=== PATIENT | female | born 1990 | race Caucasian/White ===

== ENCOUNTER 2018-09-16 20:03 | Emergency (ER) | payer OTHER ==
--- NOTE | 2018-09-16 21:10 | ED Physician Documentation ---
History of Present Illness - Stated complaint Stated Complaint: FEM - Chief complaint Chief Complaint: Abd Pain - History obtained from History obtained from: Patient - Additonal information Additional information: Patient is a 28-year-old female with history of endometriosis presenting with concern for flare of endometriosis. Patient reports that her symptoms today are exactly the same as during her normal flares. She complains of lower pelvic pain that radiates towards her back without other back pain, abdominal pain, nausea, vomiting, urinary changes, or stool changes. Patient reports no new vaginal pain, vaginal discharge, or vaginal bleeding. Patient's last menstrual period was about 1 week ago. Patient does take hormones when she is menstruating only. Patient does not have medications at home for her flares, but when she experiences a flare she sees her PCP who prescribes Dilaudid as she is allergic to codeine and other medications have not been successful. Patient is traveling from [place] to visit her and plans to return to [place] in the next several days. No other improving or worsening factors noted. Review of Systems Constitutional: denies: Fever GI: reports: Abdominal Pain. 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 - Past Surgical History Past Surgical History: Yes General: Cholecystectomy, Appendectomy /LEATHER GRAINER: section, Other - Present Medications Home Medications: Ambulatory Orders Medication Instructions Recorded Confirmed HYDROmorphone [Dilaudid] 2 mg PO Q6H #4 tablet 09/16/18 - Allergies Allergies/Adverse Reactions: Allergies Allergy/AdvReac Type Severity Reaction Status Date / Time codeine AdvReac Cramps Verified 09/16/18 20:09 - Social History Does the pt smoke?: Yes Smoking Status: Current every day smoker Does the pt drink ETOH?: No Does the pt have substance abuse?: No - Immunizations Immunizations are current?: Yes - POLST Patient has POLST: No PD ED PE NORMAL - Vitals Vital signs reviewed: Yes - General General: Alert and oriented X 3, No acute distress, Well developed/nourished - HEENT HEENT: Atraumatic, Moist mucous membranes - Neck Neck: Supple, no meningeal sign - Cardiac Cardiac: RRR, No murmur - Respiratory Respiratory: No respiratory distress, Clear bilaterally - Abdomen Abdomen: Normal bowel sounds, Soft, Non distended. No: Non tender (Extremely mild lower abdominal discomfort with palpation) - Back Back: No CVA TTP - Derm Derm: Normal color, Warm and dry, No rash - Extremities Extremities: No deformity, No tenderness to palpate - Neuro Neuro: Alert and oriented X 3, No motor deficit, No sensory deficit - Psych Psych: Normal mood, Normal affect Results - Vitals Vitals: Vital Signs - 24 hr 09/16/18 20:06 Temperature 36.2 C L Heart Rate 83 Respiratory 17 Rate Blood Pressure 123/88 H O2 Saturation 100 Oxygen O2 Source Room air PD MEDICAL DECISION MAKING - ED course Complexity details: considered differential, d/w patient, d/w family ED course: Patient presenting with concern for endometriosis flare as she experiences this regularly and today's symptoms are similar to such. Patient normally will see her primary care physician in [place] for these flares and receive IM and oral Dilaudid, however, she is traveling here visiting her . Patient denies other complicating symptoms and have lower sick concerns for ovarian torsion, ovarian cyst, fibroids, STDs, cervicitis, sepsis, as well as low suspicion for other intra-abdominal pathology given patient's previous surgeries and lack of other abdominal complaints. Do not have high suspicion for UTI or renal disease today. Do not feel patient has a requires emergent urine or blood work testing and patient agrees. Also do not feel patient requires emergent pelvic exam at this time and patient agrees. We will plan to give Dilaudid IM and small amount for home, however, advised on contacting her primary care physician for further medication and therapy, as well as other supportive cares and return precautions. Patient voiced understanding and is comfortable with discharge plan. Departure - Departure Disposition: 01 Home, Self Care Clinical Impression: Endometriosis Condition: Good Instructions: ED Endometriosis Follow-Up: your,doctor [Other] Prescriptions: HYDROmorphone [Dilaudid] 2 mg PO Q6H #4 tablet Comments: Please take other home medications as previously instructed. Please take Dilaudid as prescribed to help control endometriosis pain. Please contact your primary care physician tomorrow to schedule outpatient follow-up upon your return to [place] for further advisement on other supportive cares or refill of medication. Otherwise, if not taking Dilaudid, recommend use of ibuprofen/Tylenol as needed, as well as heat application. Return to ED sooner if experience worsening symptoms or have other concerns.
[2018-09-16] MEDS ORDERED: HYDROmorphone 1 MG/ML CARPUJECT IM STA (21:22)
[2018-09-16 22:01] VITALS: BP 127/87
== END 2018-09-16 22:02 | disposition home or self-care (01) ==
LOC: ED 20:03
DX: N80.9 Endometriosis, unspecified (principal); F17.200 Nicotine dependence, unspecified, uncomplicated
CPT/HCPCS: 99283; 99284; J1170

== ENCOUNTER 2018-12-01 12:04 | Emergency (ER) | payer OTHER ==
[2018-12-01] MEDS ORDERED: HYDROmorphone 1 MG/ML CARPUJECT IVP STA (12:37)
[2018-12-01] MEDS ORDERED: KETOROLAC 30 MG/ML VIAL IVP STA (12:37)
--- NOTE | 2018-12-01 12:39 | ED Physician Documentation ---
History of Present Illness - Stated complaint Stated Complaint: ABD PX - Chief complaint Chief Complaint: Abd Pain - History obtained from History obtained from: Patient, Family - History of Present Illness Timing: Yesterday Pain level max: 10 Pain level now: 10 - Additonal information Additional information: 28-year-old female states that she has a long history of endometriosis. She states that she normally takes Dilaudid when she has a flare. She left her prescription at home in [place]. She states she is here camping and [facility] [place] [facility]. No fevers. No vaginal bleeding or discharge. No change in sexual partners. No nausea or vomiting. Worse with movement and palpation. Better with rest. States that she has an IUD in place. She states that she has had one ablation for her endometriosis in the past. 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 - Past Surgical History Past Surgical History: Yes General: Cholecystectomy, Appendectomy /FIRE OPERATIONS FORESTER: section, Other - Present Medications Home Medications: Ambulatory Orders Medication Instructions Recorded Confirmed HYDROmorphone [Dilaudid] 2 mg PO Q6H #4 tablet 09/16/18 12/01/18 Hydromorphone HCl [Dilaudid] 4 mg PO Q6H PRN #7 tablet 12/01/18 - Allergies Allergies/Adverse Reactions: Allergies Allergy/AdvReac Type Severity Reaction Status Date / Time codeine AdvReac Cramps Verified 09/16/18 20:09 - Social History Does the pt smoke?: Yes Smoking Status: Current every day smoker Does the pt drink ETOH?: No Does the pt have substance abuse?: No - Immunizations Immunizations are current?: Yes - POLST Patient has POLST: No PD ED PE NORMAL - Vitals Vital signs reviewed: Yes - General General: Alert and oriented X 3, Well developed/nourished, Other (appears in pain) - HEENT HEENT: Moist mucous membranes - Neck Neck: Supple, no meningeal sign - Cardiac Cardiac: RRR - Respiratory Respiratory: No respiratory distress, Clear bilaterally - Abdomen Abdomen: Soft, Other (diffusely TTP lower abdomen. no peritoneal signs) - Back Back: No CVA TTP - Derm Derm: Warm and dry - Extremities Extremities: No edema - Neuro Neuro: Alert and oriented X 3 Results - Vitals Vitals: Vital Signs - 24 hr 12/01/18 12/01/18 12/01/18 12:09 12:11 14:04 Temperature 36.8 C 36.8 C 36.8 C Heart Rate 95 95 88 Respiratory 14 14 14 Rate Blood Pressure 124/90 H 124/90 H 122/88 H O2 Saturation 100 100 100 Oxygen O2 Source Room air - Labs Labs: Laboratory Tests 12/01/18 12/01/18 12/01/18 12:16 12:16 12:35 WBC 4.7 L RBC 3.93 L Hgb 12.4 Hct 36.6 L MCV 93.1 MCH 31.6 H MCHC 33.9 RDW 12.0 Plt Count 221 MPV 9.2 Neut # (Auto) 3.5 Lymph # (Auto) 0.9 L [place] # (Auto) 0.3 Eos # (Auto) 0.0 Baso # (Auto) 0.0 Absolute Nucleated RBC 0.00 Nucleated RBC % 0.0 Sodium 142 Potassium 3.4 L Chloride 106 Carbon Dioxide 26 Anion Gap 10.0 BUN 12 Creatinine 0.7 Estimated GFR (MDRD) 98 Glucose 101 H Calcium 9.3 Total Bilirubin 1.6 H AST 19 ALT 15 Alkaline Phosphatase 38 L Total Protein 7.6 Albumin 4.5 Globulin 3.1 Albumin/Globulin Ratio 1.5 Lipase 34 Urine Color YELLOW Urine Clarity CLEAR Urine pH 7.5 Ur Specific [place] 1.015 Urine Protein NEGATIVE Urine Glucose (UA) NEGATIVE Urine Ketones 15 H Urine Occult Blood NEGATIVE Urine Nitrite NEGATIVE Urine Bilirubin NEGATIVE Urine Urobilinogen 0.2 (NORMAL) Ur Leukocyte Esterase NEGATIVE Ur Microscopic Review NOT INDICATED Urine Culture Comments NOT INDICATED Urine HCG, Qual NEGATIVE PD MEDICAL DECISION MAKING - ED course Complexity details: reviewed old records, reviewed results, considered differential, d/w patient ED course: Similar to prior episodes. No acute lab abnormalities. Feels better after pain medication. Will prescribe a small amount of pain medication for home. She realizes that she will need to obtain further medications from her doctor. Patient counseled regarding signs and symptoms for which I believe and urgent re-evaluation would be necessary. Patient with good understanding of and agreement to plan and is comfortable going home at this time This document was made in part using voice recognition software. While efforts are made to proofread this document, sound alike and grammatical errors may occur. Departure - Departure Disposition: 01 Home, Self Care Clinical Impression: Endometriosis Abdominal pain Qualifiers: Abdominal location: unspecified location Qualified Code(s): R10.9 - Unspecified abdominal pain Condition: Good Instructions: ED Endometriosis Follow-Up: your,doctor in 3 days [Other] Prescriptions: Hydromorphone HCl [Dilaudid] 4 mg PO Q6H PRN #7 tablet PRN Reason: Abdominal Pain Comments: Follow-up with your doctor for further care. Return if you worsen. Do not drink alcohol or drive while on narcotic pain medicine. Note that many narcotic pain relievers also contain tylenol/acetaminophen. Please ensure that your total dose of acetaminophen from all sources does not exceed 3 grams (3000mg) per day. You may constipated on this medication, take a stool softener such as "Colace" twice a day while you are on it. Also recommend a sxil-giu-[id number] laxative such as senna or MiraLAX any day that you do not have a bowel movement. If you received narcotic pain medication in the emergency department, do not drive or operate machinery for the next 24 hours. Discharge Date/Time: 12/01/18 14:00
[2018-12-01 13:02] LABS: BASOPHILS % (AUTO) 0.4 %; EOSINOPHILS % (AUTO) 0.4 %; HGB - HEMOGLOBIN 12.4 g/dL (12.0-16.0); LYMPHOCYTES # (AUTO) 0.9 10^3/uL (1.5-3.5); LYMPHOCYTES % (AUTO) 18.6 %; MEAN CORPUSCULAR HEMOGLOBIN 31.6 pg (27.0-31.0); MEAN CORPUSCULAR HGB CONC 33.9 g/dL (32.0-36.0); MEAN CORPUSCULAR VOLUME 93.1 fL (81.0-99.0); MEAN PLATELET VOLUME 9.2 fL (7.9-10.8); MONOCYTES # (AUTO) 0.3 10^3/uL (0.0-1.0); MONOCYTES % (AUTO) 5.6 %; NEUTROPHILS # (AUTO) 3.5 10^3/uL (1.5-6.6); NEUTROPHILS % (AUTO) 74.8 %; PLT - PLATELET COUNT 221 10^3/uL (130-450); RED BLOOD COUNT 3.93 10^6/uL (4.20-5.40); WHITE BLOOD COUNT 4.7 x10^3/uL (4.8-10.8)
[2018-12-01 13:06] LABS: BILIRUBIN,URINE NEGATIVE (NEGATIVE); GLUCOSE, URINE (UA) NEGATIVE (NEGATIVE); KETONES,URINE (UA) 15 mg/dL (NEGATIVE); LEUKOCYTE ESTERASE, URINE NEGATIVE (NEGATIVE); NITRITE,URINE NEGATIVE (NEGATIVE); OCCULT BLOOD,URINE NEGATIVE (NEGATIVE); PH,URINE 7.5 PH (5.0-7.5); PROTEIN,URINE NEGATIVE (NEGATIVE); UROBILINOGEN,URINE 0.2 (NORMAL) E.U./dL (NORMAL)
[2018-12-01 13:09] LABS: CLARITY,URINE CLEAR (CLEAR); HCG UR QUAL NEGATIVE
[2018-12-01 13:15] LABS: ALBUMIN 4.5 g/dL (3.2-5.5); ALBUMIN/GLOBULIN RATIO 1.5 (1.0-2.2); BILIRUBIN,TOTAL 1.6 mg/dL (0.2-1.0); CALCIUM 9.3 mg/dL (8.5-10.3); CREATININE 0.7 mg/dL (0.4-1.0); TOTAL PROTEIN 7.6 g/dL (6.7-8.2)
[2018-12-01] MEDS ORDERED: HYDROmorphone 1 MG/ML CARPUJECT IM STA (13:32)
[2018-12-01 14:05] VITALS: BP 122/88
== END 2018-12-01 14:00 | disposition home or self-care (01) ==
LOC: ED 12:04
DX: N80.9 Endometriosis, unspecified (principal); Z97.5 Presence of (intrauterine) contraceptive device; F17.200 Nicotine dependence, unspecified, uncomplicated
CPT/HCPCS: 36415; 80053; 81003; 81025; 83690; 85025; 96372; 96374; 99283; 99284; J1170; 81001; 87086

== ENCOUNTER 2018-12-28 18:17 | Emergency (ER) | payer OTHER ==
[2018-12-28 18:23] VITALS: BP 133/78
[2018-12-28] MEDS ORDERED: HYDROmorphone 2 MG TABLET PO STA (18:39)
--- NOTE | 2018-12-28 18:42 | ED Physician Documentation ---
PD HPI ABD PAIN - Stated complaint Stated Complaint: LOWER ABD PX - Chief complaint Chief Complaint: Abd Pain - History obtained from History obtained from: Patient - History of Present Illness Timing - onset: Today (28-year-old woman who has a history of endometriosis with an excision once about a year ago. Every 2 weeks she has a flare, both with menstruation and with menstruation. Ovulation. She is having a routine flare of lower abdominal pain radiating into the right leg and back. She lives in [place] and forgot her usual pain medications. 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 - Past Surgical History Past Surgical History: Yes General: Cholecystectomy, Appendectomy /TANK TRUCK OPERATOR: section, Other - Present Medications Home Medications: Ambulatory Orders Medication Instructions Recorded Confirmed HYDROmorphone [Dilaudid] 2 mg PO Q6H #4 tablet 09/16/18 12/01/18 Hydromorphone HCl [Dilaudid] 4 mg PO Q4H PRN #7 tablet 12/28/18 Hydromorphone HCl [Dilaudid] 8 mg PO Q6H PRN 12/28/18 - Allergies Allergies/Adverse Reactions: Allergies Allergy/AdvReac Type Severity Reaction Status Date / Time doxycycline Allergy Emesis Verified 12/28/18 18:22 codeine AdvReac Cramps Verified 12/28/18 18:21 - Social History Does the pt smoke?: No Smoking Status: Never smoker Does the pt drink ETOH?: No Does the pt have substance abuse?: No - Immunizations Immunizations are current?: Yes - POLST Patient has POLST: No PD ED PE NORMAL - Vitals Vital signs reviewed: Yes - General General: Alert and oriented X 3, No acute distress - Abdomen Abdomen: Soft, Non tender - Neuro Neuro: Alert and oriented X 3, Normal speech - Psych Psych: Normal mood, Normal affect Results - Vitals Vitals: Vital Signs - 24 hr 12/28/18 18:19 Temperature 36.9 C Heart Rate 100 Respiratory 20 Rate Blood Pressure 133/78 H O2 Saturation 100 Oxygen O2 Source Room air PD MEDICAL DECISION MAKING - ED course ED course: 28-year-old woman who presents with an exacerbation of chronic pain. She is on fairly high doses of Dilaudid at home. I discussed with her that I was uncomfortable prescribing that dose, or giving her IM injections for an exacerbation of a chronic issue. She was given 4 mg orally of Dilaudid here and a prescription for a few pills, discussed that further pain medications needed to come from her physician. Departure - Departure Disposition: Home, Self Care Clinical Impression: Endometriosis Abdominal pain Qualifiers: Abdominal location: lower abdomen, unspecified Qualified Code(s): R10.30 - Lower abdominal pain, unspecified Condition: Good Record reviewed to determine appropriate education?: Yes Instructions: ED Endometriosis Prescriptions: Hydromorphone HCl [Dilaudid] 4 mg PO Q4H PRN #7 tablet PRN Reason: Pain Comments: The policy of this emergency department is to not give more than 3 prescriptions for narcotics or other controlled substances in any 1 year. You have met this benchmark and we cannot prescribe further narcotics for you. I encourage you to follow up with your primary care physician or to establish care with a primary care physician for ongoing pain management. You are always welcome to seek emergency care here for this or new issues but there will likely be limitations in the prescription of narcotic pain medication.
== END 2018-12-28 18:49 | disposition home or self-care (01) ==
LOC: ED 18:17
DX: N80.9 Endometriosis, unspecified (principal); R10.30 Lower abdominal pain, unspecified; G89.29 Other chronic pain
CPT/HCPCS: 99283; A9270

== ENCOUNTER 2021-11-29 09:15 | Emergency (ER) | payer BC, OTHER ==
--- NOTE | 2021-11-29 09:43 | ED Physician Documentation ---
PD HPI CHEST PAIN - Stated complaint Stated Complaint: SYNCOPE/CHEST/BACK PAIN - Chief complaint Chief Complaint: Neuro - History obtained from History obtained from: Patient - History of Present Illness Timing - onset: How many days ago (2) Timing - onset during: Light activity Timing - duration: Days (2 Days of general malaise, aches, coughing and anterior chest pain with deep breathing and cough. She describes 2 episodes of feeling nauseous flushed for several minutes and then fainting briefly while standing. Concerned about the chest pain and went to a walk-in clinic. Referred to the ER.) Timing - details: Gradual onset, Still present (onset of chills, cough and malaise with nausea and less intake the past 2-3 days. Having pain in anterior chest with cough and some breathing. Had episodes of syncope yesterday.), Waxing and waning Quality: Aching, Sharp, Pain Location: Substernal Radiation: Back. No: Neck Worsened by: Inspiration, Other (cough). No: Palpation Associated symptoms: Shortness of air, Nausea, Cough, Other (2 episodes of lightheadedness followed with brief syncope while standing.) Similar symptoms before: Has not had sx before Review of Systems Constitutional: reports: Chills, Myalgias, Fatigue. denies: Fever Nose: reports: Congestion Throat: denies: Sore throat Cardiac: reports: Chest pain / pressure. denies: Palpitations, Pedal edema, Calf pain Respiratory: reports: Dyspnea, Cough GI: reports: Nausea. 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 - Past Surgical History Past Surgical History: Yes General: Cholecystectomy, Appendectomy /INSPECTING ENGINEER: section, Other - Present Medications Home Medications: Ambulatory Orders Medication Instructions Recorded Confirmed HYDROmorphone [Dilaudid] 2 mg PO Q6H #4 tablet 09/16/18 12/01/18 Hydromorphone HCl [Dilaudid] 4 mg PO Q4H PRN #7 tablet 12/28/18 Hydromorphone HCl [Dilaudid] 8 mg PO Q6H PRN 12/28/18 Benzonatate [Tessalon] 100 mg PO TID PRN #20 cap 10/04/22 Ondansetron Odt [Zofran] 4 mg TL Q6H PRN #15 tablet 11/29/21 Oxycodone HCl/Acetaminophen 1 tab PO Q6H PRN #18 tablet 11/29/21 [Percocet 5-325 mg Tablet] dexAMETHasone [Decadron] 4 mg PO DAILY #5 tablet 11/29/21 - Allergies Allergies/Adverse Reactions: Allergies Allergy/AdvReac Type Severity Reaction Status Date / Time cephalexin [From Keflex] Allergy Emesis Verified 11/29/21 09:31 doxycycline Allergy Emesis Verified 12/28/18 18:22 codeine AdvReac Cramps Verified 12/28/18 18:21 - Social History Does the pt smoke?: No Smoking Status: Never smoker Does the pt drink ETOH?: No Does the pt have substance abuse?: No - Immunizations Immunizations are current?: Yes - POLST Patient has POLST: No PD ED PE NORMAL - Vitals Vital signs reviewed: Yes - General General: Alert and oriented X 3, No acute distress, Well developed/nourished - HEENT HEENT: Pharynx benign - Neck Neck: Supple, no meningeal sign, No adenopathy - Cardiac Cardiac: RRR, No murmur - Respiratory Respiratory: Clear bilaterally - Abdomen Abdomen: Soft, Non tender - Back Back: No CVA TTP - Derm Derm: Normal color, Warm and dry - Extremities Extremities: Normal ROM s pain, No edema, No calf tenderness / cord - Neuro Neuro: Alert and oriented X 3, No motor deficit, Normal speech Results - Vitals Vitals: Oxygen O2 Source Room air - EKG (time done) 09:17 Rate: Rate (enter#) (84) Rhythm: NSR [place]: Normal Intervals: Normal ID QRS: Poor R wave progression Ischemia: Normal ST segments. No: ST elevation c/w ischemia, ST depression - Labs Labs: Laboratory Tests 11/29/21 11/29/21 11/29/21 10:09 10:09 10:09 WBC 8.0 RBC 4.01 L Hgb 13.2 Hct 38.6 MCV 96.3 MCH 32.9 H MCHC 34.2 RDW 11.8 L Plt Count 257 MPV 9.3 Neut # (Auto) 6.7 H Lymph # (Auto) 1.0 L [place] # (Auto) 0.3 Eos # (Auto) 0.0 Baso # (Auto) 0.0 Absolute Nucleated RBC 0.00 Nucleated RBC % 0.0 D-Dimer Sodium 138 Potassium 3.9 Chloride 103 Carbon Dioxide 26 Anion Gap 9.0 BUN 13 Creatinine 0.9 Estimated GFR (MDRD) 72 L Glucose 99 POC Whole Bld Glucose Calcium 9.2 Total Bilirubin 0.6 AST 14 ALT 10 Alkaline Phosphatase 45 Troponin I High Sens < 2.3 L B-Natriuretic Peptide Total Protein 7.7 Albumin 4.5 Globulin 3.2 Albumin/Globulin Ratio 1.4 Lipase 30 11/29/21 11/29/21 11/29/21 10:09 10:09 10:37 WBC RBC Hgb Hct MCV MCH MCHC RDW Plt Count MPV Neut # (Auto) Lymph # (Auto) [place] # (Auto) Eos # (Auto) Baso # (Auto) Absolute Nucleated RBC Nucleated RBC % D-Dimer < 200.0 L Sodium Potassium Chloride Carbon Dioxide Anion Gap BUN Creatinine Estimated GFR (MDRD) Glucose POC Whole Bld Glucose 90 Calcium Total Bilirubin AST ALT Alkaline Phosphatase Troponin I High Sens B-Natriuretic Peptide 22 Total Protein Albumin Globulin Albumin/Globulin Ratio Lipase - Rads (name of study) chest xray Radiology: Prelim report reviewed (no acute process), See rad report PD MEDICAL DECISION MAKING - ED course Complexity details: reviewed results, considered differential (seems likley musculoskeletal related to illness/cough, with negative trop/BNP/CXR/d-dimer. ECG showing Qs anterior/poor r wave progression, which may be normal variant. ), d/w patient Departure - Departure Disposition: 01 Home, Self Care Clinical Impression: Acute chest wall pain Upper respiratory infection Qualifiers: URI type: unspecified URI Qualified Code(s): J06.9 - Acute upper respiratory infection, unspecified Condition: Stable Record reviewed to determine appropriate education?: Yes Follow-Up: Maico Torres MD [Primary Care Provider] - Prescriptions: dexAMETHasone [Decadron] 4 mg PO DAILY #5 tablet Oxycodone HCl/Acetaminophen [Percocet 5-325 mg Tablet] 1 tab PO Q6H PRN #18 tablet PRN Reason: pain Benzonatate [Tessalon] 100 mg PO TID PRN #20 cap PRN Reason: Cough Ondansetron Odt [Zofran] 4 mg TL Q6H PRN #15 tablet PRN Reason: Nausea / Vomiting Comments: Your chest x-ray and blood tests are normal. Your EKG had showed an delayed R wave progression. Unclear whether this represents some prior inflammatory process or such or can be just a normal variation of variation of normal. It does not represent an acute injury based on your blood tests. There is also no signs of pneumonia, collapsed lung, blood clots, heart failure based on your tests. I presume the pain is musculoskeletal in the chest related to coughing and illness. We can treat this with steroidal anti-inflammatories as well as medication for nausea and cough. To that add Tylenol every 4-6 hours if needed for pain or oxycodone/acetaminophen if needed for worse pain. I sent your prescriptions to [facility] pharmacy in [place]. Recheck if not improving well over the next several days. Return if worse or other symptoms. Discharge Date/Time: 11/29/21 11:50
[2021-11-29] MEDS ORDERED: SODIUM CHLORIDE 0.9% 1,000 ML IV STA (10:04)
[2021-11-29] MEDS ORDERED: HYDROmorphone 1 MG/ML CARPUJECT IVP STA ×2 (10:04→10:42)
[2021-11-29] MEDS ORDERED: ONDANSETRON 4 MG/2 ML VIAL IVP STA (10:07)
[2021-11-29 10:19] LABS: BASOPHILS % (AUTO) 0.3 %; EOSINOPHILS % (AUTO) 0.1 %; HCT - HEMATOCRIT 38.6 % (37.0-47.0); HGB - HEMOGLOBIN 13.2 g/dL (12.0-16.0); LYMPHOCYTES % (AUTO) 12.4 %; MEAN CORPUSCULAR HEMOGLOBIN 32.9 pg (27.0-31.0); MEAN CORPUSCULAR HGB CONC 34.2 g/dL (32.0-36.0); MEAN CORPUSCULAR VOLUME 96.3 fL (81.0-99.0); MEAN PLATELET VOLUME 9.3 fL (7.9-10.8); MONOCYTES # (AUTO) 0.3 10^3/uL (0.0-1.0); MONOCYTES % (AUTO) 3.4 %; NEUTROPHILS # (AUTO) 6.7 10^3/uL (1.5-6.6); NEUTROPHILS % (AUTO) 83.4 %; PLT - PLATELET COUNT 257 10^3/uL (130-450); RED BLOOD COUNT 4.01 10^6/uL (4.20-5.40); RED CELL DISTRIBUTION WIDTH 11.8 % (12.0-15.0)
[2021-11-29 10:32] LABS: ALBUMIN 4.5 g/dL (3.2-5.5); ALBUMIN/GLOBULIN RATIO 1.4 (1.0-2.2); BILIRUBIN,TOTAL 0.6 mg/dL (0.2-1.0); CALCIUM 9.2 mg/dL (8.5-10.3); CREATININE 0.9 mg/dL (0.4-1.0); POTASSIUM 3.9 mmol/L (3.5-5.0); TOTAL PROTEIN 7.7 g/dL (6.7-8.2)
--- NOTE | 2021-11-29 10:35 | XRAY Report ---
PROCEDURE: Chest 1 View X-Ray INDICATIONS: chest pain TECHNIQUE: One view of the chest was acquired. COMPARISON: None FINDINGS: Surgical changes and devices: None. Lungs and pleura: No pleural effusions or pneumothorax. Lungs are clear. Mediastinum: Mediastinal contours appear normal. Heart size is normal. Bones and chest wall: No suspicious bony lesions. Overlying soft tissues appear unremarkable. IMPRESSION: No acute cardiopulmonary pathology. Reviewed by: Beto Odell MD on 11/29/2021 10:34 AM PDT Approved by: Beto Odell MD on 11/29/2021 10:34 AM PDT Station ID: [id number]
[2021-11-29] MEDS ORDERED: DROPERIDOL 5 MG/2 ML VIAL IVP STA (10:42)
[2021-11-29] MEDS ORDERED: KETOROLAC 15 MG/ML VIAL IVP STA (10:43)
[2021-11-29 11:35] VITALS: BP 126/86
== END 2021-11-29 11:50 | disposition home or self-care (01) ==
LOC: ED 09:15
DX: R07.89 Other chest pain (principal); J06.9 Acute upper respiratory infection, unspecified
CPT/HCPCS: 36415; 71045; 80053; 83690; 83880; 84484; 85025; 85379; 93005; 96374; 96375; 96376; 99284; 99285; J1170

== ENCOUNTER 2021-12-10 17:47 | Emergency (ER) | payer BC ==
[2021-12-10] MEDS ORDERED: ONDANSETRON 4 MG/2 ML VIAL IVP STA (18:03)
[2021-12-10] MEDS ORDERED: HYDROmorphone 1 MG/ML CARPUJECT IVP STA (18:03)
[2021-12-10] MEDS ORDERED: SODIUM CHLORIDE 0.9% 1,000 ML IV STA (18:03)
[2021-12-10 18:15] LABS: BASOPHILS % (AUTO) 0.4 %; EOSINOPHILS # (AUTO) 0.1 10^3/uL (0.0-0.7); EOSINOPHILS % (AUTO) 0.9 %; HCT - HEMATOCRIT 38.9 % (37.0-47.0); HGB - HEMOGLOBIN 13.1 g/dL (12.0-16.0); LYMPHOCYTES # (AUTO) 1.9 10^3/uL (1.5-3.5); LYMPHOCYTES % (AUTO) 24.5 %; MEAN CORPUSCULAR HEMOGLOBIN 31.9 pg (27.0-31.0); MEAN CORPUSCULAR HGB CONC 33.7 g/dL (32.0-36.0); MEAN CORPUSCULAR VOLUME 94.6 fL (81.0-99.0); MEAN PLATELET VOLUME 8.8 fL (7.9-10.8); MONOCYTES # (AUTO) 0.4 10^3/uL (0.0-1.0); MONOCYTES % (AUTO) 5.6 %; NEUTROPHILS # (AUTO) 5.4 10^3/uL (1.5-6.6); PLT - PLATELET COUNT 308 10^3/uL (130-450); RED BLOOD COUNT 4.11 10^6/uL (4.20-5.40); RED CELL DISTRIBUTION WIDTH 11.9 % (12.0-15.0); WHITE BLOOD COUNT 7.9 x10^3/uL (4.8-10.8)
--- NOTE | 2021-12-10 18:23 | ED Physician Documentation ---
History of Present Illness - Stated complaint Stated Complaint: R SIDE PX - Chief complaint Chief Complaint: Abd Pain - Additonal information Additional information: 31-year-old female presents emergency department for evaluation of acute focal right lower quadrant abdominal pain that began this morning. She reports history of endometriosis. She also has a history of adenomyosis. She has undergone gone surgical excision of the endometrial tissue last in 2019. Previous surgical history also includes appendectomy, cholecystectomy and C- section x2. She denies any fevers. She has a history of interstitial cystitis but no new symptoms to suggest acute urinary infection. She does appear very uncomfortable. Patient reports that historically in the past she has been on Dilaudid for longer-term management of her pain though she has been weaned off of it for more than a year now. 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 Psych: ADD/ADHD - Past Surgical History Past Surgical History: Yes General: Cholecystectomy, Appendectomy /CABLE SPLICER APPRENTICE: section, Other - Present Medications Home Medications: Ambulatory Orders Medication Instructions Recorded Confirmed HYDROmorphone [Dilaudid] 2 mg PO Q6H #4 tablet 09/16/18 12/01/18 Hydromorphone HCl [Dilaudid] 4 mg PO Q4H PRN #7 tablet 12/28/18 Hydromorphone HCl [Dilaudid] 8 mg PO Q6H PRN 12/28/18 Benzonatate [Tessalon] 100 mg PO TID PRN #20 cap 11/29/21 Ondansetron Odt [Zofran] 4 mg TL Q6H PRN #15 tablet 11/29/21 Oxycodone HCl/Acetaminophen 1 tab PO Q6H PRN #18 tablet 11/29/21 [Percocet 5-325 mg Tablet] dexAMETHasone [Decadron] 4 mg PO DAILY #5 tablet 11/29/21 HYDROmorphone [Dilaudid] 2 mg PO BID #8 tablet 12/10/21 - Allergies Allergies/Adverse Reactions: Allergies Allergy/AdvReac Type Severity Reaction Status Date / Time cephalexin [From Keflex] Allergy Emesis Verified 12/10/21 18:00 doxycycline Allergy Emesis Verified 12/10/21 18:00 codeine AdvReac Cramps Verified 12/10/21 18:00 - Social History Does the pt smoke?: No Smoking Status: Never smoker Does the pt drink ETOH?: No Does the pt have substance abuse?: No - Immunizations Immunizations are current?: Yes - POLST Patient has POLST: No PD ED PE NORMAL - General General: Alert and oriented X 3, Well developed/nourished. No: No acute distress (Appears in pain and uncomfortable) - HEENT HEENT: Atraumatic, Moist mucous membranes - Neck Neck: Supple, no meningeal sign, No adenopathy - Cardiac Cardiac: RRR, No murmur - Respiratory Respiratory: No respiratory distress, Clear bilaterally - Abdomen Abdomen: Normal bowel sounds, Soft. No: Non tender (Focal tenderness without guarding or rebound right lower quadrant. Nonperitoneal. 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 Eye Opening: Spontaneous Motor: Obeys Commands Verbal: Oriented GCS Score: 15 Results - Vitals Vitals: Vital Signs - 24 hr 12/10/21 12/10/21 12/10/21 17:58 18:54 20:03 Temperature 36.6 C Heart Rate 87 81 71 Respiratory 16 18 20 Rate Blood Pressure 145/112 H 141/104 H 152/111 H O2 Saturation 99 100 100 Oxygen O2 Source Room air - Labs Labs: Laboratory Tests 12/10/21 12/10/21 12/10/21 18:09 18:09 18:16 WBC 7.9 RBC 4.11 L Hgb 13.1 Hct 38.9 MCV 94.6 MCH 31.9 H MCHC 33.7 RDW 11.9 L Plt Count 308 MPV 8.8 Neut # (Auto) 5.4 Lymph # (Auto) 1.9 [place] # (Auto) 0.4 Eos # (Auto) 0.1 Baso # (Auto) 0.0 Absolute Nucleated RBC 0.00 Nucleated RBC % 0.0 Sodium 135 Potassium 3.6 Chloride 101 Carbon Dioxide 25 Anion Gap 9.0 BUN 12 Creatinine 0.8 Estimated GFR (MDRD) 83 L Glucose 98 Calcium 9.4 Total Bilirubin 0.5 AST 13 ALT 13 Alkaline Phosphatase 45 Total Protein 8.1 Albumin 4.7 Globulin 3.4 Albumin/Globulin Ratio 1.4 Lipase 34 Urine Color YELLOW Urine Clarity CLEAR Urine pH 6.0 Ur Specific [place] 1.020 Urine Protein NEGATIVE Urine Glucose (UA) NEGATIVE Urine Ketones NEGATIVE Urine Occult Blood NEGATIVE Urine Nitrite NEGATIVE Urine Bilirubin NEGATIVE Urine Urobilinogen 0.2 (NORMAL) Ur Leukocyte Esterase NEGATIVE Ur Microscopic Review NOT INDICATED Urine Culture Comments NOT INDICATED Urine HCG, Qual NEGATIVE - Rads (name of study) Pelvic US Radiology: Final report received (Arterial and venous blood flow documented with both ovaries. 2.2 cm right ovarian complex cyst is present possible hemorrhagic versus corpus luteum. IUD is present.) PD MEDICAL DECISION MAKING - ED course Complexity details: reviewed results, re-evaluated patient, considered differential, d/w patient ED course: 31-year-old female presents to the emergency department For acute right lower quadrant abdominal pain. Has a previous history of cholecystectomy and appendectomy. She also has a longstanding history of poorly controlled endometriosis for which she has required surgical excision of adhesions in the past. She also states that up until about a year ago she was being managed on Dilaudid for pain control. On exam she had focal tenderness in the right lower quadrant some nausea but no vomiting. No changes in defecation. CBC and electrolytes were without acute worrisome abnormalities. She is not . A pelvic ultrasound was completed and it does show findings of a 2.1 cm cyst on the right ovary which is likely hemorrhagic. An IUD is in place. There was nothing on the ultrasound to suggest torsion. Initially in the emergency department the patient was given an injection of Dilaudid IV which she reports did not help the pain. This was then followed by Toradol which she again states did not help the pain. She states that historically only oral Dilaudid or IM Dilaudid has been helpful. I then administered 2 mg of Dilaudid IM which she states was starting to "take the edge off." Patient is encouraged to follow closely with her PCP. She would likely benefit from referral to an OB. She states that [place]. Limited prescription for Dilaudid is being sent to the pharmacy with the patient's clear understanding that no refills can be given. I am prescribing a short course of short-acting opioid pain medication for this patient. I have reviewed the patients GIZZARD PULLER and no concerning findings were noted. I have discussed that the opioids are for short term therapy only, and will not be refilled from the ED. Departure - Departure Disposition: 01 Home, Self Care Clinical Impression: Right lower quadrant abdominal pain, Cyst of right ovary, History of endometriosis Condition: Stable Record reviewed to determine appropriate education?: Yes Prescriptions: HYDROmorphone [Dilaudid] 2 mg PO BID #8 tablet Comments: You are seen today in the emergency department for pain in your right lower pelvic region. You do have a history of endometriosis. Your labs today did not show any worrisome findings. The ultrasound does show a 2.1 cm cyst on your right ovary. It is likely hemorrhagic and these can be uncomfortable and painful. With your history of endometriosis as well as difficult to control pain it is very important that you follow closely with your primary care provider. You will need a referral to an OB in the longer term. A prescription for limited dilaudid has been sent to the [facility] in [place] If at any point you develop fevers, have uncontrolled vomiting or change in your pain symptoms then please return to the ER for second evaluation. I am prescribing a short course of narcotic pain medication for you. These are potentially dangerous and addictive medications that should be used carefully. These medications may constipate you. Take an momy-ikp-smzlxwk stool softener (docusate) twice daily with plenty of water while taking these medications. If you go 24 hours without a bowel movement, take [id number]-ttyosvx miralax, per package instructions. Do not drink or drive while taking these medications. If you received narcotic or sedating medications while in the emergency department, do not drive for 24 hours. Store this medication in a safe, secure place and out of reach of children. It is a violation of federal law to give or sell this medication to another person or to use in a manner other than prescribed. The ED will not refill narcotic prescriptions, including prescriptions lost or stolen. To dispose of unwanted medications: 1. [facility] [address] in [place] has a medication drop box. They accept prescription medications (in pill form) Sunday through Sunday 9:00 a.m. to 5:00 p.m. 2. The [facility] Police Department accepts prescription medications (in pill form only) for disposal year round. Call for more information. 3. Contact the [facility] for the next [facility] sponsored prescription drug collection event. , x7310, or x7310; Note that many narcotic pain relievers also contain Tylenol/acetaminophen. Please ensure that your total dose of acetaminophen from all sources does not exceed 3 g (3000 mg) per day.
[2021-12-10 18:29] LABS: ALBUMIN 4.7 g/dL (3.2-5.5); ALBUMIN/GLOBULIN RATIO 1.4 (1.0-2.2); BILIRUBIN,TOTAL 0.5 mg/dL (0.2-1.0); CALCIUM 9.4 mg/dL (8.5-10.3); CREATININE 0.8 mg/dL (0.4-1.0); POTASSIUM 3.6 mmol/L (3.5-5.0); TOTAL PROTEIN 8.1 g/dL (6.7-8.2)
[2021-12-10 18:36] LABS: BILIRUBIN,URINE NEGATIVE (NEGATIVE); GLUCOSE, URINE (UA) NEGATIVE (NEGATIVE); KETONES,URINE (UA) NEGATIVE (NEGATIVE); LEUKOCYTE ESTERASE, URINE NEGATIVE (NEGATIVE); NITRITE,URINE NEGATIVE (NEGATIVE); OCCULT BLOOD,URINE NEGATIVE (NEGATIVE); PROTEIN,URINE NEGATIVE (NEGATIVE); UROBILINOGEN,URINE 0.2 (NORMAL) E.U./dL (NORMAL)
[2021-12-10 18:38] LABS: CLARITY,URINE CLEAR (CLEAR); HCG UR QUAL NEGATIVE
[2021-12-10] MEDS ORDERED: KETOROLAC 30 MG/ML VIAL IVP STA (19:14)
--- NOTE | 2021-12-10 19:35 | Ultrasound Report ---
PROCEDURE: Pelvic w/Transvag+Doppler Comp INDICATIONS: ITS.REASON: RLQ pain, hx of endometriosis; r/o torsion TECHNIQUE: Real-time scanning was performed of the pelvic organs, with image documentation. Additional endovagi nal scanning was necessary due to incomplete visualization of the adnexal and endometrial structures by transabdominal scanning. Doppler interrogation was performed of the ovaries bilaterally. COMPARISON: None. FINDINGS: No pathologic free abdominal or pelvic fluid. Uterus: Uterus is normal in size at 8.2 x 4.1 x 5.9 cm. The endometrium measures 8 mm in combined t hickness. An IUD is present and appears in appropriate position. Ovaries: Right ovary measures 5.4 x 2.4 x 4.7 cm, volume 32 cc. A 2.2 cm complex cyst is present. Left ovary measures 3.3 x 1.3 x 2.9 cm, volume 7 cc. Unremarkable appearance. Normal appearing arterial and venous waveforms are confirmed to each ovary.] Other: No free pelvic fluid. IMPRESSION: 1. Arterial and venous blood flow documented within both ovaries. However, please note that ovarian t orsion is a clinical diagnosis that can present with a spectrum of imaging findings. 2. A 2.2 cm right ovarian complex cyst is present, possible hemorrhagic corpus luteum. 3. An IUD is present and appears appropriately positioned. Reviewed by: Marco Antonio Perez MD on 12/10/2021 7:34 PM PDT Approved by: Marco Antonio Perez MD on 12/10/2021 7:34 PM PDT Station ID: [id number]
[2021-12-10] MEDS ORDERED: HYDROmorphone 1 MG/ML CARPUJECT IM STA (19:55)
[2021-12-10 20:35] VITALS: BP 148/96
== END 2021-12-10 20:48 | disposition home or self-care (01) ==
LOC: ED 17:47
DX: R10.31 Right lower quadrant pain (principal); R11.0 Nausea; N83.201 Unspecified ovarian cyst, right side; Z87.42 Personal history of other diseases of the female genital tract; Z97.5 Presence of (intrauterine) contraceptive device; Z90.49 Acquired absence of other specified parts of digestive tract
CPT/HCPCS: 36415; 76830; 76856; 80053; 81003; 81025; 83690; 85025; 93975; 96372; 96374; 96375; 99283; 99284; J1170; 81001; 87086

== ENCOUNTER 2022-01-18 18:29 | Emergency (ER) | payer BC ==
[2022-01-18] MEDS ORDERED: KETOROLAC 15 MG/ML VIAL IVP STA (19:12)
[2022-01-18] MEDS ORDERED: ONDANSETRON 4 MG/2 ML VIAL IVP STA (19:12)
[2022-01-18] MEDS ORDERED: HYDROmorphone 1 MG/ML CARPUJECT IVP STA ×2 (19:12→20:09)
--- NOTE | 2022-01-18 19:14 | ED Physician Documentation ---
PD HPI ABD PAIN - Stated complaint Stated Complaint: ABD PX - Chief complaint Chief Complaint: Abd Pain - History obtained from History obtained from: Patient - Additional information Additional information: 31-year-old woman with history of endometriosis, PCOS, IUD in place. She has had a appendectomy and endometriosis referred surgeries in the past. Since yesterday she had gradual onset constant worsening and now severe right lower quadrant/pelvic pain associated with spotting. She is very nauseous but has not vomited.She noted a fever of 100.0 today. Review of Systems Ten Systems: 10 systems reviewed and negative Constitutional: reports: Fever. 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 Psych: ADD/ADHD - Past Surgical History Past Surgical History: Yes General: Cholecystectomy, Appendectomy /METEOROLOGIST LIAISON: section, Other - Present Medications Home Medications: Ambulatory Orders Medication Instructions Recorded Confirmed HYDROmorphone [Dilaudid] 2 mg PO Q6H #4 tablet 09/16/18 12/01/18 Hydromorphone HCl [Dilaudid] 4 mg PO Q4H PRN #7 tablet 12/28/18 Hydromorphone HCl [Dilaudid] 8 mg PO Q6H PRN 12/28/18 Benzonatate [Tessalon] 100 mg PO TID PRN #20 cap 11/29/21 Ondansetron Odt [Zofran] 4 mg TL Q6H PRN #15 tablet 11/29/21 Oxycodone HCl/Acetaminophen 1 tab PO Q6H PRN #18 tablet 11/29/21 [Percocet 5-325 mg Tablet] dexAMETHasone [Decadron] 4 mg PO DAILY #5 tablet 11/29/21 HYDROmorphone [Dilaudid] 2 mg PO BID #8 tablet 12/10/21 Ondansetron Odt [Zofran] 4 mg TL Q6H PRN #10 tablet 01/18/22 Oxycodone HCl/Acetaminophen 1 each PO Q6H PRN #10 tablet 01/18/22 [Percocet 5-325 mg Tablet] - Allergies Allergies/Adverse Reactions: Allergies Allergy/AdvReac Type Severity Reaction Status Date / Time cephalexin [From Keflex] Allergy Emesis Verified 01/18/22 18:36 doxycycline Allergy Emesis Verified 01/18/22 18:36 codeine AdvReac Cramps Verified 01/18/22 18:36 - Social History Does the pt smoke?: No Smoking Status: Never smoker Does the pt drink ETOH?: No Does the pt have substance abuse?: No - Immunizations Immunizations are current?: Yes - POLST Patient has POLST: No PD ED PE NORMAL - Vitals Vital signs reviewed: Yes - General General: Alert and oriented X 3, Other (She appears quite uncomfortable and in pain) - HEENT HEENT: PERRL, EOMI - Neck Neck: Supple, no meningeal sign, No bony TTP - Cardiac Cardiac: RRR, No murmur - Respiratory Respiratory: No respiratory distress, Clear bilaterally - Abdomen Abdomen: Normal bowel sounds, Soft, Other (Exquisitely tender in the right lower quadrant without surgical signs) - Back Back: No CVA TTP, No spinal TTP - Derm Derm: Normal color, Warm and dry - Extremities Extremities: No edema, No calf tenderness / cord - Neuro Neuro: Alert and oriented X 3, Normal speech Results - Vitals Vitals: Vital Signs - 24 hr 01/18/22 01/18/22 01/18/22 18:32 18:36 20:36 Temperature 36.4 C L 36.5 C Heart Rate 83 83 70 Respiratory 16 16 16 Rate Blood Pressure 147/97 H 147/97 H 136/80 H O2 Saturation 100 100 100 01/18/22 22:00 Temperature Heart Rate 72 Respiratory 16 Rate Blood Pressure 130/80 O2 Saturation 100 Oxygen O2 Source Room air - Labs Labs: Laboratory Tests 01/18/22 01/18/22 01/18/22 19:12 19:12 19:12 WBC 6.5 RBC 3.92 L Hgb 12.4 Hct 36.3 L MCV 92.6 MCH 31.6 H MCHC 34.2 RDW 11.7 L Plt Count 273 MPV 9.3 Neut # (Auto) 3.9 Lymph # (Auto) 2.1 [place] # (Auto) 0.4 Eos # (Auto) 0.1 Baso # (Auto) 0.0 Absolute Nucleated RBC 0.00 Nucleated RBC % 0.0 Sodium 135 Potassium 3.3 L Chloride 100 L Carbon Dioxide 26 Anion Gap 9.0 BUN 11 Creatinine 0.8 Estimated GFR (MDRD) 83 L Glucose 89 Calcium 8.9 Total Bilirubin 0.5 AST 15 ALT 10 Alkaline Phosphatase 40 L Total Protein 7.6 Albumin 4.5 Globulin 3.1 Albumin/Globulin Ratio 1.5 Lipase 33 Serum HCG, Qual NEGATIVE Urine Color Urine Clarity Urine pH Ur Specific [place] Urine Protein Urine Glucose (UA) Urine Ketones Urine Occult Blood Urine Nitrite Urine Bilirubin Urine Urobilinogen Ur Leukocyte Esterase Ur Microscopic Review Urine Culture Comments Urine HCG, Qual 01/18/22 21:10 WBC RBC Hgb Hct MCV MCH MCHC RDW Plt Count MPV Neut # (Auto) Lymph # (Auto) [place] # (Auto) Eos # (Auto) Baso # (Auto) Absolute Nucleated RBC Nucleated RBC % Sodium Potassium Chloride Carbon Dioxide Anion Gap BUN Creatinine Estimated GFR (MDRD) Glucose Calcium Total Bilirubin AST ALT Alkaline Phosphatase Total Protein Albumin Globulin Albumin/Globulin Ratio Lipase Serum HCG, Qual Urine Color YELLOW Urine Clarity CLEAR Urine pH 6.0 Ur Specific [place] 1.020 Urine Protein NEGATIVE Urine Glucose (UA) NEGATIVE Urine Ketones TRACE Urine Occult Blood NEGATIVE Urine Nitrite NEGATIVE Urine Bilirubin NEGATIVE Urine Urobilinogen 0.2 (NORMAL) Ur Leukocyte Esterase NEGATIVE Ur Microscopic Review NOT INDICATED Urine Culture Comments NOT INDICATED Urine HCG, Qual NEGATIVE - Rads (name of study) Pelvic ultrasound demonstrates mildly complex right ovarian cyst, no evidence of torsion, free fluid etc. Radiology: EMP read contemporaneously PD MEDICAL DECISION MAKING - ED course ED course: 31-year-old woman with history of pelvic pathology including endometriosis, and polycystic ovarian syndrome presents with progressive gradual onset but now severe right pelvic pain of a days duration. She has no appendix. She was medicated with slow improvement in her pain. She notes that IM medications worked better for her than IV. Initial ultrasound showing right ovarian cyst but without evidence of torsion or free fluid, given the severity of her pain will CT image to rule out other pathology as well. Care to Dr. Griffith at shift change pending CT imaging. Departure - Departure Disposition: 01 Home, Self Care Clinical Impression: Pelvic pain in female, Cyst of right ovary, History of endometriosis Condition: Good Record reviewed to determine appropriate education?: Yes Instructions: ED Pelvic Pain [facility]O Prescriptions: Oxycodone HCl/Acetaminophen [Percocet 5-325 mg Tablet] 1 each PO Q6H PRN #10 tablet PRN Reason: pain Ondansetron Odt [Zofran] 4 mg TL Q6H PRN #10 tablet PRN Reason: Nausea / Vomiting Comments: Your ultrasound showed a small cyst on your right ovary. Your CT scan did not show any irregularities. Please have close follow-up with your primary care doctor or sterile processing technician regarding your symptoms.I have sent a small prescription of pain medications to [facility] in [place] Along with nausea medication. They do have limited hours on Thanksgiving so I would call in the morning to make sure that you pick these up in time before they close. I am prescribing a short course of narcotic pain medication for you. These are potentially dangerous and addictive medications that should be used carefully. These medications may constipate you. Take an llwd-gyt-nfkmfti stool softener (docusate) twice daily with plenty of water while taking these medications. If you go 24 hours without a bowel movement, take qbso-fmf-lvsmbtu miralax, per package instructions. Do not drink or drive while taking these medications. If you received narcotic or sedating medications while in the emergency department, do not drive for 24 hours. Store this medication in a safe, secure place and out of reach of children. It is a violation of federal law to give or sell this medication to another person or to use in a manner other than prescribed. The ED will not refill narcotic prescriptions, including prescriptions lost or stolen. To dispose of unwanted medications: 1. [facility] at [address] in [place] has a medication drop box. They accept prescription medications (in pill form) Sunday through Sunday 9:00 a.m. to 5:00 p.m. 2. The [facility] Police Department accepts prescription medications (in pill form only) for disposal year round. Call for more information. 3. Contact the [facility] for the next [facility] sponsored prescription drug collection event. , [id number], or [id number]; Note that many narcotic pain relievers also contain Tylenol/acetaminophen. Please ensure that your total dose of acetaminophen from all sources does not exceed 3 g (3000 mg) per day. Discharge Date/Time: 01/18/22 23:39
[2022-01-18 19:17] LABS: BASOPHILS % (AUTO) 0.5 %; EOSINOPHILS # (AUTO) 0.1 10^3/uL (0.0-0.7); EOSINOPHILS % (AUTO) 0.9 %; HCT - HEMATOCRIT 36.3 % (37.0-47.0); HGB - HEMOGLOBIN 12.4 g/dL (12.0-16.0); LYMPHOCYTES # (AUTO) 2.1 10^3/uL (1.5-3.5); LYMPHOCYTES % (AUTO) 31.8 %; MEAN CORPUSCULAR HEMOGLOBIN 31.6 pg (27.0-31.0); MEAN CORPUSCULAR HGB CONC 34.2 g/dL (32.0-36.0); MEAN CORPUSCULAR VOLUME 92.6 fL (81.0-99.0); MEAN PLATELET VOLUME 9.3 fL (7.9-10.8); MONOCYTES # (AUTO) 0.4 10^3/uL (0.0-1.0); MONOCYTES % (AUTO) 5.9 %; NEUTROPHILS # (AUTO) 3.9 10^3/uL (1.5-6.6); NEUTROPHILS % (AUTO) 60.6 %; PLT - PLATELET COUNT 273 10^3/uL (130-450); RED BLOOD COUNT 3.92 10^6/uL (4.20-5.40); RED CELL DISTRIBUTION WIDTH 11.7 % (12.0-15.0); WHITE BLOOD COUNT 6.5 x10^3/uL (4.8-10.8)
[2022-01-18 19:31] LABS: ALBUMIN 4.5 g/dL (3.2-5.5); ALBUMIN/GLOBULIN RATIO 1.5 (1.0-2.2); BILIRUBIN,TOTAL 0.5 mg/dL (0.2-1.0); CALCIUM 8.9 mg/dL (8.5-10.3); CREATININE 0.8 mg/dL (0.4-1.0); POTASSIUM 3.3 mmol/L (3.5-5.0); TOTAL PROTEIN 7.6 g/dL (6.7-8.2)
[2022-01-18] MEDS ORDERED: HYDROmorphone 1 MG/ML CARPUJECT IM STA ×3 (20:26→23:26)
[2022-01-18] MEDS ORDERED: KETOROLAC 60 MG/2 ML VIAL IM STA (20:26)
[2022-01-18] MEDS ORDERED: iohexoL-300 100 ML VIAL ONE (20:35)
[2022-01-18 20:54] LABS: HCG,QUALITATIVE BLOOD NEGATIVE
[2022-01-18] MEDS ORDERED: SODIUM CHLORIDE 0.9% 1,000 ML IV STA (20:54)
--- NOTE | 2022-01-18 21:19 | Ultrasound Report ---
PROCEDURE: Pelvic w/Doppler Complete INDICATIONS: R pelvic pain TECHNIQUE: Real-time scanning was performed of the pelvic organs, with image documentation. Doppler interrogati on was performed of the ovaries bilaterally. COMPARISON: Pelvic ultrasound 12/10/2021. FINDINGS: No pathologic free abdominal or pelvic fluid. Uterus: Uterus is anteverted and measures 11.5 x 4 x 4.8 cm. The endometrium measures up to 0.5 cm. An IUD is demonstrated extending into the fundal endometrium. Ovaries: The right ovary measures 4.1 x 1.5 x 4 cm with volume of 13.2 mL. The left ovary measures 3 .6 x 2.7 x 3.2 cm with volume of 60.1 mL. There is a heterogeneous hypoechoic cyst within the right o vary measuring approximately 2.1 x 1 x 1.5 cm. Anechoic cyst is demonstrated within the left ovary me asuring up to 3.2 cm. There is patent arterial and venous flow demonstrated in both ovaries. Other: No free pelvic fluid. IMPRESSION: 1. No evidence of ovarian torsion. 2. Mildly complex right ovarian cyst suggestive of a small hemorrhagic cyst. Reviewed by: Mil Deng MD on 01/18/2022 9:17 PM PST Approved by: Mil Deng MD on 01/18/2022 9:17 PM PST Station ID: [id number]
[2022-01-18 21:20] LABS: BILIRUBIN,URINE NEGATIVE (NEGATIVE); GLUCOSE, URINE (UA) NEGATIVE (NEGATIVE); KETONES,URINE (UA) TRACE mg/dL (NEGATIVE); LEUKOCYTE ESTERASE, URINE NEGATIVE (NEGATIVE); NITRITE,URINE NEGATIVE (NEGATIVE); OCCULT BLOOD,URINE NEGATIVE (NEGATIVE); PROTEIN,URINE NEGATIVE (NEGATIVE); UROBILINOGEN,URINE 0.2 (NORMAL) E.U./dL (NORMAL)
[2022-01-18 21:23] LABS: CLARITY,URINE CLEAR (CLEAR); HCG UR QUAL NEGATIVE
[2022-01-18 22:24] VITALS: BP 130/80
--- NOTE | 2022-01-18 23:18 | CT Report ---
PROCEDURE: ABDOMEN/PELVIS WO INDICATIONS: low abd pain TECHNIQUE: Noncontrast 5 mm thick sections acquired from the diaphragms to the symphysis. 5 mm coronal and sagi ttal reformats were then performed. For radiation dose reduction, the following was used: automated exposure control, adjustment of mA and/or kV according to patient size. COMPARISON: None. FINDINGS: Image quality: Excellent. Lung bases:There is minimal dependent atelectasis. Heart: Heart is normal in size. ABDOMEN: Liver:Noncontrast evaluation of liver demonstrates no discrete mass lesion. Gallbladder:Surgically absent. Biliary ducts: No biliary ductal dilatation. Pancreas: Unremarkable. Spleen: Normal in size. Adrenal Glands: No adrenal nodules. Kidneys and Ureters: No hydronephrosis. No nephrolithiasis. Ureters are nondistended. Stomach and Bowel: Stomach and small bowel are normal in caliber and wall thickness. The appendix is not discretely visualized but there are no pericecal inflammatory changes to suggest appendicitis. A few adjacent surgical clips in the right lower quadrant suggests sequelae of prior appendectomy. The re are a few colonic diverticula without evidence of acute diverticulitis. Peritoneum: No abnormal intraperitoneal fluid. No free air. Ventral Wall: No hernia. Abdominal Nodes: No retroperitoneal or mesenteric adenopathy by size criteria. Vessels: Aorta and inferior vena cava are normal in size. PELVIS: Pelvic Organs:An IUD appears in appropriate position within the uterus.. Bladder: Unremarkable. Pelvic Nodes: No enlarged lymph nodes. Miscellaneous: No inguinal hernias are seen. Bones: Visualized osseous structures demonstrate no suspicious focal lesions. IMPRESSION: 1. No definite acute intra-abdominal abnormality. 2. No evidence of acute appendicitis. 3. No nephrolithiasis or obstructive uropathy. Reviewed by: Mil Arboleda MD on 01/18/2022 11:17 PM PST Approved by: Mil Arboleda MD on 01/18/2022 11:17 PM PST Station ID: [id number]
[2022-01-18] MEDS ORDERED: oxyCODONE/ACET 5/325 Prepack 4 PO STA (23:26)
--- NOTE | 2022-01-18 23:30 | ED Physician Documentation ---
ED Addendum - Addendum Addendum: 01/18/22 23:27 Patient signed out to me by Dr. Ervin. Plan to follow-up on CT scan. IMPRESSION: 1. No definite acute intra-abdominal abnormality. 2. No evidence of acute appendicitis. 3. No nephrolithiasis or obstructive uropathy. Ultrasound and labs were reviewed by Dr. Ervin.Ultrasound demonstrates a mildly complex right ovarian cyst suggestive of a small hemorrhagic cyst with no evidence of ovarian torsion. Her labs are unremarkable. Patient appears comfortable, sitting in the stretcher using her phone when I went to review her CT scan. She reports still having continued pain and I did offer pain medications for home. She did request an IM dose of Dilaudid which is what she has been getting through her ED course prior to discharge.She states that the IM helps her better than other routes and that she has been dealing with this for a long time and that her pain is related to endometriosis. Will provide 1 additional IM dose of Dilaudid prior to discharge along with pain medications for home. Patient advised on need for close follow-up as well as concerning symptoms to return for. Departure - Departure Disposition: 01 Home, Self Care Clinical Impression: Pelvic pain in female, Cyst of right ovary, History of endometriosis Condition: Good Instructions: ED Pelvic Pain [facility] Prescriptions: Oxycodone HCl/Acetaminophen [Percocet 5-325 mg Tablet] 1 each PO Q6H PRN #10 tablet PRN Reason: pain Ondansetron Odt [Zofran] 4 mg TL Q6H PRN #10 tablet PRN Reason: Nausea / Vomiting Comments: Your ultrasound showed a small cyst on your right ovary. Your CT scan did not show any irregularities. Please have close follow-up with your primary care doctor or manager distribution center regarding your symptoms.I have sent a small prescription of pain medications to [facility] in [place] Along with nausea medication. They do have limited hours on Thanksgiving so I would call in the morning to make sure that you pick these up in time before they close. I am prescribing a short course of narcotic pain medication for you. These are potentially dangerous and addictive medications that should be used carefully. These medications may constipate you. Take an iyuk-jgk-zxgfitz stool softener (docusate) twice daily with plenty of water while taking these medications. If you go 24 hours without a bowel movement, take aguy-jms-feuwunr miralax, per package instructions. Do not drink or drive while taking these medications. If you received narcotic or sedating medications while in the emergency department, do not drive for 24 hours. Store this medication in a safe, secure place and out of reach of children. It is a violation of federal law to give or sell this medication to another person or to use in a manner other than prescribed. The ED will not refill narcotic prescriptions, including prescriptions lost or stolen. To dispose of unwanted medications: 1. [facility] at [address] in [place] has a medication drop box. They accept prescription medications (in pill form) Sunday through Sunday 9:00 a.m. to 5:00 p.m. 2. [facility] accepts prescription medications (in pill form only) for disposal year round. Call for more information. 3. Contact the [facility] for the next [facility] sponsored prescription drug collection event. , [phone], or [phone]; Note that many narcotic pain relievers also contain Tylenol/acetaminophen. Please ensure that your total dose of acetaminophen from all sources does not exceed 3 g (3000 mg) per day. Discharge Date/Time: 01/18/22 23:39
== END 2022-01-18 23:39 | disposition home or self-care (01) ==
LOC: ED 18:29
DX: R10.2 Pelvic and perineal pain (principal); N83.291 Other ovarian cyst, right side; Z87.42 Personal history of other diseases of the female genital tract
CPT/HCPCS: 36415; 74176; 76856; 80053; 81003; 81025; 83690; 84703; 85025; 93975; 96372; 96374; 96375; 96376; 99284; J1170; Q9967; 81001; 87086

== ENCOUNTER 2022-03-13 08:31 | Emergency (ER) | payer BC ==
[2022-03-13] MEDS ORDERED: SODIUM CHLORIDE 0.9% 1,000 ML IV STA (09:43)
[2022-03-13] MEDS ORDERED: ONDANSETRON 4 MG/2 ML VIAL IVP STA (09:43)
[2022-03-13] MEDS ORDERED: HYDROmorphone 1 MG/ML CARPUJECT IVP STA ×2 (09:43→10:44)
--- NOTE | 2022-03-13 09:46 | ED Physician Documentation ---
PD HPI FEMALE - Stated complaint Stated Complaint: ABD PX/NOT EATING - Chief complaint Chief Complaint: Abd Pain - History obtained from History obtained from: Patient - History of Present Illness Timing - duration: Days Timing - details: Gradual onset, Still present Associated symptoms: No: Fever, Vaginal bleeding, Vaginal discharge Contributing factors: Other (hx of endometriosis) Similar symptoms before: Diagnosis (endometriosis) Recently seen: Not recently seen - Additional information Additional information: 31-year-old female with a history of endometriosis is developed her typical endometrial pain on the right side radiating to her right flank. She is very uncomfortable with this she has been vomiting unable to hold her pain medication down at home. She states this is similar to what she is had previously. She usually does not have a problem with vomiting and is able to control the pain with her pain medications at home. She denies any urinary symptoms. 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 Psych: ADD/ADHD - Past Surgical History Past Surgical History: Yes General: Cholecystectomy, Appendectomy /FASHION DESIGN PROFESSOR: section, Other - Present Medications Home Medications: Ambulatory Orders Medication Instructions Recorded Confirmed HYDROmorphone [Dilaudid] 2 mg PO Q6H #4 tablet 09/16/18 12/01/18 Hydromorphone HCl [Dilaudid] 4 mg PO Q4H PRN #7 tablet 12/28/18 Hydromorphone HCl [Dilaudid] 8 mg PO Q6H PRN 12/28/18 Benzonatate [Tessalon] 100 mg PO TID PRN #20 cap 11/29/21 Ondansetron Odt [Zofran] 4 mg TL Q6H PRN #15 tablet 11/29/21 Oxycodone HCl/Acetaminophen 1 tab PO Q6H PRN #18 tablet 11/29/21 [Percocet 5-325 mg Tablet] dexAMETHasone [Decadron] 4 mg PO DAILY #5 tablet 11/29/21 HYDROmorphone [Dilaudid] 2 mg PO BID #8 tablet 12/10/21 Ondansetron Odt [Zofran] 4 mg TL Q6H PRN #10 tablet 01/18/22 Oxycodone HCl/Acetaminophen 1 each PO Q6H PRN #10 tablet 01/18/22 [Percocet 5-325 mg Tablet] - Allergies Allergies/Adverse Reactions: Allergies Allergy/AdvReac Type Severity Reaction Status Date / Time cephalexin [From Keflex] Allergy Emesis Verified 03/13/22 08:38 doxycycline Allergy Emesis Verified 03/13/22 08:38 codeine AdvReac Cramps Verified 03/13/22 08:38 - Social History Does the pt smoke?: No Smoking Status: Never smoker Does the pt drink ETOH?: No Does the pt have substance abuse?: No - Immunizations Immunizations are current?: Yes - POLST Patient has POLST: No PD ED PE NORMAL - Vitals Vital signs reviewed: Yes (Hypertensive) - General General: Alert and oriented X 3, Well developed/nourished, Other (Flattened affect and charge manager tone consistent with pain) - HEENT HEENT: Atraumatic, PERRL, EOMI - Neck Neck: Supple, no meningeal sign, No bony TTP - Cardiac Cardiac: RRR, No murmur - Respiratory Respiratory: No respiratory distress, Clear bilaterally - Abdomen Abdomen: Soft, Non distended, No organomegaly, Other (Right lower quadrant tenderness with guarding no left upper quadrant right upper quadrant or left lower quadrant tenderness.) - Back Back: No CVA TTP, No spinal TTP - Derm Derm: Normal color, Warm and dry, No rash - Extremities Extremities: No deformity, No edema - Neuro Neuro: Alert and oriented X 3, 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 technical officer 2-12 intact, No motor deficit, No sensory deficit, Normal speech Eye Opening: Spontaneous Motor: Obeys Commands Verbal: Oriented GCS Score: 15 - Psych Psych: Normal mood Results - Vitals Vitals: Vital Signs - 24 hr 03/13/22 03/13/22 03/13/22 08:36 09:58 11:33 Temperature 36.8 C Heart Rate 98 92 90 Respiratory 16 16 20 Rate Blood Pressure 154/104 H 156/104 H O2 Saturation 100 97 100 03/13/22 12:27 Temperature Heart Rate 103 H Respiratory 20 Rate Blood Pressure 134/84 H O2 Saturation 100 Oxygen O2 Source Room air - Labs Labs: Laboratory Tests 03/13/22 03/13/22 03/13/22 09:50 10:04 10:04 WBC 5.7 RBC 4.20 Hgb 13.4 Hct 39.1 MCV 93.1 MCH 31.9 H MCHC 34.3 RDW 12.2 Plt Count 297 MPV 9.7 Neut # (Auto) 4.3 Lymph # (Auto) 1.1 L [place]borne # (Auto) 0.3 Eos # (Auto) 0.0 Baso # (Auto) 0.0 Absolute Nucleated RBC 0.00 Nucleated RBC % 0.0 Sodium 135 Potassium 3.7 Chloride 102 Carbon Dioxide 24 Anion Gap 9.0 BUN 11 Creatinine 0.9 Estimated GFR (MDRD) 72 L Glucose 98 Calcium 9.1 Total Bilirubin 0.7 AST 15 ALT 13 Alkaline Phosphatase 41 L Total Protein 7.8 Albumin 4.5 Globulin 3.3 Albumin/Globulin Ratio 1.4 Lipase 34 Urine Color YELLOW Urine Clarity CLEAR Urine pH 6.0 Ur Specific [place] 1.025 Urine Protein NEGATIVE Urine Glucose (UA) NEGATIVE Urine Ketones NEGATIVE Urine Occult Blood NEGATIVE Urine Nitrite NEGATIVE Urine Bilirubin NEGATIVE Urine Urobilinogen 0.2 (NORMAL) Ur Leukocyte Esterase NEGATIVE Ur Microscopic Review NOT INDICATED Urine Culture Comments NOT INDICATED Urine HCG, Qual NEGATIVE PD Medical Decision Making - ED course Complexity details: reviewed old records, reviewed results, re-evaluated patient, considered differential, d/w patient Reviewed Lab Results: We ordered and reviewed a complete blood count blood chemistries and urinalysis. The results were normal white blood cell count hemoglobin hematocrit and platelets, normal electrolytes kidney and liver function. Normal urinalysis. No evidence of infection. Drug Therapy Requiring Monitoring for Toxicity: We administered high doses of intravenous narcotic pain reliever requiring cardiac monitoring. We administered 2 mg intravenous doses twice. In addition we ordered antinausea medicine including Compazine and Benadryl. Patient tolerated these medications. ED course: 31-year-old female with a history of endometriosis has a pain crisis today and she required high doses of narcotic analgesic for rescue. We gave the patient 2 intravenous doses of 2 mg of Dilaudid followed by 1 mg IM. She had control of her nausea and vomiting at the time of discharge. Departure - Departure Disposition: 01 Home, Self Care Clinical Impression: Pain crisis, Endometriosis Condition: Stable Instructions: ED Endometriosis Follow-Up: Maico Torres MD [Primary Care Provider] - Comments: [place] today it looks like you have lost control of your pain and we were able to provide some control. Continue your usual medications as previously. Follow-up with Dr. Torres. Discharge Date/Time: 03/13/22 12:28
[2022-03-13 09:56] LABS: BASOPHILS % (AUTO) 0.3 %; EOSINOPHILS % (AUTO) 0.2 %; HCT - HEMATOCRIT 39.1 % (37.0-47.0); HGB - HEMOGLOBIN 13.4 g/dL (12.0-16.0); LYMPHOCYTES # (AUTO) 1.1 10^3/uL (1.5-3.5); MEAN CORPUSCULAR HEMOGLOBIN 31.9 pg (27.0-31.0); MEAN CORPUSCULAR HGB CONC 34.3 g/dL (32.0-36.0); MEAN CORPUSCULAR VOLUME 93.1 fL (81.0-99.0); MEAN PLATELET VOLUME 9.7 fL (7.9-10.8); MONOCYTES # (AUTO) 0.3 10^3/uL (0.0-1.0); MONOCYTES % (AUTO) 5.4 %; NEUTROPHILS # (AUTO) 4.3 10^3/uL (1.5-6.6); NEUTROPHILS % (AUTO) 74.6 %; PLT - PLATELET COUNT 297 10^3/uL (130-450); RED CELL DISTRIBUTION WIDTH 12.2 % (12.0-15.0); WHITE BLOOD COUNT 5.7 x10^3/uL (4.8-10.8)
[2022-03-13 10:04] LABS: BILIRUBIN,URINE NEGATIVE (NEGATIVE); CLARITY,URINE CLEAR (CLEAR); GLUCOSE, URINE (UA) NEGATIVE (NEGATIVE); KETONES,URINE (UA) NEGATIVE (NEGATIVE); LEUKOCYTE ESTERASE, URINE NEGATIVE (NEGATIVE); NITRITE,URINE NEGATIVE (NEGATIVE); OCCULT BLOOD,URINE NEGATIVE (NEGATIVE); PROTEIN,URINE NEGATIVE (NEGATIVE); UROBILINOGEN,URINE 0.2 (NORMAL) E.U./dL (NORMAL)
[2022-03-13 10:07] LABS: HCG UR QUAL NEGATIVE
[2022-03-13 10:23] LABS: ALBUMIN 4.5 g/dL (3.2-5.5); ALBUMIN/GLOBULIN RATIO 1.4 (1.0-2.2); BILIRUBIN,TOTAL 0.7 mg/dL (0.2-1.0); CALCIUM 9.1 mg/dL (8.5-10.3); CREATININE 0.9 mg/dL (0.4-1.0); POTASSIUM 3.7 mmol/L (3.5-5.0); TOTAL PROTEIN 7.8 g/dL (6.7-8.2)
[2022-03-13] MEDS ORDERED: diphenhydrAMINE INJ 50 MG/ML VIAL IVP STA (10:45)
[2022-03-13] MEDS ORDERED: PROCHLORPERAZINE 10 MG/2 ML VIAL IVP STA (10:45)
[2022-03-13] MEDS ORDERED: HYDROmorphone 1 MG/ML CARPUJECT IM STA (12:24)
[2022-03-13 12:28] VITALS: BP 134/84
== END 2022-03-13 12:28 | disposition home or self-care (01) ==
LOC: ED 08:31
DX: N80.9 Endometriosis, unspecified (principal)
CPT/HCPCS: 36415; 80053; 81003; 81025; 83690; 85025; 96374; 96375; 99283; J1170; J1200; 81001; 87086

== ENCOUNTER 2022-05-07 12:06 | Emergency (ER) | payer BC, OTHER ==
[2022-05-07 12:49] LABS: HCT - HEMATOCRIT 39.5 % (37.0-47.0); HGB - HEMOGLOBIN 13.3 g/dL (12.0-16.0); LYMPHOCYTES % (AUTO) 49.5 %; MEAN CORPUSCULAR HEMOGLOBIN 31.3 pg (27.0-31.0); MEAN CORPUSCULAR HGB CONC 33.7 g/dL (32.0-36.0); MEAN CORPUSCULAR VOLUME 92.9 fL (81.0-99.0); MONOCYTES # (AUTO) 0.2 10^3/uL (0.0-1.0); MONOCYTES % (AUTO) 8.3 %; NEUTROPHILS # (AUTO) 0.8 10^3/uL (1.5-6.6); NEUTROPHILS % (AUTO) 42.2 %; PLT - PLATELET COUNT 202 10^3/uL (130-450); RED BLOOD COUNT 4.25 10^6/uL (4.20-5.40); RED CELL DISTRIBUTION WIDTH 12.1 % (12.0-15.0)
[2022-05-07] MEDS ORDERED: KETOROLAC 15 MG/ML VIAL IVP STA ×2 (12:50→15:18)
[2022-05-07] MEDS ORDERED: ONDANSETRON 4 MG/2 ML VIAL IVP STA (12:50)
[2022-05-07] MEDS ORDERED: HYDROmorphone 1 MG/ML CARPUJECT IVP STA ×2 (12:50→15:18)
--- NOTE | 2022-05-07 12:50 | ED Physician Documentation ---
PD HPI ABD PAIN - Stated complaint Stated Complaint: VOMITING,RT SIDE ABD PX - Chief complaint Chief Complaint: Abd Pain - History obtained from History obtained from: Patient - Additional information Additional information: 31-year-old woman with history of endometriosis and ovarian cyst. She has an IUD in place that does not really have menses but she thinks she is ovulating now. She presents with right lower quadrant pain consistent with prior episodes of ovarian cyst pain starting at 9 AM this morning. Is not the worst its ever been. She has been spotting today. Denies fevers or chills. She does not have an appendix. 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 Psych: ADD/ADHD - Past Surgical History Past Surgical History: Yes General: Cholecystectomy, Appendectomy /PRICE LISTER: section, Other - Present Medications Home Medications: Ambulatory Orders Medication Instructions Recorded Confirmed HYDROmorphone [Dilaudid] 2 mg PO Q6H #4 tablet 09/16/18 12/01/18 Hydromorphone HCl [Dilaudid] 4 mg PO Q4H PRN #7 tablet 12/28/18 Hydromorphone HCl [Dilaudid] 8 mg PO Q6H PRN 12/28/18 Benzonatate [Tessalon] 100 mg PO TID PRN #20 cap 11/29/21 Ondansetron Odt [Zofran] 4 mg TL Q6H PRN #15 tablet 11/29/21 Oxycodone HCl/Acetaminophen 1 tab PO Q6H PRN #18 tablet 11/29/21 [Percocet 5-325 mg Tablet] dexAMETHasone [Decadron] 4 mg PO DAILY #5 tablet 11/29/21 HYDROmorphone [Dilaudid] 2 mg PO BID #8 tablet 12/10/21 Ondansetron Odt [Zofran] 4 mg TL Q6H PRN #10 tablet 01/18/22 Oxycodone HCl/Acetaminophen 1 each PO Q6H PRN #10 tablet 01/18/22 [Percocet 5-325 mg Tablet] Ondansetron Odt [Zofran] 4 mg TL Q6H PRN #10 tablet 05/07/22 - Allergies Allergies/Adverse Reactions: Allergies Allergy/AdvReac Type Severity Reaction Status Date / Time cephalexin [From Keflex] Allergy Emesis Verified 05/07/22 12:21 doxycycline Allergy Emesis Verified 05/07/22 12:21 codeine AdvReac Cramps Verified 05/07/22 12:21 - Social History Does the pt smoke?: No Smoking Status: Never smoker Does the pt drink ETOH?: No Does the pt have substance abuse?: No - Immunizations Immunizations are current?: Yes - POLST Patient has POLST: No PD ED PE NORMAL - Vitals Vital signs reviewed: Yes - General General: Alert and oriented X 3, No acute distress - Abdomen Abdomen: Normal bowel sounds, Soft, Other (Tender in the right pelvis without surgical signs) - Back Back: No CVA TTP, No spinal TTP - Derm Derm: Normal color - Neuro Neuro: Alert and oriented X 3, Normal speech Results - Vitals Vitals: Vital Signs - 24 hr 05/07/22 05/07/22 12:16 15:30 Temperature 36.2 C L Heart Rate 109 H 76 Respiratory 18 16 Rate Blood Pressure 129/87 H 138/101 H O2 Saturation 98 96 Oxygen O2 Source Room air - Labs Labs: Laboratory Tests 05/07/22 05/07/22 05/07/22 12:44 12:44 14:50 WBC 1.9 L* RBC 4.25 Hgb 13.3 Hct 39.5 MCV 92.9 MCH 31.3 H MCHC 33.7 RDW 12.1 Plt Count 202 MPV 9.0 Neut # (Auto) 0.8 L Lymph # (Auto) 1.0 L [place] # (Auto) 0.2 Eos # (Auto) 0.0 Baso # (Auto) 0.0 Absolute Nucleated RBC 0.00 Band Neuts % (Manual) Not Reportable Abnorm Lymph % (Manual) Not Reportable Nucleated RBC % 0.0 Neutrophils # (Manual) Not Reportable Lymphocytes # (Manual) Not Reportable Monocytes # (Manual) Not Reportable Eosinophils # (Manual) Not Reportable Basophils # (Manual) Not Reportable Differential Comment MANUAL=AUTO DIFF Platelet Estimate NORMAL (130-450,000) RBC Morph Micro Appear NORMAL APPEARANCE Sodium 140 Potassium 3.3 L Chloride 108 Carbon Dioxide 24 Anion Gap 8.0 BUN 6 Creatinine 0.8 Estimated GFR (MDRD) 83 L Glucose 103 H Calcium 8.8 Total Bilirubin 0.2 AST 23 ALT 17 Alkaline Phosphatase 32 L Total Protein 7.6 Albumin 4.2 Globulin 3.4 Albumin/Globulin Ratio 1.2 Lipase 39 Urine Color YELLOW Urine Clarity CLEAR Urine pH 6.5 Ur Specific [place] 1.010 Urine Protein NEGATIVE Urine Glucose (UA) NEGATIVE Urine Ketones TRACE Urine Occult Blood TRACE-INTA Urine Nitrite NEGATIVE Urine Bilirubin NEGATIVE Urine Urobilinogen 0.2 (NORMAL) Ur Leukocyte Esterase NEGATIVE Ur Microscopic Review NOT INDICATED Urine Culture Comments NOT INDICATED Urine HCG, Qual 05/07/22 14:50 WBC RBC Hgb Hct MCV MCH MCHC RDW Plt Count MPV Neut # (Auto) Lymph # (Auto) [place]ascade # (Auto) Eos # (Auto) Baso # (Auto) Absolute Nucleated RBC Band Neuts % (Manual) Abnorm Lymph % (Manual) Nucleated RBC % Neutrophils # (Manual) Lymphocytes # (Manual) Monocytes # (Manual) Eosinophils # (Manual) Basophils # (Manual) Differential Comment Platelet Estimate RBC Morph Micro Appear Sodium Potassium Chloride Carbon Dioxide Anion Gap BUN Creatinine Estimated GFR (MDRD) Glucose Calcium Total Bilirubin AST ALT Alkaline Phosphatase Total Protein Albumin Globulin Albumin/Globulin Ratio Lipase Urine Color Urine Clarity Urine pH Ur Specific [place] Urine Protein Urine Glucose (UA) Urine Ketones Urine Occult Blood Urine Nitrite Urine Bilirubin Urine Urobilinogen Ur Leukocyte Esterase Ur Microscopic Review Urine Culture Comments Urine HCG, Qual NEGATIVE - Rads (name of study) Pelvic sono Relevant Findings:: Final report received, EMP independent interpretation of test PD Medical Decision Making - ED course Complexity details: reviewed results (CBC reviewed with low white cell count, suspect related to recent paxlovid and COVID. CMP reviewed and normal. Urinalysis negative. Urine test negative.) ED course: 31-year-old woman with an exacerbation of chronic pelvic pain that could be related to cysts or endometriosis. She did have fairly high a need for pain medications here. In fact preferred IM medications. She was reassessed several times, Ultrasound was negative for torsion. She received a total of 4 mg of Dilaudid, combination of IV and IM here. She claimed minimal relief with these. She was noted to be comfortable in the room except when I would walk in she would start feet appear very uncomfortable. She would request specific doses of narcotics, i.e. 3 to 4 mg of Dilaudid IM which was I was uncomfortable giving. Departure - Departure Disposition: 01 Home, Self Care Clinical Impression: Pelvic pain in female Condition: Good Record reviewed to determine appropriate education?: Yes Instructions: ED Pelvic Pain [facility] Prescriptions: Ondansetron Odt [Zofran] 4 mg TL Q6H PRN #10 tablet PRN Reason: Nausea / Vomiting Comments: We found that your white blood cell count was quite low today. My suspicion is this is due to the recent COVID and/or the paxlovid you took. Should be rechecked with your doctor in a week or 2. Follow-up with Dr. Olson, consider referral to a specialist. As discussed since you are getting regular pain prescriptions from your primary care physician, we cannot prescribe medications for you for pain as an outpatient. You can take Tylenol and/or ibuprofen as needed for pain. Return for new or worsening symptoms. As discussed, given the lack of emergent findings, it is no longer appropriate for us to prescribe or dispense narcotics for exacerbations of pelvic pain.
[2022-05-07 13:02] LABS: WHITE BLOOD COUNT 1.9 x10^3/uL (4.8-10.8)
[2022-05-07 13:18] LABS: ALBUMIN 4.2 g/dL (3.2-5.5); ALBUMIN/GLOBULIN RATIO 1.2 (1.0-2.2); BILIRUBIN,TOTAL 0.2 mg/dL (0.2-1.0); CALCIUM 8.8 mg/dL (8.5-10.3); CREATININE 0.8 mg/dL (0.4-1.0); POTASSIUM 3.3 mmol/L (3.5-5.0); TOTAL PROTEIN 7.6 g/dL (6.7-8.2)
[2022-05-07 13:39] LABS: PLATELET ESTIMATE, MANUAL NORMAL (130-450,000) (NORMAL); RBC MORPHOLOGY (MULTIPLE) NORMAL APPEARANCE (NORMAL)
[2022-05-07 13:40] LABS: DIFFERENTIAL COMMENT MANUAL=AUTO DIFF
[2022-05-07] MEDS ORDERED: HYDROmorphone 1 MG/ML CARPUJECT IM STA (13:59)
[2022-05-07 14:59] LABS: BILIRUBIN,URINE NEGATIVE (NEGATIVE); GLUCOSE, URINE (UA) NEGATIVE (NEGATIVE); KETONES,URINE (UA) TRACE mg/dL (NEGATIVE); LEUKOCYTE ESTERASE, URINE NEGATIVE (NEGATIVE); NITRITE,URINE NEGATIVE (NEGATIVE); OCCULT BLOOD,URINE TRACE-INTA (NEGATIVE); PH,URINE 6.5 PH (5.0-7.5); PROTEIN,URINE NEGATIVE (NEGATIVE); UROBILINOGEN,URINE 0.2 (NORMAL) E.U./dL (NORMAL)
[2022-05-07 15:01] LABS: CLARITY,URINE CLEAR (CLEAR)
[2022-05-07 15:26] LABS: HCG UR QUAL NEGATIVE
--- NOTE | 2022-05-07 15:35 | Ultrasound Report ---
PROCEDURE: Pelvic w/Doppler Complete INDICATIONS: R pelvic pain TECHNIQUE: Grayscale and Doppler ultrasound images of the pelvis were performed transabdominally COMPARISON: None. FINDINGS: The uterus measures 7.2 x 4.2 x 4.2 cm. The uterus is anteverted. Endometrial thickness is 5.8 mm. An IUD is seen within the endometrial canal and appears well-positioned. No nabothian cysts. Both ovaries have a normal size and appearance with less than 12 follicles. Both ovaries demonstrate normal arterial and venous flow. IMPRESSION: 1. No evidence of ovarian torsion. 2. No acute abnormality. Reviewed by: Олег Mathew on 05/07/2022 2:33 PM BILLIE Approved by: Олег Mathew on 05/07/2022 2:33 PM BILLIE Station ID: [id number]
[2022-05-07 15:40] VITALS: BP 138/101
[2022-05-07] MEDS ORDERED: KETOROLAC 60 MG/2 ML VIAL IM STA (16:14)
== END 2022-05-07 16:49 | disposition home or self-care (01) ==
LOC: ED 12:06
DX: R10.2 Pelvic and perineal pain (principal)
CPT/HCPCS: 36415; 76856; 80053; 81003; 81025; 83690; 85025; 93975; 96372; 96374; 96375; 96376; 99284; J1170; 81001; 87086

== ENCOUNTER 2022-05-29 13:45 | Emergency (ER) | payer OTHER ==
[2022-05-29 14:00] VITALS: BP 143/88
[2022-05-29 14:23] LABS: BASOPHILS % (AUTO) 0.3 %; EOSINOPHILS % (AUTO) 0.4 %; HCT - HEMATOCRIT 37.8 % (37.0-47.0); HGB - HEMOGLOBIN 12.6 g/dL (12.0-16.0); LYMPHOCYTES # (AUTO) 1.5 10^3/uL (1.5-3.5); LYMPHOCYTES % (AUTO) 20.9 %; MEAN CORPUSCULAR HEMOGLOBIN 31.7 pg (27.0-31.0); MEAN CORPUSCULAR HGB CONC 33.3 g/dL (32.0-36.0); MEAN PLATELET VOLUME 9.1 fL (7.9-10.8); MONOCYTES # (AUTO) 0.4 10^3/uL (0.0-1.0); MONOCYTES % (AUTO) 5.6 %; NEUTROPHILS # (AUTO) 5.1 10^3/uL (1.5-6.6); NEUTROPHILS % (AUTO) 72.1 %; PLT - PLATELET COUNT 304 10^3/uL (130-450); RED BLOOD COUNT 3.98 10^6/uL (4.20-5.40); RED CELL DISTRIBUTION WIDTH 12.4 % (12.0-15.0); WHITE BLOOD COUNT 7.1 x10^3/uL (4.8-10.8)
[2022-05-29 14:51] LABS: ALBUMIN 4.4 g/dL (3.2-5.5); ALBUMIN/GLOBULIN RATIO 1.3 (1.0-2.2); BILIRUBIN,TOTAL 0.7 mg/dL (0.2-1.0); CALCIUM 8.8 mg/dL (8.5-10.3); CREATININE 0.8 mg/dL (0.4-1.0); POTASSIUM 3.2 mmol/L (3.5-5.0); TOTAL PROTEIN 7.7 g/dL (6.7-8.2)
[2022-05-29] MEDS ORDERED: HYDROmorphone 1 MG/ML CARPUJECT IM STA ×2 (14:52→15:38)
[2022-05-29] MEDS ORDERED: SODIUM CHLORIDE 0.9% 1,000 ML IV STA (14:52)
--- NOTE | 2022-05-29 14:53 | ED Physician Documentation ---
History of Present Illness - Stated complaint Stated Complaint: IUD, PX IN ABDOMEN, PREG SYMP - Chief complaint Chief Complaint: Abd Pain - History obtained from History obtained from: Patient - History of Present Illness Pain level max: 8 Pain level now: 8 - Additonal information Additional information: Patient is a 31-year-old female who presents to the emergency department stating that she has a history of polycystic ovarian syndrome, endometriosis and adenomyosis. She states that she has an IUD in place. She states she feels t hat she may be because she has fatigue, breast tenderness and started vaginal bleeding. She states that she has had an ectopic in the past. She states she has had an appendectomy and cholecystectomy. She states she is not having any diarrhea but is having more frequent bowel movements than normal. She has had nausea and occasional vomiting as well. She states that she feels dehydrated "like a raisin". She states the IUD was placed in 2020, Mirena. She states that she can still feel the strings. 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: Endometriosis Psych: ADD/ADHD - Past Surgical History Past Surgical History: Yes General: Cholecystectomy, Appendectomy /CONTENT PRODUCTION SPECIALIST: section, Other - Present Medications Home Medications: Ambulatory Orders Medication Instructions Recorded Confirmed HYDROmorphone [Dilaudid] 2 mg PO Q6H #4 tablet 09/16/18 12/01/18 Hydromorphone HCl [Dilaudid] 4 mg PO Q4H PRN #7 tablet 12/28/18 Hydromorphone HCl [Dilaudid] 8 mg PO Q6H PRN 12/28/18 Benzonatate [Tessalon] 100 mg PO TID PRN #20 cap 11/29/21 Ondansetron Odt [Zofran] 4 mg TL Q6H PRN #15 tablet 11/29/21 Oxycodone HCl/Acetaminophen 1 tab PO Q6H PRN #18 tablet 11/29/21 [Percocet 5-325 mg Tablet] dexAMETHasone [Decadron] 4 mg PO DAILY #5 tablet 11/29/21 HYDROmorphone [Dilaudid] 2 mg PO BID #8 tablet 12/10/21 Ondansetron Odt [Zofran] 4 mg TL Q6H PRN #10 tablet 01/18/22 Oxycodone HCl/Acetaminophen 1 each PO Q6H PRN #10 tablet 01/18/22 [Percocet 5-325 mg Tablet] Ondansetron Odt [Zofran] 4 mg TL Q6H PRN #10 tablet 05/07/22 - Allergies Allergies/Adverse Reactions: Allergies Allergy/AdvReac Type Severity Reaction Status Date / Time cephalexin [From Keflex] Allergy Emesis Verified 05/29/22 13:56 doxycycline Allergy Emesis Verified 05/29/22 13:56 codeine AdvReac Cramps Verified 05/29/22 13:56 - Social History Does the pt smoke?: No Smoking Status: Never smoker Does the pt drink ETOH?: No Does the pt have substance abuse?: No - Immunizations Immunizations are current?: Yes - POLST Patient has POLST: No PD ED PE NORMAL - Vitals Vital signs reviewed: Yes - General General: Alert and oriented X 3, No acute distress - HEENT HEENT: Moist mucous membranes - Neck Neck: Supple, no meningeal sign - Cardiac Cardiac: RRR, Strong equal pulses - Respiratory Respiratory: No respiratory distress, Clear bilaterally - Abdomen Abdomen: Soft, Non distended, Other (TTP suprapubic without peritoneal signs.) - Back Back: No CVA TTP, No spinal TTP - Derm Derm: Warm and dry - Extremities Extremities: No edema - Neuro Neuro: Alert and oriented X 3 Results - Vitals Vitals: Vital Signs - 24 hr 05/29/22 13:56 Temperature 37.2 C Heart Rate 87 Respiratory 18 Rate Blood Pressure 143/88 H O2 Saturation 100 Oxygen O2 Source Room air - Labs Labs: Laboratory Tests 05/29/22 05/29/22 05/29/22 14:14 14:14 14:14 WBC 7.1 RBC 3.98 L Hgb 12.6 Hct 37.8 MCV 95.0 MCH 31.7 H MCHC 33.3 RDW 12.4 Plt Count 304 MPV 9.1 Neut # (Auto) 5.1 Lymph # (Auto) 1.5 [place] # (Auto) 0.4 Eos # (Auto) 0.0 Baso # (Auto) 0.0 Absolute Nucleated RBC 0.00 Nucleated RBC % 0.0 Sodium 136 Potassium 3.2 L Chloride 107 Carbon Dioxide 24 Anion Gap 5.0 L BUN 10 Creatinine 0.8 Estimated GFR (MDRD) 83 L Glucose 95 Calcium 8.8 Total Bilirubin 0.7 AST 16 ALT 12 Alkaline Phosphatase 37 L Total Protein 7.7 Albumin 4.4 Globulin 3.3 Albumin/Globulin Ratio 1.3 Lipase 45 HCG, Quant < 0.60 Urine Color Urine Clarity Urine pH Ur Specific [place] Urine Protein Urine Glucose (UA) Urine Ketones Urine Occult Blood Urine Nitrite Urine Bilirubin Urine Urobilinogen Ur Leukocyte Esterase Ur Microscopic Review Urine Culture Comments Urine HCG, Qual 05/29/22 14:51 WBC RBC Hgb Hct MCV MCH MCHC RDW Plt Count MPV Neut # (Auto) Lymph # (Auto) [place] # (Auto) Eos # (Auto) Baso # (Auto) Absolute Nucleated RBC Nucleated RBC % Sodium Potassium Chloride Carbon Dioxide Anion Gap BUN Creatinine Estimated GFR (MDRD) Glucose Calcium Total Bilirubin AST ALT Alkaline Phosphatase Total Protein Albumin Globulin Albumin/Globulin Ratio Lipase HCG, Quant Urine Color LIGHT YELLOW Urine Clarity CLEAR Urine pH 6.0 Ur Specific [place] <=1.005 Urine Protein NEGATIVE Urine Glucose (UA) NEGATIVE Urine Ketones NEGATIVE Urine Occult Blood NEGATIVE Urine Nitrite NEGATIVE Urine Bilirubin NEGATIVE Urine Urobilinogen 0.2 (NORMAL) Ur Leukocyte Esterase NEGATIVE Ur Microscopic Review NOT INDICATED Urine Culture Comments NOT INDICATED Urine HCG, Qual NEGATIVE - Rads (name of study) pelvic US Relevant Findings:: Final report received, See rad report PD Medical Decision Making - ED course Complexity details: reviewed results, re-evaluated patient, considered differential, d/w patient ED course: Patient's urine and blood hCG are negative. No significant findings on CBC. Chemistry is relatively unremarkable other than mild hypokalemia. Urinalysis does not show any acute abnormalities. Patient was given total of 3 mg of IM Dilaudid. Pelvic ultrasound shows no evidence of torsion. IUD is in the appropriate . there is reportedly a 2 cm right ovarian cyst according to the mobile lab technician, consistent with hemorrhagic cyst. We will continue supportive care and have her follow-up with her doctor. Patient has Dilaudid at home. Patient counseled regarding signs and symptoms for which I believe and urgent re-evaluation would be necessary. Patient with good understanding of and agreement to plan and is comfortable going home at this time This document was made in part using voice recognition software. While efforts are made to proofread this document, sound alike and grammatical errors may occur. Departure - Departure Disposition: 01 Home, Self Care Clinical Impression: Pelvic pain in female Ovarian cyst Qualifiers: Laterality: right Qualified Code(s): N83.201 - Unspecified ovarian cyst, right side Condition: Good Instructions: ED Cyst Ovarian Follow-Up: Maico Torres MD [Primary Care Provider] - Within 1 week Comments: Your test is negative. Your blood work does not show any acute abnormalities. Your ultrasound shows an IUD that is in place. You do have a 2 cm right-sided ovarian, likely hemorrhagic, cyst. These usually resolve on their own. Please follow-up with your doctor for further care. Return if you worsen. Discharge Date/Time: 05/29/22 15:57
[2022-05-29 15:01] LABS: BILIRUBIN,URINE NEGATIVE (NEGATIVE); GLUCOSE, URINE (UA) NEGATIVE (NEGATIVE); KETONES,URINE (UA) NEGATIVE (NEGATIVE); LEUKOCYTE ESTERASE, URINE NEGATIVE (NEGATIVE); NITRITE,URINE NEGATIVE (NEGATIVE); OCCULT BLOOD,URINE NEGATIVE (NEGATIVE); PROTEIN,URINE NEGATIVE (NEGATIVE); UROBILINOGEN,URINE 0.2 (NORMAL) E.U./dL (NORMAL)
[2022-05-29 15:02] LABS: CLARITY,URINE CLEAR (CLEAR); HCG UR QUAL NEGATIVE
--- NOTE | 2022-05-29 16:10 | Ultrasound Report ---
PROCEDURE: Pelvic w/Doppler Limited INDICATIONS: pelvic pain, R history of endometriosis TECHNIQUE: Real-time transabdominal scanning was performed of the pelvic organs, with image documentation. Dopp ler interrogation was performed of the ovaries bilaterally. COMPARISON: 05/07/2022 FINDINGS: Uterus: Uterus measures 7 x 4 x 4 cm. Estimated volume is about 66 cc. IUD is in appropriate position . Ovaries: Right ovary measures 8 cc. Left ovary measures 9 cc. Color and spectral Doppler: flows are documented Other: No pathologic free fluid. IMPRESSION: No evidence of ovarian torsion. Normal appearance of the IUD within the endometrium. Consider pelvic MRI to further evaluate for history of endometriosis related pain if clinically indic ated. Reviewed by: Francis Frey MD on 05/29/2022 4:08 PM PDT Approved by: Francis Frey MD on 05/29/2022 4:08 PM PDT Station ID: [id number]
== END 2022-05-29 15:57 | disposition home or self-care (01) ==
LOC: ED 13:45
DX: N83.201 Unspecified ovarian cyst, right side (principal)
CPT/HCPCS: 36415; 76856; 80053; 81003; 81025; 83690; 84702; 85025; 93976; 96372; 99283; 99284; J1170; 81001; 87086

== ENCOUNTER 2022-07-17 11:35 | Day surgery (SDC) | payer OTHER ==
[~2022-07-17 11:35] MED LIST: ACETAMINOPHEN 500 MG TABLET PO ONE; CELECOXIB 100 MG CAPSULE PO ONE; GABAPENTIN 400 MG CAPSULE ONE; ceFAZolin 2 GM VIAL ONE; metroNIDAZOLE 500 MG/100 ML 500 MG/100 ML BAG ONE
[2022-07-17] MEDS ORDERED: LACTATED RINGERS 1,000 ML IV ONE (11:40)
[2022-07-17 11:57] LABS: HCG UR QUAL NEGATIVE
--- NOTE | 2022-07-17 13:33 | ANESTHESIA ---
Pre-Anesthesia VS, & Labs - Diagnosis prolapsed hemorrhoids - Procedure hemrroidedectomy Vital Signs: Temp Pulse Resp BP Pulse Ox O2 Flow Rate 36.9 C 84 16 148/94 H 98 07/17/22 11:52 07/17/22 11:52 07/17/22 11:52 07/17/22 11:52 07/17/22 11:52 Height: 5 ft 4 in Weight (kg): 79 kg Body Mass Index: 29.9 BMI Classification: Overweight - NPO >8 hours - Is Patient ?: No Home Medications and Allergies Home Medications: Ambulatory Orders Dextroamphetamine/Amphetamine [Adderall 15 mg Tablet] 15 mg PO DAILY 07/13/22 HYDROmorphone [Dilaudid] 2 mg PO Q4H PRN 07/13/22 Rizatriptan Benzoate [Rizatriptan] 10 mg PO PRN PRN 07/13/22 Dextroamphetamine/Amphetamine [Adderall 15 mg Tablet] 15 mg PO DAILY 07/13/22 HYDROmorphone [Dilaudid] 2 mg PO Q4H PRN 07/13/22 Rizatriptan Benzoate [Rizatriptan] 10 mg PO PRN PRN 07/13/22 Allergies/Adverse Reactions: Allergies Allergy/AdvReac Type Severity Reaction Status Date / Time cephalexin [From Keflex] Allergy Emesis Verified 05/29/22 13:56 doxycycline Allergy Emesis Verified 05/29/22 13:56 codeine AdvReac Itching Verified 07/13/22 12:38 morphine AdvReac Itching Verified 07/13/22 12:38 Anes History & Medical History - Anesthetic History Anesthesia Complications: reports: No previous complications Family history of Anesthesia Complications: Denies Family history of Malignant Hyperthermia: Denies - Medical History Cardiovascular: reports: None Pulmonary: reports: None Gastrointestinal: reports: None Urinary: reports: Other Musculoskeletal: reports: Chronic back pain Endocrine/Autoimmune: reports: None Skin: reports: Eczema Smoking Status: Never smoker - Surgical History General: reports: Cholecystectomy, Appendectomy, Colonoscopy Gynecologic: reports: section, Other Exam General: Alert, Oriented x3, Cooperative Dental: WNL Mouth Openin Fingerbreadth Neck Mobility: Normal Mallampati classification: II Thyromental Distance: 4-6 cm Respiratory: Lungs clear Cardiovascular: Regular rate Plan Anesthesia Type: General Consent for Procedure(s) Verified and Reviewed: Yes Code Status: Attempt Resuscitation ASA classification: 2-Mild systemic disease Is this case an emergency?: No
[2022-07-17] MEDS ORDERED: MORPHINE 2 MG/ML CARPUJECT IVP PRN (13:36)
[2022-07-17] MEDS ORDERED: fentaNYL 100 MCG/2 ML VIAL IVP PRN (13:36)
[2022-07-17] MEDS ORDERED: METOCLOPRAMIDE 10 MG/2 ML VIAL IVP PRN (13:36)
[2022-07-17] MEDS ORDERED: ePHEDrine 50 MG/ML VIAL IVP PRN (13:36)
[2022-07-17] MEDS ORDERED: NALOXONE 0.4 MG/ML VIAL IVP PRN (13:36)
[2022-07-17] MEDS ORDERED: ONDANSETRON 4 MG/2 ML VIAL IVP PRN ×2 (13:36→14:51)
[2022-07-17] MEDS ORDERED: ATROPINE ABBOJECT 1 MG/10 ML SYRINGE IVP PRN (13:36)
[2022-07-17] MEDS ORDERED: DEXAMETHASONE 4 MG/ML VIAL ONE (13:50)
[2022-07-17] MEDS ORDERED: LIDOCAINE-PF 2% 10 ML AMP SUBQ ONE (13:50)
[2022-07-17] MEDS ORDERED: PROPOFOL 200 MG/20 ML VIAL IVP ONE (13:50)
[2022-07-17] MEDS ORDERED: ONDANSETRON 4 MG/2 ML VIAL ONE (13:50)
[2022-07-17] MEDS ORDERED: diphenhydrAMINE INJ 50 MG/ML VIAL ONE (13:50)
[2022-07-17] MEDS ORDERED: LACTATED RINGERS 1,000 ML IV SCH (14:00)
[2022-07-17] MEDS ORDERED: LIDOCAINE OINTMENT 5% 35.44 GM TUBE ONE ×2 (14:03→14:39)
[2022-07-17] MEDS ORDERED: LIDOCAINE JELLY 2% 6 ML JEL.PF.APP ONE (14:03)
[2022-07-17] MEDS ORDERED: LIDOCAINE MPF 2%-EPI 1:200000 20 ML VIAL ONE (14:03)
[2022-07-17] MEDS ORDERED: BUPIVACAINE 0.25% PF 30 ML VIAL ONE (14:03)
[2022-07-17] MEDS ORDERED: LIDOCAINE MPF 2%-EPI 1:200000 20 ML VIAL SUBQ ONE (14:08)
[2022-07-17] MEDS ORDERED: BUPIVACAINE 0.25% PF 30 ML VIAL SUBQ ONE (14:08)
[2022-07-17] MEDS ORDERED: MIDAZOLAM 2 MG/2 ML VIAL ONE (14:15)
[2022-07-17] MEDS ORDERED: fentaNYL 100 MCG/2 ML VIAL ONE (14:15)
[2022-07-17] MEDS ORDERED: LIDOCAINE OINTMENT 5% 35.44 GM TUBE TOP ONE (14:47)
--- NOTE | 2022-07-17 14:48 | OPERATIVE REPORT ---
Operative Report - General Procedure Date: 07/17/22 Planned Procedure: Exam under anesthesia, complex hemorrhoidectomy Pre-Op Diagnosis: Internal (grade 3) and external (thrombosed) hemorrhoids Procedure Performed: Exam under anesthesia, complex hemorrhoidectomy Post Op Diagnosis: Internal (grade 3) and external (thrombosed) hemorrhoids - Procedure Note Primary Surgeon: Dr. Coco Magallanes Anesthesia Provider: Katerin Benitez CRNA Anesthesia Technique: General LMA, Local, Regional block Pathology: none Estimated Blood Loss (mL): 2 Indications: Patient has struggled with hemorrhoids for many years. Recently, she had thrombosed hemorrhoids, and she frequently notes prolapsed internal hemorrhoids. The patient was seen and evaluated in clinic. She has tried conservative measures without significant improvement and desires hemorrhoidectomy. We discussed the risks, benefits, and alternatives of hemorrhoidectomy including bleeding, infection, damage to surrounding structures, narrowing of the anal canal, and recurrent hemorrhoids. The patient voiced understanding, her questions were answered, and she wished to proceed. PAR-Q. A consent was signed by the patient prior to surgery. Findings: 1. internal (grade 3) and external (thrombosed) hemorrhoids Complications: none - Other Other Information/Narrative: The patient was brought to the operative room and placed in the supine position. Preop antibiotics and ERAS medications were given. Anesthesia was induced to the appropriate level of consciousness. The patient was then placed in lithotomy position and prepped and draped in the usual sterile fashion. A preop surgical timeout was performed. Next, a clemente field block and bilateral pudendal nerve block was performed using 0.25% Marcaine with epinephrine mixed 50-50 with 2% lidocaine plain. A total of 50 mL of local were used. Then, a well-lubricated, small Hill-Henning retractor was placed. The patient was noted to have internal and external hemorrhoids. Her internal hemorrhoids were grade 3, most prominent in the right posterior and left lateral positions. She had an external thrombosed hemorrhoid in the anterior midline and the right posterior position. Complex hemorrhoidectomy was undertaken in the right posterior and left lateral positions. The thrombosed hemorrhoid in the anterior midline was also removed. All hemorrhoid tissue was excised using a hand-held LigaSure device. Minimal blood loss was noted. Hemostasis was confirmed. Additional local was injected into the hemorrhoidectomy sites. A sterile dressing was placed. The patient tolerated the procedure well and there were no complications. She was transferred to the recovery room in stable condition.
[2022-07-17] MEDS ORDERED: ACETAMINOPHEN 500 MG TABLET PO PRN (14:51)
[2022-07-17] MEDS ORDERED: HYDROmorphone 0.5 MG/0.5 ML SYRINGE IVP PRN (14:51)
[2022-07-17] MEDS ORDERED: oxyCODONE 5 MG TABLET PO PRN (14:51)
[2022-07-17] MEDS ORDERED: LACTATED RINGERS 300 ML IV ONE (15:00)
[2022-07-17] MEDS ORDERED: HYDROmorphone 0.5 MG/0.5 ML SYRINGE ONE ×2 (15:35→15:46)
--- NOTE | 2022-07-17 15:42 | ANESTHESIA POST OP EVALUATION ---
Anesthesia Post Eval - Post Anesthesia Eval Vitals: Last Vital Signs Temp 36.5 C 07/17/22 15:35 Pulse 83 07/17/22 15:35 Resp 13 07/17/22 15:35 BP 130/90 H 07/17/22 15:35 Pulse Ox 100 07/17/22 15:35 O2 Flow Rate CV Function Including HR & BP: Stable Pain Control: Satisfactory Nausea & Vomiting: Negative Mental Status: Baseline Respiratory Status: Airway Patent Hydration Status: Satisfactory Anesthesia Complications: None
[2022-07-17] MEDS: HYDROmorphone 0.5 MG/0.5 ML SYRINGE IVP PRN ×2 (15:43→15:49)
[2022-07-17] MEDS ORDERED: oxyCODONE 5 MG TABLET ONE (16:10)
[2022-07-17 16:29] VITALS: BP 139/97
== END 2022-07-17 11:36 | disposition home or self-care (01) ==
LOC: SDS 11:35
PROVIDERS: ATTEND Surgery
DX: K64.5 Perianal venous thrombosis (principal); K64.2 Third degree hemorrhoids; Z32.02 Encounter for pregnancy test, result negative
CPT/HCPCS: 46260; 81025; A9270; J1170; J1200; J7120

== ENCOUNTER 2022-07-31 09:46 | Emergency (ER) | payer OTHER ==
[2022-07-31] MEDS ORDERED: SODIUM CHLORIDE 0.9% 1,000 ML IV STA (10:16)
[2022-07-31 10:38] LABS: BASOPHILS % (AUTO) 0.2 %; EOSINOPHILS % (AUTO) 0.3 %; HCT - HEMATOCRIT 38.6 % (37.0-47.0); LYMPHOCYTES # (AUTO) 0.8 10^3/uL (1.5-3.5); LYMPHOCYTES % (AUTO) 9.2 %; MEAN CORPUSCULAR HEMOGLOBIN 31.7 pg (27.0-31.0); MEAN CORPUSCULAR HGB CONC 33.7 g/dL (32.0-36.0); MEAN CORPUSCULAR VOLUME 94.1 fL (81.0-99.0); MONOCYTES # (AUTO) 0.3 10^3/uL (0.0-1.0); MONOCYTES % (AUTO) 3.2 %; NEUTROPHILS # (AUTO) 7.9 10^3/uL (1.5-6.6); NEUTROPHILS % (AUTO) 86.3 %; PLT - PLATELET COUNT 328 10^3/uL (130-450); RED CELL DISTRIBUTION WIDTH 11.9 % (12.0-15.0); WHITE BLOOD COUNT 9.2 x10^3/uL (4.8-10.8)
[2022-07-31 10:50] LABS: ALBUMIN 4.5 g/dL (3.2-5.5); ALBUMIN/GLOBULIN RATIO 1.2 (1.0-2.2); BILIRUBIN,TOTAL 0.3 mg/dL (0.2-1.0); CALCIUM 9.7 mg/dL (8.5-10.3); CREATININE 0.8 mg/dL (0.4-1.0); POTASSIUM 4.1 mmol/L (3.5-5.0); TOTAL PROTEIN 8.3 g/dL (6.7-8.2)
[2022-07-31] MEDS ORDERED: HYDROmorphone 1 MG/ML CARPUJECT IM STA ×3 (10:54→13:09)
[2022-07-31 12:35] LABS: BILIRUBIN,URINE NEGATIVE (NEGATIVE); CLARITY,URINE CLEAR (CLEAR); GLUCOSE, URINE (UA) NEGATIVE (NEGATIVE); KETONES,URINE (UA) NEGATIVE (NEGATIVE); LEUKOCYTE ESTERASE, URINE NEGATIVE (NEGATIVE); NITRITE,URINE NEGATIVE (NEGATIVE); OCCULT BLOOD,URINE NEGATIVE (NEGATIVE); PROTEIN,URINE NEGATIVE (NEGATIVE); UROBILINOGEN,URINE 0.2 (NORMAL) E.U./dL (NORMAL)
--- NOTE | 2022-07-31 13:12 | ED Physician Documentation ---
PD HPI GI BLEED - Stated complaint Stated Complaint: FEMALE GI/ - Chief complaint Chief Complaint: Abd Pain - History obtained from History obtained from: Patient - Additional information Additional information: Pt comes to the ED with CC of ongoing bleeding and pain since her hemorrhoidectomy [address] Magall[address]. The pt states she has been doing sitz baths, and taking her Dilaudid PRN, but has been having a hard time getting the pain under control. The pt denies any fevers. She states she mainly notices the blood when she has a BM, but also notices more comes out when she sits down. Pt states she sometimes notices mucus, too. No purulent d/c that she has noticed. Pt has discussed the sx with her surgeon already, and has been told to continue doing baths and taking the meds prn. Pt has a h/o chronic pain from endometriosis, as well as interstitial cystitis, and has previously been on both fentanyl and Dilaudid. Pt was able to go down to just prn Dilaudid after surgery, but states that it was very difficult. She states she is very careful with her pain meds now, but probably still has a higher tolerance for them. The pt has noticed some suprapubic pain. She has been on stool softeners, and has not had constipation, but for the past 2 days, she's had runny diarrhea, which she had not before. No other complaints at this time. 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: Endometriosis : Other HEENT: Chronic vision loss Psych: ADD/ADHD, Post traumatic stress disorder Musculoskeletal: Chronic back pain Derm: Eczema - Past Surgical History Past Surgical History: Yes General: Cholecystectomy, Appendectomy, Colonoscopy /SALT GRINDER: section, Other - Present Medications Home Medications: Ambulatory Orders Medication Instructions Recorded Confirmed Ondansetron Odt [Zofran] 4 mg TL Q6H PRN #10 tablet 05/07/22 07/17/22 Dextroamphetamine/Amphetamine 15 mg PO DAILY 07/13/22 07/17/22 [Adderall 15 mg Tablet] HYDROmorphone [Dilaudid] 2 mg PO Q4H PRN 07/13/22 07/17/22 Rizatriptan Benzoate [Rizatriptan] 10 mg PO PRN PRN 07/13/22 07/17/22 oxyCODONE [Roxicodone] 5 mg PO Q4H PRN #15 tablet 07/17/22 - Allergies Allergies/Adverse Reactions: Allergies Allergy/AdvReac Type Severity Reaction Status Date / Time cephalexin [From Keflex] Allergy Emesis Verified 07/31/22 09:53 doxycycline Allergy Emesis Verified 07/31/22 09:53 codeine AdvReac Itching Verified 07/31/22 09:53 morphine AdvReac Itching Verified 07/31/22 09:53 - Social History Does the pt smoke?: No Smoking Status: Never smoker Does the pt drink ETOH?: No Does the pt have substance abuse?: No - Immunizations Immunizations are current?: Yes - POLST Patient has POLST: No PD ED PE NORMAL - Vitals Vital signs reviewed: Yes - General General: Alert and oriented X 3, No acute distress - HEENT HEENT: Atraumatic, PERRL, EOMI, Moist mucous membranes - Neck Neck: Supple, no meningeal sign - Cardiac Cardiac: RRR, No murmur - Respiratory Respiratory: No respiratory distress, Clear bilaterally - Abdomen Abdomen: Soft, Non distended, Other (moderate suprapubic tenderness, no rebound or guarding.) - Rectal Rectal: Other (Normal external exam. Pain on digital rectal exam. Mild swelling, no mass. Slight blood-tinged mucus on glove.) - Derm Derm: Warm and dry - Extremities Extremities: No deformity - Neuro Neuro: Alert and oriented X 3 - Psych Psych: Normal mood, Normal affect Results - Vitals Vitals: Vital Signs - 24 hr 07/31/22 07/31/22 07/31/22 09:49 11:11 13:26 Temperature 36.1 C L Heart Rate 102 H 70 73 Respiratory 16 20 19 Rate Blood Pressure 133/83 H 143/92 H 159/112 H O2 Saturation 100 100 100 Oxygen O2 Source Room air - Labs Labs: Laboratory Tests 07/31/22 07/31/22 07/31/22 10:28 10:28 12:20 WBC 9.2 RBC 4.10 L Hgb 13.0 Hct 38.6 MCV 94.1 MCH 31.7 H MCHC 33.7 RDW 11.9 L Plt Count 328 MPV 9.0 Neut # (Auto) 7.9 H Lymph # (Auto) 0.8 L [place] # (Auto) 0.3 Eos # (Auto) 0.0 Baso # (Auto) 0.0 Absolute Nucleated RBC 0.00 Nucleated RBC % 0.0 Sodium 139 Potassium 4.1 Chloride 104 Carbon Dioxide 28 Anion Gap 7.0 BUN 13 Creatinine 0.8 Estimated GFR (MDRD) 83 L Glucose 112 H Calcium 9.7 Total Bilirubin 0.3 AST 16 ALT 17 Alkaline Phosphatase 54 Total Protein 8.3 H Albumin 4.5 Globulin 3.8 Albumin/Globulin Ratio 1.2 Lipase 43 Urine Color LIGHT YELLOW Urine Clarity CLEAR Urine pH 7.0 Ur Specific [place] <=1.005 Urine Protein NEGATIVE Urine Glucose (UA) NEGATIVE Urine Ketones NEGATIVE Urine Occult Blood NEGATIVE Urine Nitrite NEGATIVE Urine Bilirubin NEGATIVE Urine Urobilinogen 0.2 (NORMAL) Ur Leukocyte Esterase NEGATIVE Ur Microscopic Review NOT INDICATED Urine Culture Comments NOT INDICATED PD Medical Decision Making - ED course Complexity details: reviewed results, re-evaluated patient, considered differential, d/w patient, d/w [facility] consultant ED course: THe pt was treated symptomatically with Dilaudid and evaluated with CBC, which showed no anemia or leukocytosis. I discussed the case with the pt's surgeon, Dr. Magallanes, who stated that the pt is within the expected post-op experience for this kind of procedure. To complicate matters, she has a history of tolerance to and use of very heavy narcotics, which Dr. Magallanes is concerned is affecting the pt's post-operative course, as well. At this time, she does not recommend CT, as it is unlikely to yield helpful information. She states that the pt may keep her post-op appointment on the , and has offered to see the pt in the ED if it is helpful. I have discussed all of this with the pt, who expresses understanding, and does not feel she needs to talk directly to the surgeon at this time. We have discussed symptomatic management and the usual indications for return. Departure - Departure Disposition: 01 Home, Self Care Clinical Impression: Post-op pain Post-op bleeding Qualifiers: Surgical complication system/body Area: digestive system Procedure type: digestive system Qualified Code(s): K91.840 - Postprocedural hemorrhage of a digestive system organ or structure following a digestive system procedure Condition: Stable Instructions: ED Chronic Pain Management, ED Post Op Pain, ED Hematochezia Stable Comments: Your blood work looks good today. Your case has been discussed with Dr. Magallanes, who feels that your symptoms are normal for the surgery you have just had. She would like you to keep taking sitz baths and continue to work with Dr. Torres on pain management. Please continue your plans to follow-up with Dr. Magallanes as scheduled. Discharge Date/Time: 07/31/22 13:40
[2022-07-31 13:27] VITALS: BP 159/112
== END 2022-07-31 13:40 | disposition home or self-care (01) ==
LOC: ED 09:46
DX: K91.840 Postprocedural hemorrhage of a digestive system organ or structure following a digestive system procedure (principal); G89.18 Other acute postprocedural pain; Z79.899 Other long term (current) drug therapy
CPT/HCPCS: 36415; 80053; 81003; 83690; 85025; 96372; 99284; J1170; 81001; 87086

== ENCOUNTER 2022-08-11 17:15 | Outpatient (CLI) | payer OTHER | END 2022-08-11 17:30 | disposition home or self-care (01) | LOC: LAB.N 17:15 | PROVIDERS: ATTEND Family Medicine | DX: L02.91 Cutaneous abscess, unspecified (principal) | CPT/HCPCS: 87070; 87181; 87205 ==

== ENCOUNTER 2022-09-05 13:20 | Emergency (ER) | payer OTHER ==
[2022-09-05] MEDS ORDERED: ONDANSETRON 4 MG/2 ML VIAL IVP STA (14:13)
[2022-09-05] MEDS ORDERED: SODIUM CHLORIDE 0.9% 1,000 ML IV STA (14:13)
[2022-09-05] MEDS ORDERED: HYDROmorphone 1 MG/ML CARPUJECT IVP STA ×3 (14:15→16:10)
--- NOTE | 2022-09-05 14:16 | ED Physician Documentation ---
History of Present Illness - Stated complaint Stated Complaint: ABD PX/N/V CHILLS - Chief complaint Chief Complaint: Abd Pain - Additonal information Additional information: 31-year-old female who has a history of endometriosis, previous appendectomy as well as x2 presents to the emergency department for evaluation of 2 days difficulty emptying her Bladder as well as right lower quadrant abdominal pain. States that the pain is sharp and sometimes radiates up her flank. She got severe pain this morning at work and vomited and then fainted. She denies any dysuria but states that she does not feel like she empties her bladder and feels that the lower abdomen is bloated as though she was 6 months . Patient states that she took a course of Bactrim for staph skin infection several weeks ago and finished the antibiotics now about 10 days ago. With her history of endometriosis she does report that she has had lesions that have caused Ureter obstruction. She currently takes indomethacin for control of the endometriotic pain however about 2 weeks of the month she does take Dilaudid when she is ovulating as well as when she is on her cycle. She is attempting to get referred to an OB for longer-term evaluation and management of her endometritis. Review of Systems Constitutional: denies: Fever, Chills Ears: reports: Reviewed and negative Nose: reports: Reviewed and negative Cardiac: reports: Reviewed and negative Respiratory: reports: Reviewed and negative GI: reports: Nausea, Vomiting : reports: Unable to Void. denies: Dysuria, Frequency, Hematuria Skin: reports: Reviewed and negative Musculoskeletal: reports: Reviewed and negative Neurologic: reports: Reviewed and negative PD PAST MEDICAL HISTORY - Past Medical History Cardiovascular: None Respiratory: None Endocrine/Autoimmune: None GI: None RECORDER GRAVITY PROSPECTING: Endometriosis : Other HEENT: Chronic vision loss Psych: ADD/ADHD, Post traumatic stress disorder Musculoskeletal: Chronic back pain Derm: Eczema - Past Surgical History Past Surgical History: Yes General: Cholecystectomy, Appendectomy, Colonoscopy /RECORDER GRAVITY PROSPECTING: section, Other - Present Medications Home Medications: Ambulatory Orders Medication Instructions Recorded Confirmed Ondansetron Odt [Zofran] 4 mg TL Q6H PRN #10 tablet 05/07/22 07/17/22 Dextroamphetamine/Amphetamine 15 mg PO DAILY 07/13/22 07/17/22 [Adderall 15 mg Tablet] HYDROmorphone [Dilaudid] 2 mg PO Q4H PRN 05/18/23 05/22/23 Rizatriptan Benzoate [Rizatriptan] 10 mg PO PRN PRN 07/13/22 07/17/22 oxyCODONE [Roxicodone] 5 mg PO Q4H PRN #15 tablet 07/17/22 - Allergies Allergies/Adverse Reactions: Allergies Allergy/AdvReac Type Severity Reaction Status Date / Time cephalexin [From Keflex] Allergy Emesis Verified 09/05/22 13:29 doxycycline Allergy Emesis Verified 09/05/22 13:29 codeine AdvReac Itching Verified 09/05/22 13:29 morphine AdvReac Itching Verified 09/05/22 13:29 - Social History Does the pt smoke?: No Smoking Status: Never smoker Does the pt drink ETOH?: No Does the pt have substance abuse?: No - Immunizations Immunizations are current?: Yes - POLST Patient has POLST: No PD ED PE NORMAL - General General: Alert and oriented X 3, Well developed/nourished. No: No acute distres s (Appears nauseated) - HEENT HEENT: Atraumatic - Neck Neck: Supple, no meningeal sign, No adenopathy - Cardiac Cardiac: RRR, No murmur - Respiratory Respiratory: No respiratory distress, Clear bilaterally - Abdomen Abdomen: Normal bowel sounds, Soft. No: Non tender (Exquisitely tender in the right lower quadrant of the abdomen. There is some associated flank and right CVA tenderness.) - Back Back: No spinal TTP. No: No CVA TTP (Right) - Derm Derm: Normal color, Warm and dry - Extremities Extremities: No deformity - Neuro Neuro: Alert and oriented X 3 Eye Opening: Spontaneous Motor: Obeys Commands Verbal: Oriented GCS Score: 15 Results - Vitals Vitals: Vital Signs - 24 hr 09/05/22 09/05/22 13:26 13:29 Temperature 37.3 C 37.3 C Heart Rate 73 73 Respiratory 18 14 Rate Blood Pressure 138/89 H 138/89 H O2 Saturation 99 99 Oxygen O2 Source Room air - Labs Labs: Laboratory Tests 09/05/22 09/05/22 09/05/22 14:10 14:23 14:23 WBC 6.4 RBC 3.74 L Hgb 11.8 L Hct 35.0 L MCV 93.6 MCH 31.6 H MCHC 33.7 RDW 12.3 Plt Count 239 MPV 9.3 Neut # (Auto) 4.7 Lymph # (Auto) 1.3 L [place] # (Auto) 0.4 Eos # (Auto) 0.1 Baso # (Auto) 0.0 Absolute Nucleated RBC 0.00 Nucleated RBC % 0.0 Sodium 138 Potassium 3.3 L Chloride 105 Carbon Dioxide 26 Anion Gap 7.0 BUN 13 Creatinine 0.8 Estimated GFR (MDRD) 83 L Glucose 98 Calcium 9.0 Total Bilirubin 0.7 AST 15 ALT 12 Alkaline Phosphatase 38 L Total Protein 7.8 Albumin 4.5 Globulin 3.3 Albumin/Globulin Ratio 1.4 Lipase 38 Urine Color YELLOW Urine Clarity CLEAR Urine pH 5.5 Ur Specific [place] >=1.030 H Urine Protein NEGATIVE Urine Glucose (UA) NEGATIVE Urine Ketones NEGATIVE Urine Occult Blood NEGATIVE Urine Nitrite NEGATIVE Urine Bilirubin NEGATIVE Urine Urobilinogen 0.2 (NORMAL) Ur Leukocyte Esterase NEGATIVE Ur Microscopic Review NOT INDICATED Urine Culture Comments NOT INDICATED Urine HCG, Qual NEGATIVE - Rads (name of study) CT abd Relevant Findings:: Final report received (Questionable a sending colon and transverse colon wall thickening. Finding concerning for low-grade colitis versus underdistention. No obstructing renal stones or hydronephrosis. Normal- appearing urinary bladder.) PD Medical Decision Making - ED course Complexity details: reviewed results, re-evaluated patient, d/w patient ED course: 31-year-old female presents emergency department for evaluation of several days right lower quadrant abdominal pain. She also has a lot of bloating. She feels like she cannot fully empty her bladder. Past medical history is most signifi cant for endometrial-itis, previous x2, appendectomy. 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 Here in the emergency department I did obtain a CBC, electrolytes and urinalysis. Per my interpretation there are no acute worrisome findings suggest infection leukocytosis or worrisome electrolyte abnormality. On exam however the patient was quite tender especially in the right lower quadrant and flank. Subsequently a CT of the abdomen was obtained with contrast which showed some colitis and low-grade colon wall thickening of the a sending transverse and possibly descending colon. Patient reports that she has been having soft stools though no eron diarrhea. When I discussed with her the findings of colitis she wonders if this could be related to the antibiotics she finished about 10 days ago for her skin infection. I have lower suspicion for C. difficile colitis as she has no fever, white count or watery stools. Patient is also unable to produce a stool sample here in the ER. Pain control has been difficult for the patient to achieve in the emergency department. Historically at home she takes 2 mg of Dilaudid every 4-6 hours at least 2 weeks a month when she is ovulating and on her menstrual cycle. As such I suspect she has a high tolerance to opioids. I did give her 3 separate injections of Dilaudid 1 mg each with really no relief of pain. Subsequently she requested an intramuscular injection which she feels will last longer and I acquiesced to this. I discussed the labs and CT imaging findings with the patient. We discussed various treatment options and at this point we will give her a single dose of oral Decadron to help with inflammation. I am advising her to have a clear liquid diet for 24 hours then advance to a brat. She already has Dilaudid at home for analgesia. I discussed with her if the symptoms were not improving, she developed watery diarrheas, fever or had bloody stool she should return immediately to the ER. She may benefit from referral to GI for a colonoscopy. Departure - Departure Disposition: 01 Home, Self Care Clinical Impression: Colitis Condition: Stable Record reviewed to determine appropriate education?: Yes Comments: Marbella you are seen today in the emergency department because for several days you have bloating, soft stools right lower quadrant abdominal pain. You do have a history of endometrial-itis as well as previous appendectomy and hydronephrosis. Your labs today in the emergency department were essentially normal without any worrisome findings to suggest high white count or electrolyte abnormality. Your urine showed no signs of infection. Your bladder scan showed a residual volume of about 250 mL which is appropriate and not consistent with obstruction. The CT of your abdomen showed no findings to suggest abscess formation, gallstones, kidney stones or bowel obstruction. However it does suggest colitis or inflammation of the a sending transverse and descending colon. This may be related to your recent antibiotic use. As discussed I do not think that you have C. difficile colitis as you do not have fever, high white count or watery stools. If any of these develop you do need to return immediately to the ER. In order to treat your symptoms we gave you several doses of Dilaudid today which did not seem to help though we did finally give you a single 1 mg dose of Dilaudid in the muscle. You can continue to take your Dilaudid at home. We also gave you a single dose of Decadron orally today in the emergency department which I hope will help with pain and inflammation over the next 48 to 72 hours. At home I would like you to do a clear liquid diet for the next 24 hours. If pain and symptoms are improving then you can advance to a brat diet. Return immediately to the ER if you find that you are having worsening symptoms black or bloody stools, fevers or any other emergent symptoms
[2022-09-05 14:22] LABS: BILIRUBIN,URINE NEGATIVE (NEGATIVE); GLUCOSE, URINE (UA) NEGATIVE (NEGATIVE); KETONES,URINE (UA) NEGATIVE (NEGATIVE); LEUKOCYTE ESTERASE, URINE NEGATIVE (NEGATIVE); NITRITE,URINE NEGATIVE (NEGATIVE); OCCULT BLOOD,URINE NEGATIVE (NEGATIVE); PH,URINE 5.5 PH (5.0-7.5); PROTEIN,URINE NEGATIVE (NEGATIVE); UROBILINOGEN,URINE 0.2 (NORMAL) E.U./dL (NORMAL)
[2022-09-05 14:23] LABS: CLARITY,URINE CLEAR (CLEAR)
[2022-09-05 14:24] LABS: HCG UR QUAL NEGATIVE
[2022-09-05 14:33] LABS: BASOPHILS % (AUTO) 0.6 %; EOSINOPHILS # (AUTO) 0.1 10^3/uL (0.0-0.7); EOSINOPHILS % (AUTO) 0.8 %; HGB - HEMOGLOBIN 11.8 g/dL (12.0-16.0); LYMPHOCYTES # (AUTO) 1.3 10^3/uL (1.5-3.5); LYMPHOCYTES % (AUTO) 19.4 %; MEAN CORPUSCULAR HEMOGLOBIN 31.6 pg (27.0-31.0); MEAN CORPUSCULAR HGB CONC 33.7 g/dL (32.0-36.0); MEAN CORPUSCULAR VOLUME 93.6 fL (81.0-99.0); MEAN PLATELET VOLUME 9.3 fL (7.9-10.8); MONOCYTES # (AUTO) 0.4 10^3/uL (0.0-1.0); MONOCYTES % (AUTO) 6.2 %; NEUTROPHILS # (AUTO) 4.7 10^3/uL (1.5-6.6); NEUTROPHILS % (AUTO) 72.2 %; PLT - PLATELET COUNT 239 10^3/uL (130-450); RED BLOOD COUNT 3.74 10^6/uL (4.20-5.40); RED CELL DISTRIBUTION WIDTH 12.3 % (12.0-15.0); WHITE BLOOD COUNT 6.4 x10^3/uL (4.8-10.8)
--- OUTSIDE RECORDS SUMMARY | 2022-09-05 14:35 | EXTERNAL MEDICAL SUMMARY RPT | Continuity of Care Document ---
Author Name Unknown Address [address] [place] [address] Phone Organization [facility] Address [address] [place] [id number] Phone Care Team Providers Care Kiln Operator Name Role Phone Kiara Shanks Unavailable Unavailable Allergies and Intolerances date description facility type (no date) cephalexin [facility] (unknown) (no date) codeine [facility] (unknown) (no date) doxycycline [facility] (unknown) Problems date description facility 2022-06-26 00:00 Endometriosis of uterus [facility] 2022-06-26 00:00 Pain in pelvis [facility] Procedures date description facility 2022-06-26 00:00 Complete ultrasound of pelvis [facility] 2022-06-26 00:00 CT abdomen pelvis w [facility] Results/Labs test date author facility value unit interpretation Result panel 1 (unknown) (no date) (unknown) [facility] (no value) (units unknown) (unknown) Result panel 2 (unknown) (no date) (unknown) [facility] (no value) (units unknown) (unknown) Result panel 3 (unknown) (no date) (unknown) [facility] (no value) (units unknown) (unknown) Result panel 4 (unknown) (no date) (unknown) [facility] (no value) (units unknown) (unknown) Result panel 5 (unknown) (no date) (unknown) [facility] (no value) (units unknown) (unknown) Result panel 6 (unknown) (no date) (unknown) [facility] (no value) (units unknown) (unknown) Result panel 7 (unknown) (no date) (unknown) [facility] (no value) (units unknown) (unknown) Result panel 8 (unknown) (no date) (unknown) [facility] (no value) (units unknown) (unknown) Result panel 9 (unknown) (no date) (unknown) [facility] (no value) (units unknown) (unknown) Result panel 10 (unknown) (no date) (unknown) [facility] (no value) (units unknown) (unknown) Result panel 11 (unknown) (no date) (unknown) [facility] (no value) (units unknown) (unknown) Result panel 12 (unknown) (no date) (unknown) [facility] (no value) (units unknown) (unknown) Result panel 13 (unknown) (no date) (unknown) [facility] (no value) (units unknown) (unknown) Result panel 14 (unknown) (no date) (unknown) [facility] (no value) (units unknown) (unknown) Result panel 15 (unknown) (no date) (unknown) [facility] (no value) (units unknown) (unknown) Result panel 16 (unknown) (no date) (unknown) [facility] (no value) (units unknown) (unknown) Result panel 17 (unknown) (no date) (unknown) [facility] (no value) (units unknown) (unknown) Result panel 18 (unknown) (no date) (unknown) [facility] (no value) (units unknown) (unknown) Result panel 19 (unknown) (no date) (unknown) [facility] (no value) (units unknown) (unknown) Result panel 20 (unknown) (no date) (unknown) [facility] (no value) (units unknown) (unknown) Result panel 21 (unknown) (no date) (unknown) [facility] (no value) (units unknown) (unknown) Result panel 22 (unknown) (no date) (unknown) [facility] (no value) (units unknown) (unknown) Result panel 23 (unknown) (no date) (unknown) [facility] (no value) (units unknown) (unknown) Result panel 24 (unknown) (no date) (unknown) [facility] (no value) (units unknown) (unknown) Result panel 25 (unknown) (no date) (unknown) [facility] (no value) (units unknown) (unknown) Result panel 26 (unknown) (no date) (unknown) [facility] (no value) (units unknown) (unknown) Result panel 27 (unknown) (no date) (unknown) [facility] (no value) (units unknown) (unknown) Result panel 28 (unknown) (no date) (unknown) [facility] (no value) (units unknown) (unknown) Result panel 29 (unknown) (no date) (unknown) [facility] (no value) (units unknown) (unknown) Result panel 30 (unknown) (no date) (unknown) [facility] (no value) (units unknown) (unknown) Result panel 31 (unknown) (no date) (unknown) [facility] (no value) (units unknown) (unknown) Result panel 32 (unknown) (no date) (unknown) [facility] (no value) (units unknown) (unknown) Result panel 33 (unknown) (no date) (unknown) [facility] (no value) (units unknown) (unknown) Result panel 34 (unknown) (no date) (unknown) [facility] (no value) (units unknown) (unknown) Result panel 35 (unknown) (no date) (unknown) [facility] (no value) (units unknown) (unknown) Result panel 36 (unknown) (no date) (unknown) [facility] (no value) (units unknown) (unknown) Result panel 37 (unknown) (no date) (unknown) [facility] (no value) (units unknown) (unknown) Result panel 38 (unknown) (no date) (unknown) [facility] (no value) (units unknown) (unknown) Result panel 39 (unknown) (no date) (unknown) [facility] (no value) (units unknown) (unknown) Result panel 40 (unknown) (no date) (unknown) [facility] (no value) (units unknown) (unknown) Result panel 41 (unknown) (no date) (unknown) [facility] (no value) (units unknown) (unknown) Result panel 42 (unknown) (no date) (unknown) [facility] (no value) (units unknown) (unknown) Result panel 43 (unknown) (no date) (unknown) [facility] (no value) (units unknown) (unknown) Result panel 44 (unknown) (no date) (unknown) [facility] (no value) (units unknown) (unknown) Result panel 45 (unknown) (no date) (unknown) [facility] (no value) (units unknown) (unknown) Result panel 46 (unknown) (no date) (unknown) [facility] (no value) (units unknown) (unknown) Result panel 47 (unknown) (no date) (unknown) [facility] (no value) (units unknown) (unknown) Result panel 48 (unknown) (no date) (unknown) [facility] (no value) (units unknown) (unknown) Result panel 49 (unknown) (no date) (unknown) [facility] (no value) (units unknown) (unknown) Result panel 50 (unknown) (no date) (unknown) [facility] (no value) (units unknown) (unknown) Result panel 51 (unknown) (no date) (unknown) [facility] (no value) (units unknown) (unknown) Result panel 52 (unknown) (no date) (unknown) [facility] (no value) (units unknown) (unknown) Result panel 53 (unknown) (no date) (unknown) [facility] (no value) (units unknown) (unknown) Result panel 54 (unknown) (no date) (unknown) [facility] (no value) (units unknown) (unknown) Result panel 55 (unknown) (no date) (unknown) [facility] (no value) (units unknown) (unknown) Result panel 56 (unknown) (no date) (unknown) [facility] (no value) (units unknown) (unknown) Result panel 57 (unknown) (no date) (unknown) [facility] (no value) (units unknown) (unknown) Result panel 58 (unknown) (no date) (unknown) [facility] (no value) (units unknown) (unknown) Result panel 59 (unknown) (no date) (unknown) [facility] (no value) (units unknown) (unknown) Result panel 60 (unknown) (no date) (unknown) [facility] (no value) (units unknown) (unknown) Result panel 61 (unknown) (no date) (unknown) [facility] (no value) (units unknown) (unknown) Result panel 62 (unknown) (no date) (unknown) [facility] (no value) (units unknown) (unknown) Result panel 63 (unknown) (no date) (unknown) [facility] (no value) (units unknown) (unknown) Result panel 64 (unknown) (no date) (unknown) [facility] (no value) (units unknown) (unknown) Result panel 65 (unknown) (no date) (unknown) [facility] (no value) (units unknown) (unknown) Result panel 66 (unknown) (no date) (unknown) [facility] (no value) (units unknown) (unknown) Result panel 67 (unknown) (no date) (unknown) [facility] (no value) (units unknown) (unknown) Result panel 68 (unknown) (no date) (unknown) [facility] (no value) (units unknown) (unknown) Result panel 69 (unknown) (no date) (unknown) [facility] (no value) (units unknown) (unknown) Result panel 70 (unknown) (no date) (unknown) [facility] (no value) (units unknown) (unknown) Result panel 71 (unknown) (no date) (unknown) [facility] (no value) (units unknown) (unknown) Result panel 72 (unknown) (no date) (unknown) [facility] (no value) (units unknown) (unknown) Result panel 73 (unknown) (no date) (unknown) [facility] (no value) (units unknown) (unknown) Result panel 74 (unknown) (no date) (unknown) [facility] (no value) (units unknown) (unknown) Result panel 75 (unknown) (no date) (unknown) (unknown) 0.8 % (unknown ) (unknown) (no date) (unknown) (unknown) 0.8 % (unknown ) (unknown) (no date) (unknown) (unknown) 100 /ul (unknown ) (unknown) (no date) (unknown) (unknown) 100 /ul (unknown ) (unknown) (no date) (unknown) (unknown) 13.0 % (unknown ) (unknown) (no date) (unknown) (unknown) 13.8 g/dl (unknown ) (unknown) (no date) (unknown) (unknown) 1600 /ul (unknown ) (unknown) (no date) (unknown) (unknown) 21.2 % (unknown ) (unknown) (no date) (unknown) (unknown) 31.9 pg (unknown ) (unknown) (no date) (unknown) (unknown) 34.8 % (unknown ) (unknown) (no date) (unknown) (unknown) 367 x10 3/ul (unknow n) (unknown) (no date) (unknown) (unknown) 39.8 % (unknown ) (unknown) (no date) (unknown) (unknown) 4.34 x10 6/ul (unknow n) (unknown) (no date) (unknown) (unknown) 4.8 % (unknown ) (unknown) (no date) (unknown) (unknown) 400 /ul (unknown ) (unknown) (no date) (unknown) (unknown) 5600 /ul (unknown ) (unknown) (no date) (unknown) (unknown) 7.7 x10 3/ul (unknow n) (unknown) (no date) (unknown) (unknown) 72.4 % (unknown ) (unknown) (no date) (unknown) (unknown) 91.8 fl (unknown ) Result panel 76 (unknown) (no date) (unknown) (unknown) > 60 ml/min (unknown ) (unknown) (no date) (unknown) (unknown) > 60 ml/min (unknown ) (unknown) (no date) (unknown) (unknown) 0.74 mg/dl (unknown ) (unknown) (no date) (unknown) (unknown) 0.8 mg/dl (unknown ) (unknown) (no date) (unknown) (unknown) 1.5 (units unknown) (unknown) (unknown) (no date) (unknown) (unknown) 10 mg/dl (unknown ) (unknown) (no date) (unknown) (unknown) 103 mmol/l (unknown ) (unknown) (no date) (unknown) (unknown) 13.5 (units unknown) (unknown) (unknown) (no date) (unknown) (unknown) 137 mmol/l (unknown ) (unknown) (no date) (unknown) (unknown) 15 iu/l (unknown ) (unknown) (no date) (unknown) (unknown) 22 iu/l (unknown ) (unknown) (no date) (unknown) (unknown) 25 mmol/l (unknown ) (unknown) (no date) (unknown) (unknown) 3.3 g/dl (unknown ) (unknown) (no date) (unknown) (unknown) 3.9 mmol/l (unknown ) (unknown) (no date) (unknown) (unknown) 4.9 g/dl (unknown ) (unknown) (no date) (unknown) (unknown) 47 u/l (unknown ) (unknown) (no date) (unknown) (unknown) 73 u/l (unknown ) (unknown) (no date) (unknown) (unknown) 8.2 g/dl (unknown ) (unknown) (no date) (unknown) (unknown) 9.3 mg/dl (unknown ) (unknown) (no date) (unknown) (unknown) 97 mg/dl (unknown ) (unknown) (no date) (unknown) (unknown) 97 mg/dl (unknown ) Result panel 77 (unknown) (no date) (unknown) (unknown) (no value) (units unknown) (unknown) (unknown) (no date) (unknown) (unknown) 06/26/2206/26 Range/Units (units unknown) (unknown) (unknown) (no date) (unknown) (unknown) 06/26/22 16:53 (unit s unknown) (unknown) (unknown) (no date) (unknown) (unknown) 06/26/22 (units unknown) (unknown) (unknown) (no date) (unknown) (unknown) 16:46 06/26/22 (unit s unknown) (unknown) (unknown) (no date) (unknown) (unknown) 16:53 16:53 (units unknown) (unknown) (unknown) (no date) (unknown) (unknown) 16:57 06/26/22 (unit s unknown) (unknown) (unknown) (no date) (unknown) (unknown) 17:00 06/26/22 (unit s unknown) (unknown) (unknown) (no date) (unknown) (unknown) 17:00 (units unknown) (unknown) (unknown) (no date) (unknown) (unknown) 17:30 06/26/22 (unit s unknown) (unknown) (unknown) (no date) (unknown) (unknown) 17:30 (units unknown) (unknown) (unknown) (no date) (unknown) (unknown) 18:00 06/26/22 (unit s unknown) (unknown) (unknown) (no date) (unknown) (unknown) 18:00 (units unknown) (unknown) (unknown) (no date) (unknown) (unknown) [id number] (units unknown) (unknown) (unknown) (no date) (unknown) (unknown) 5 mg PO Q6H TN N (Reason: pain) Qty: 14 0RF (units unknown) (unknown) (unknown) (no date) (unknown) (unknown) ALT 15 (<35) IU/L (u nits unknown) (unknown) (unknown) (no date) (unknown) (unknown) AST 22 (14-36) IU/L (units unknown) (unknown) (unknown) (no date) (unknown) (unknown) Age/Sex: 31 / F (uni ts unknown) (unknown) (unknown) (no date) (unknown) (unknown) Albumin 4.9 (3.5-5.0) g/dL (units unknown) (unknown) (unknown) (no date) (unknown) (unknown) Albumin/Globul in Ratio 1.5 (1.0-2.8) (units unknown) (unknown) (unknown) (no date) (unknown) (unknown) Alkaline Phosphatase 47 (38-126) U/L (units unknown) (unknown) (unknown) (no date) (unknown) (unknown) Allergies (units unknown) (unknown) (unknown) (no date) (unknown) (unknown) Allergy/AdvRea c Type Severity Reaction Status Date / Time (units unknown) (unknown) (unknown) (no date) (unknown) (unknown) BUN 10 (7-17) mg/dL (units unknown) (unknown) (unknown) (no date) (unknown) (unknown) BUN/Creatinine Ratio 13.5 (6-22) (units unknown) (unknown) (unknown) (no date) (unknown) (unknown) Baso # (Auto) 100 (0-100) /uL (units unknown) (unknown) (unknown) (no date) (unknown) (unknown) Baso % (Auto) 0.8 (0-2) % (units unknown) (unknown) (unknown) (no date) (unknown) (unknown) Bedside Urine Bilirubin - Negative (units unknown) (unknown) (unknown) (no date) (unknown) (unknown) Bedside Urine Glucose Negative (units unknown) (unknown) (unknown) (no date) (unknown) (unknown) Bedside Urine Ketone - Negative (units unknown) (unknown) (unknown) (no date) (unknown) (unknown) Bedside Urine Leukocytes - Negative (units unknown) (unknown) (unknown) (no date) (unknown) (unknown) Bedside Urine Nitrite - Negative (units unknown) (unknown) (unknown) (no date) (unknown) (unknown) Bedside Urine Occult Blood - Negative (units unknown) (unknown) (unknown) (no date) (unknown) (unknown) Bedside Urine Protein - Negative (units unknown) (unknown) (unknown) (no date) (unknown) (unknown) Bedside Urine Urobilinogen - Negative (units unknown) (unknown) (unknown) (no date) (unknown) (unknown) Bedside Urine pH 6.0 (units unknown) (unknown) (unknown) (no date) (unknown) (unknown) Blood Pressure 134/80 (units unknown) (unknown) (unknown) (no date) (unknown) (unknown) Blood Pressure 145/83 H (units unknown) (unknown) (unknown) (no date) (unknown) (unknown) Blood Pressure 160/92 H 06/26/22 16:46 (units unknown) (unknown) (unknown) (no date) (unknown) (unknown) Blood Pressure 160/92 H 140/77 (units unknown) (unknown) (unknown) (no date) (unknown) (unknown) CBC shows norm al white blood cell count and no evidence of acute anemia (units unknown) (unknown) (unknown) (no date) (unknown) (unknown) CC: (units unknown) (unknown) (unknown) (no date) (unknown) (unknown) Calcium 9.3 (8.4-10.2) mg/dL (units unknown) (unknown) (unknown) (no date) (unknown) (unknown) Carbon Dioxide 25 (22-32) mmol/L (units unknown) (unknown) (unknown) (no date) (unknown) (unknown) Chemistries ar e completely unremarkable (units unknown) (unknown) (unknown) (no date) (unknown) (unknown) Chief complain t: Abdominal Pain (units unknown) (unknown) (unknown) (no date) (unknown) (unknown) Chloride 103 (98-107) mmol/L (units unknown) (unknown) (unknown) (no date) (unknown) (unknown) Complete Blood Count AUTO DIFF Stat (units unknown) (unknown) (unknown) (no date) (unknown) (unknown) Complicating co-morbidities: (units unknown) (unknown) (unknown) (no date) (unknown) (unknown) Comprehensive Metabolic Panel Stat (units unknown) (unknown) (unknown) (no date) (unknown) (unknown) Consultations: (unit s unknown) (unknown) (unknown) (no date) (unknown) (unknown) Course (units unknown) (unknown) (unknown) (no date) (unknown) (unknown) Creatinine 0.7 4 (0.52-1.04) mg/dL (units unknown) (unknown) (unknown) (no date) (unknown) (unknown) : 9 Acct:[id number] (units unknown) (unknown) (unknown) (no date) (unknown) (unknown) Data collected from: patient, (units unknown) (unknown) (unknown) (no date) (unknown) (unknown) Date of Servic e: 06/26/22 (units unknown) (unknown) (unknown) (no date) (unknown) (unknown) Departure (units unknown) (unknown) (unknown) (no date) (unknown) (unknown) Differential considered: (units unknown) (unknown) (unknown) (no date) (unknown) (unknown) Discharge Plan (unit s unknown) (unknown) (unknown) (no date) (unknown) (unknown) Discontinued Medications (units unknown) (unknown) (unknown) (no date) (unknown) (unknown) Discussion: (units unknown) (unknown) (unknown) (no date) (unknown) (unknown) Documented By: [facility] ( units unknown) (unknown) (unknown) (no date) (unknown) (unknown) Documented By: KEBlanco ( units unknown) (unknown) (unknown) (no date) (unknown) (unknown) ED Orders (units unknown) (unknown) (unknown) (no date) (unknown) (unknown) ER Physician: Kiara Shanks MD (units unknown) (unknown) (unknown) (no date) (unknown) (unknown) Emergency Report (un its unknown) (unknown) (unknown) (no date) (unknown) (unknown) Eos # (Auto) 1 00 (0-450) /uL (units unknown) (unknown) (unknown) (no date) (unknown) (unknown) Eos % (Auto) 0 .8 L (2-4) % (units unknown) (unknown) (unknown) (no date) (unknown) (unknown) Esterase (units unknown) (unknown) (unknown) (no date) (unknown) (unknown) Estimated GFR > 60 (>60) mL/min (units unknown) (unknown) (unknown) (no date) (unknown) (unknown) Exam documente d above, pertinent findings include: (units unknown) (unknown) (unknown) (no date) (unknown) (unknown) Exam (units unknown) (unknown) (unknown) (no date) (unknown) (unknown) General (units unknown) (unknown) (unknown) (no date) (unknown) (unknown) Globulin 3.3 (1.7-4.1) g/dL (units unknown) (unknown) (unknown) (no date) (unknown) (unknown) Glucose 97 (70 -100) mg/dL (units unknown) (unknown) (unknown) (no date) (unknown) (unknown) HPI - General Adult (units unknown) (unknown) (unknown) (no date) (unknown) (unknown) Hct 39.8 (36-46) % ( units unknown) (unknown) (unknown) (no date) (unknown) (unknown) Hgb 13.8 (12.0-16.0) g/dL (units unknown) (unknown) (unknown) (no date) (unknown) (unknown) Home Medications (un its unknown) (unknown) (unknown) (no date) (unknown) (unknown) Imaging studie s independently reviewed: (units unknown) (unknown) (unknown) (no date) (unknown) (unknown) Independently reviewed EKG as above (units unknown) (unknown) (unknown) (no date) (unknown) (unknown) Initial Vital Signs (units unknown) (unknown) (unknown) (no date) (unknown) (unknown) Initial Vital Signs: (units unknown) (unknown) (unknown) (no date) (unknown) (unknown) [address] [address] (units unknown) (unknown) (unknown) (no date) (unknown) (unknown) Lab Data (units unknown) (unknown) (unknown) (no date) (unknown) (unknown) Lab Results (units unknown) (unknown) (unknown) (no date) (unknown) (unknown) Lab Test resul ts independently reviewed as above. Pertinent findings: (units unknown) (unknown) (unknown) (no date) (unknown) (unknown) Labs: (units unknown) (unknown) (unknown) (no date) (unknown) (unknown) Last Admin: 06/26/22 16:57 Dose: 4 mg (units unknown) (unknown) (unknown) (no date) (unknown) (unknown) Last Admin: 06/26/22 18:03 Dose: 4 mg (units unknown) (unknown) (unknown) (no date) (unknown) (unknown) Lipase 73 (23- 300) U/L (units unknown) (unknown) (unknown) (no date) (unknown) (unknown) Lipase Stat (units unknown) (unknown) (unknown) (no date) (unknown) (unknown) Lymph # (Auto) 1600 (8919-2823) /uL (units unknown) (unknown) (unknown) (no date) (unknown) (unknown) Lymph % (Auto) 21.2 L (25-40) % (units unknown) (unknown) (unknown) (no date) (unknown) (unknown) MCH 31.9 (26-34) PG (units unknown) (unknown) (unknown) (no date) (unknown) (unknown) MCHC 34.8 (30-36) % (units unknown) (unknown) (unknown) (no date) (unknown) (unknown) MCV 91.8 (80-1 00) fL (units unknown) (unknown) (unknown) (no date) (unknown) (unknown) MDM Narrative (units unknown) (unknown) (unknown) (no date) (unknown) (unknown) Medical Decisi on Making (units unknown) (unknown) (unknown) (no date) (unknown) (unknown) Medical Histor y (Updated 05/26/19 @ 00:01 by ) (units unknown) (unknown) (unknown) (no date) (unknown) (unknown) Medical decisi on making narrative: (units unknown) (unknown) (unknown) (no date) (unknown) (unknown) Medical record s reviewed: (units unknown) (unknown) (unknown) (no date) (unknown) (unknown) Medication Instructions Recorded Confirmed (units unknown) (unknown) (unknown) (no date) (unknown) (unknown) Medication Instructions Recorded (units unknown) (unknown) (unknown) (no date) (unknown) (unknown) Mode of arriva l: Ambulatory (units unknown) (unknown) (unknown) (no date) (unknown) (unknown) [place] # (Auto) 400 (0-900) /uL (units unknown) (unknown) (unknown) (no date) (unknown) (unknown) [place] % (Auto) 4.8 (3-14) % (units unknown) (unknown) (unknown) (no date) (unknown) (unknown) Morphine Sulfa te (Morphine 4 Mg/Ml Inj) 4 mg IV NOW ONE (units unknown) (unknown) (unknown) (no date) (unknown) (unknown) Neut # (Auto) 5600 (4684-9885) /uL (units unknown) (unknown) (unknown) (no date) (unknown) (unknown) Neut % (Auto) 72.4 (50-75) % (units unknown) (unknown) (unknown) (no date) (unknown) (unknown) No Action (units unknown) (unknown) (unknown) (no date) (unknown) (unknown) Ondansetron HC l (Ondansetron 4 Mg Odt) 4 mg PO NOW PRN (units unknown) (unknown) (unknown) (no date) (unknown) (unknown) Ondansetron HC l (Ondansetron 4 Mg/2 Ml Inj) 4 mg IV NOW PRN (units unknown) (unknown) (unknown) (no date) (unknown) (unknown) Ordered: (units unknown) (unknown) (unknown) (no date) (unknown) (unknown) Orders (units unknown) (unknown) (unknown) (no date) (unknown) (unknown) Ovarian cyst (units unknown) (unknown) (unknown) (no date) (unknown) (unknown) Oxygen Deliver y Method Room Air 06/26/22 16:46 (units unknown) (unknown) (unknown) (no date) (unknown) (unknown) Oxygen Deliver y Method Room Air (units unknown) (unknown) (unknown) (no date) (unknown) (unknown) Oxygen Deliver y Method (units unknown) (unknown) (unknown) (no date) (unknown) (unknown) PRN Reason: Na usea And Vomiting (units unknown) (unknown) (unknown) (no date) (unknown) (unknown) Patient History (uni ts unknown) (unknown) (unknown) (no date) (unknown) (unknown) Patient: Marbella Martínez MR#: [id number] (units unknown) (unknown) (unknown) (no date) (unknown) (unknown) Plt Count 367 (150-400) X103/uL (units unknown) (unknown) (unknown) (no date) (unknown) (unknown) Point of Care Testing (units unknown) (unknown) (unknown) (no date) (unknown) (unknown) Point of care testing: (units unknown) (unknown) (unknown) (no date) (unknown) (unknown) Potassium 3.9 (3.4-5.1) mmol/L (units unknown) (unknown) (unknown) (no date) (unknown) (unknown) Test Results Negative (units unknown) (unknown) (unknown) (no date) (unknown) (unknown) Prescriptions: (unit s unknown) (unknown) (unknown) (no date) (unknown) (unknown) Previous Rx's (units unknown) (unknown) (unknown) (no date) (unknown) (unknown) Pulse Oximetry 97 06/26/22 16:46 (units unknown) (unknown) (unknown) (no date) (unknown) (unknown) Pulse Oximetry 97 99 (units unknown) (unknown) (unknown) (no date) (unknown) (unknown) Pulse Oximetry 98 100 (units unknown) (unknown) (unknown) (no date) (unknown) (unknown) Pulse Oximetry 99 (u nits unknown) (unknown) (unknown) (no date) (unknown) (unknown) Pulse Rate 76 (units unknown) (unknown) (unknown) (no date) (unknown) (unknown) Pulse Rate 84 83 (un its unknown) (unknown) (unknown) (no date) (unknown) (unknown) Pulse Rate 89 06/26/22 16:46 (units unknown) (unknown) (unknown) (no date) (unknown) (unknown) Pulse Rate 89 84 (un its unknown) (unknown) (unknown) (no date) (unknown) (unknown) RBC 4.34 (4.0- 5.2) X106/uL (units unknown) (unknown) (unknown) (no date) (unknown) (unknown) RDW 13.0 (11.6-14.8) % (units unknown) (unknown) (unknown) (no date) (unknown) (unknown) Re-evaluations: (uni ts unknown) (unknown) (unknown) (no date) (unknown) (unknown) Related Data (units unknown) (unknown) (unknown) (no date) (unknown) (unknown) Respiratory Ra te 18 06/26/22 16:46 (units unknown) (unknown) (unknown) (no date) (unknown) (unknown) Respiratory Rate 18 (units unknown) (unknown) (unknown) (no date) (unknown) (unknown) Respiratory Rate (un its unknown) (unknown) (unknown) (no date) (unknown) (unknown) Signed By: (units unknown) (unknown) (unknown) (no date) (unknown) (unknown) Smoking Status : Former smoker (units unknown) (unknown) (unknown) (no date) (unknown) (unknown) Social History (units unknown) (unknown) (unknown) (no date) (unknown) (unknown) Social determi nan of health that may influence the patients condition: (units unknown) (unknown) (unknown) (no date) (unknown) (unknown) Sodium 137 (137-145) mmol/L (units unknown) (unknown) (unknown) (no date) (unknown) (unknown) Source: patient (uni ts unknown) (unknown) (unknown) (no date) (unknown) (unknown) Stated complai nt: abd pain, nausea, vaginal bleeding, (units unknown) (unknown) (unknown) (no date) (unknown) (unknown) Stop: 06/26/22 17:54 (units unknown) (unknown) (unknown) (no date) (unknown) (unknown) Substance Use Type: marijuana (units unknown) (unknown) (unknown) (no date) (unknown) (unknown) Temperature 97 .8 F 06/26/22 16:46 (units unknown) (unknown) (unknown) (no date) (unknown) (unknown) Temperature 97.8 F ( units unknown) (unknown) (unknown) (no date) (unknown) (unknown) Temperature (units unknown) (unknown) (unknown) (no date) (unknown) (unknown) Time Seen by Provider: 06/26/22 17:01 (units unknown) (unknown) (unknown) (no date) (unknown) (unknown) Total Bilirubi n 0.8 (0.2-1.3) mg/dL (units unknown) (unknown) (unknown) (no date) (unknown) (unknown) Total Protein 8.2 (6.3-8.2) g/dL (units unknown) (unknown) (unknown) (no date) (unknown) (unknown) Treatments: (units unknown) (unknown) (unknown) (no date) (unknown) (unknown) Urine Dip (units unknown) (unknown) (unknown) (no date) (unknown) (unknown) Urine Specific [place] 1.005 (units unknown) (unknown) (unknown) (no date) (unknown) (unknown) Urine dip is negative (units unknown) (unknown) (unknown) (no date) (unknown) (unknown) Urine pregnanc y test is negative (units unknown) (unknown) (unknown) (no date) (unknown) (unknown) Vital Signs - 8 hr ( units unknown) (unknown) (unknown) (no date) (unknown) (unknown) Vital Signs (units unknown) (unknown) (unknown) (no date) (unknown) (unknown) Vital signs: (units unknown) (unknown) (unknown) (no date) (unknown) (unknown) WBC 7.7 (4.5-1 1.0) X103/uL (units unknown) (unknown) (unknown) (no date) (unknown) (unknown) [Embedded Imag e Not Available] (units unknown) (unknown) (unknown) (no date) (unknown) (unknown) alcohol intake frequency: holidays/special occasions only (units unknown) (unknown) (unknown) (no date) (unknown) (unknown) cephalexin [Fr om Keflex] AdvReac Intermediate Vomiting Verified 06/26/22 16:51 (units unknown) (unknown) (unknown) (no date) (unknown) (unknown) codeine AdvRea c ITCHING Verified 06/26/22 16:51 (units unknown) (unknown) (unknown) (no date) (unknown) (unknown) doxycycline Ad vReac Fatigued Verified 06/26/22 16:51 (units unknown) (unknown) (unknown) (no date) (unknown) (unknown) nortriptyline 05/10/19 (units unknown) (unknown) (unknown) (no date) (unknown) (unknown) nortriptyline (units unknown) (unknown) (unknown) (no date) (unknown) (unknown) oxycodone 5 mg tablet 5 mg PO Q6H PRN pain #14 tabs 02/23/19 (units unknown) (unknown) (unknown) (no date) (unknown) (unknown) oxycodone 5 mg tablet (units unknown) (unknown) Result panel 78 (unknown) (no date) (unknown) (unknown) (no value) (units unknown) (unknown) (unknown) (no date) (unknown) (unknown) [id number] (units unknown) (unknown) (unknown) (no date) (unknown) (unknown) 06/26/22 (units unknown) (unknown) (unknown) (no date) (unknown) (unknown) 1. No acute sonographic abnormality in the pelvis. Specifically, no evidence of (units unknown) (unknown) (unknown) (no date) (unknown) (unknown) [address] [place] [address] (un its unknown) (unknown) (unknown) (no date) (unknown) (unknown) Accession Numb er: [id number] (units unknown) (unknown) (unknown) (no date) (unknown) (unknown) Additional endovaginal scanning was necessary due to incomplete visualization of (units unknown) (unknown) (unknown) (no date) (unknown) (unknown) Age/Sex: 31 / F Date of Service: (units unknown) (unknown) (unknown) (no date) (unknown) (unknown) [place] [address] (units unknown) (unknown) (unknown) (no date) (unknown) (unknown) Approved by: Radha Arboleda M.D. on 06/26/2022 at 20:29 (units unknown) (unknown) (unknown) (no date) (unknown) (unknown) COMPARISON: [facility], US PELVIC COMPLETE, 05/10/2019, 22:22. (units unknown) (unknown) (unknown) (no date) (unknown) (unknown) : 9 Acct:[id number] (units unknown) (unknown) (unknown) (no date) (unknown) (unknown) Dictated by: Radha Arboleda M.D. on 06/26/2022 at 20:27 (units unknown) (unknown) (unknown) (no date) (unknown) (unknown) Endometrium (units unknown) (unknown) (unknown) (no date) (unknown) (unknown) FINDINGS: (units unknown) (unknown) (unknown) (no date) (unknown) (unknown) IMPRESSION: (units unknown) (unknown) (unknown) (no date) (unknown) (unknown) INDICATIONS: R IGHT PELVIC PAIN (units unknown) (unknown) (unknown) (no date) (unknown) (unknown) [facility] (uni ts unknown) (unknown) (unknown) (no date) (unknown) (unknown) Loc: ED (units unknown) (unknown) (unknown) (no date) (unknown) (unknown) Ordering Provi regan: Kiara Shanks MD (units unknown) (unknown) (unknown) (no date) (unknown) (unknown) Other: No pathologic free abdominal or pelvic fluid. (units unknown) (unknown) (unknown) (no date) (unknown) (unknown) Ovaries: The r ight ovary measures 3.2 x 4.1 x 1.8 cm, with a calculated ovarian (units unknown) (unknown) (unknown) (no date) (unknown) (unknown) PROCEDURE: US PELVIC COMPLETE (units unknown) (unknown) (unknown) (no date) (unknown) (unknown) Patient: Marbella Martínez MR#: [id number] (units unknown) (unknown) (unknown) (no date) (unknown) (unknown) Procedure: US pelvic complete (units unknown) (unknown) (unknown) (no date) (unknown) (unknown) Real-time scan alexey was performed of the pelvic organs, with image documentation. (units unknown) (unknown) (unknown) (no date) (unknown) (unknown) Signed (units unknown) (unknown) (unknown) (no date) (unknown) (unknown) TECHNIQUE: (units unknown) (unknown) (unknown) (no date) (unknown) (unknown) To assist (units unknown) (unknown) (unknown) (no date) (unknown) (unknown) Ultrasound Report (u nits unknown) (unknown) (unknown) (no date) (unknown) (unknown) Uterus: Uterus is anteverted and measures up to 7.2 x 4.0 x 4.4 cm. (units unknown) (unknown) (unknown) (no date) (unknown) (unknown) We strive to produce accurate, complete, and clear reports of imaging services. (units unknown) (unknown) (unknown) (no date) (unknown) (unknown) adnexal and endometrial structures by transabdominal scanning. (units unknown) (unknown) (unknown) (no date) (unknown) (unknown) and voice recognition software. Therefore, it may contain abnormal punctuation, (units unknown) (unknown) (unknown) (no date) (unknown) (unknown) be seen in eac h ovary. No adnexal masses. There is patent arterial flow (units unknown) (unknown) (unknown) (no date) (unknown) (unknown) demonstrated in (uni ts unknown) (unknown) (unknown) (no date) (unknown) (unknown) extending (units unknown) (unknown) (unknown) (no date) (unknown) (unknown) follicles can (units unknown) (unknown) (unknown) (no date) (unknown) (unknown) inaccuracies. (units unknown) (unknown) (unknown) (no date) (unknown) (unknown) insertions and /or omissions. Occasional wrong-word or sound-alike substitutions (units unknown) (unknown) (unknown) (no date) (unknown) (unknown) into the archie l endometrium. (units unknown) (unknown) (unknown) (no date) (unknown) (unknown) may (units unknown) (unknown) (unknown) (no date) (unknown) (unknown) measures up to 0.5 cm in thickness. An IUD appears in appropriate position, (units unknown) (unknown) (unknown) (no date) (unknown) (unknown) occur. Though we review the report and make efforts to correct it, we do (units unknown) (unknown) (unknown) (no date) (unknown) (unknown) of 12.2 cc. Th e left ovary measures 2.7 x 2.2 x 1.9 cm, with a calculated (units unknown) (unknown) (unknown) (no date) (unknown) (unknown) of 5.9 cc. The ovaries have a normal sonographic appearance. Less than 12 (units unknown) (unknown) (unknown) (no date) (unknown) (unknown) ovarian volume (unit s unknown) (unknown) (unknown) (no date) (unknown) (unknown) ovarian (units unknown) (unknown) (unknown) (no date) (unknown) (unknown) recommend that (unit s unknown) (unknown) (unknown) (no date) (unknown) (unknown) templates (units unknown) (unknown) (unknown) (no date) (unknown) (unknown) the ovaries. (units unknown) (unknown) (unknown) (no date) (unknown) (unknown) the report be read carefully in proper context to recognize any text (units unknown) (unknown) (unknown) (no date) (unknown) (unknown) the (units unknown) (unknown) (unknown) (no date) (unknown) (unknown) torsion. (units unknown) (unknown) (unknown) (no date) (unknown) (unknown) us in merged with [facility] patient care, this report was composed using standard report (units unknown) (unknown) (unknown) (no date) (unknown) (unknown) volume (units unknown) (unknown) Result panel 79 (unknown) (no date) (unknown) (unknown) (no value) (units unknown) (unknown) (unknown) (no date) (unknown) (unknown) 06/26/2206/26 Range/Units (units unknown) (unknown) (unknown) (no date) (unknown) (unknown) 06/26/22 16:53 (unit s unknown) (unknown) (unknown) (no date) (unknown) (unknown) 06/26/22 (units unknown) (unknown) (unknown) (no date) (unknown) (unknown) 16:46 06/26/22 (unit s unknown) (unknown) (unknown) (no date) (unknown) (unknown) 16:53 16:53 (units unknown) (unknown) (unknown) (no date) (unknown) (unknown) 16:57 06/26/22 (unit s unknown) (unknown) (unknown) (no date) (unknown) (unknown) 17:00 06/26/22 (unit s unknown) (unknown) (unknown) (no date) (unknown) (unknown) 17:00 (units unknown) (unknown) (unknown) (no date) (unknown) (unknown) 17:30 06/26/22 (unit s unknown) (unknown) (unknown) (no date) (unknown) (unknown) 17:30 (units unknown) (unknown) (unknown) (no date) (unknown) (unknown) 18:00 06/26/22 (unit s unknown) (unknown) (unknown) (no date) (unknown) (unknown) 18:00 (units unknown) (unknown) (unknown) (no date) (unknown) (unknown) [id number] (units unknown) (unknown) (unknown) (no date) (unknown) (unknown) 5 mg PO Q6H TN N (Reason: pain) Qty: 14 0RF (units unknown) (unknown) (unknown) (no date) (unknown) (unknown) ALT 15 (<35) IU/L (u nits unknown) (unknown) (unknown) (no date) (unknown) (unknown) AST 22 (14-36) IU/L (units unknown) (unknown) (unknown) (no date) (unknown) (unknown) Age/Sex: 31 / F (uni ts unknown) (unknown) (unknown) (no date) (unknown) (unknown) Albumin 4.9 (3.5-5.0) g/dL (units unknown) (unknown) (unknown) (no date) (unknown) (unknown) Albumin/Globul in Ratio 1.5 (1.0-2.8) (units unknown) (unknown) (unknown) (no date) (unknown) (unknown) Alkaline Phosphatase 47 (38-126) U/L (units unknown) (unknown) (unknown) (no date) (unknown) (unknown) Allergies (units unknown) (unknown) (unknown) (no date) (unknown) (unknown) Allergy/AdvRea c Type Severity Reaction Status Date / Time (units unknown) (unknown) (unknown) (no date) (unknown) (unknown) BUN 10 (7-17) mg/dL (units unknown) (unknown) (unknown) (no date) (unknown) (unknown) BUN/Creatinine Ratio 13.5 (6-22) (units unknown) (unknown) (unknown) (no date) (unknown) (unknown) Baso # (Auto) 100 (0-100) /uL (units unknown) (unknown) (unknown) (no date) (unknown) (unknown) Baso % (Auto) 0.8 (0-2) % (units unknown) (unknown) (unknown) (no date) (unknown) (unknown) Bedside Urine Bilirubin - Negative (units unknown) (unknown) (unknown) (no date) (unknown) (unknown) Bedside Urine Glucose Negative (units unknown) (unknown) (unknown) (no date) (unknown) (unknown) Bedside Urine Ketone - Negative (units unknown) (unknown) (unknown) (no date) (unknown) (unknown) Bedside Urine Leukocytes - Negative (units unknown) (unknown) (unknown) (no date) (unknown) (unknown) Bedside Urine Nitrite - Negative (units unknown) (unknown) (unknown) (no date) (unknown) (unknown) Bedside Urine Occult Blood - Negative (units unknown) (unknown) (unknown) (no date) (unknown) (unknown) Bedside Urine Protein - Negative (units unknown) (unknown) (unknown) (no date) (unknown) (unknown) Bedside Urine Urobilinogen - Negative (units unknown) (unknown) (unknown) (no date) (unknown) (unknown) Bedside Urine pH 6.0 (units unknown) (unknown) (unknown) (no date) (unknown) (unknown) Blood Pressure 134/80 (units unknown) (unknown) (unknown) (no date) (unknown) (unknown) Blood Pressure 145/83 H (units unknown) (unknown) (unknown) (no date) (unknown) (unknown) Blood Pressure 160/92 H 06/26/22 16:46 (units unknown) (unknown) (unknown) (no date) (unknown) (unknown) Blood Pressure 160/92 H 140/77 (units unknown) (unknown) (unknown) (no date) (unknown) (unknown) CBC shows norm al white blood cell count and no evidence of acute anemia (units unknown) (unknown) (unknown) (no date) (unknown) (unknown) CC: (units unknown) (unknown) (unknown) (no date) (unknown) (unknown) Calcium 9.3 (8.4-10.2) mg/dL (units unknown) (unknown) (unknown) (no date) (unknown) (unknown) Carbon Dioxide 25 (22-32) mmol/L (units unknown) (unknown) (unknown) (no date) (unknown) (unknown) Chemistries ar e completely unremarkable (units unknown) (unknown) (unknown) (no date) (unknown) (unknown) Chief complain t: Abdominal Pain (units unknown) (unknown) (unknown) (no date) (unknown) (unknown) Chloride 103 (98-107) mmol/L (units unknown) (unknown) (unknown) (no date) (unknown) (unknown) Complete Blood Count AUTO DIFF Stat (units unknown) (unknown) (unknown) (no date) (unknown) (unknown) Complicating co-morbidities: (units unknown) (unknown) (unknown) (no date) (unknown) (unknown) Comprehensive Metabolic Panel Stat (units unknown) (unknown) (unknown) (no date) (unknown) (unknown) Consultations: (unit s unknown) (unknown) (unknown) (no date) (unknown) (unknown) Course (units unknown) (unknown) (unknown) (no date) (unknown) (unknown) Creatinine 0.7 4 (0.52-1.04) mg/dL (units unknown) (unknown) (unknown) (no date) (unknown) (unknown) : 9 Acct:[id number] (units unknown) (unknown) (unknown) (no date) (unknown) (unknown) Data collected from: patient, (units unknown) (unknown) (unknown) (no date) (unknown) (unknown) Date of Servic e: 06/26/22 (units unknown) (unknown) (unknown) (no date) (unknown) (unknown) Departure (units unknown) (unknown) (unknown) (no date) (unknown) (unknown) Differential considered: (units unknown) (unknown) (unknown) (no date) (unknown) (unknown) Discharge Plan (unit s unknown) (unknown) (unknown) (no date) (unknown) (unknown) Discontinued Medications (units unknown) (unknown) (unknown) (no date) (unknown) (unknown) Discussion: (units unknown) (unknown) (unknown) (no date) (unknown) (unknown) Documented By: TEJAS ( units unknown) (unknown) (unknown) (no date) (unknown) (unknown) Documented By: JOSSE ( units unknown) (unknown) (unknown) (no date) (unknown) (unknown) ED Orders (units unknown) (unknown) (unknown) (no date) (unknown) (unknown) ER Physician: Laursen,Kiara L MD (units unknown) (unknown) (unknown) (no date) (unknown) (unknown) Emergency Report (un its unknown) (unknown) (unknown) (no date) (unknown) (unknown) Eos # (Auto) 1 00 (0-450) /uL (units unknown) (unknown) (unknown) (no date) (unknown) (unknown) Eos % (Auto) 0 .8 L (2-4) % (units unknown) (unknown) (unknown) (no date) (unknown) (unknown) Esterase (units unknown) (unknown) (unknown) (no date) (unknown) (unknown) Estimated GFR > 60 (>60) mL/min (units unknown) (unknown) (unknown) (no date) (unknown) (unknown) Exam documente d above, pertinent findings include: (units unknown) (unknown) (unknown) (no date) (unknown) (unknown) Exam (units unknown) (unknown) (unknown) (no date) (unknown) (unknown) General (units unknown) (unknown) (unknown) (no date) (unknown) (unknown) Globulin 3.3 (1.7-4.1) g/dL (units unknown) (unknown) (unknown) (no date) (unknown) (unknown) Glucose 97 (70 -100) mg/dL (units unknown) (unknown) (unknown) (no date) (unknown) (unknown) HPI - General Adult (units unknown) (unknown) (unknown) (no date) (unknown) (unknown) HPI narrative: (unit s unknown) (unknown) (unknown) (no date) (unknown) (unknown) Hct 39.8 (36-46) % ( units unknown) (unknown) (unknown) (no date) (unknown) (unknown) Hgb 13.8 (12.0-16.0) g/dL (units unknown) (unknown) (unknown) (no date) (unknown) (unknown) History of Pre sent Illness (units unknown) (unknown) (unknown) (no date) (unknown) (unknown) Home Medications (un its unknown) (unknown) (unknown) (no date) (unknown) (unknown) Imaging studie s independently reviewed: (units unknown) (unknown) (unknown) (no date) (unknown) (unknown) Independently reviewed EKG as above (units unknown) (unknown) (unknown) (no date) (unknown) (unknown) Initial Vital Signs (units unknown) (unknown) (unknown) (no date) (unknown) (unknown) Initial Vital Signs: (units unknown) (unknown) (unknown) (no date) (unknown) (unknown) R[facility] Garza [address] [place] [id number] (units unknown) (unknown) (unknown) (no date) (unknown) (unknown) Lab Data (units unknown) (unknown) (unknown) (no date) (unknown) (unknown) Lab Results (units unknown) (unknown) (unknown) (no date) (unknown) (unknown) Lab Test resul ts independently reviewed as above. Pertinent findings: (units unknown) (unknown) (unknown) (no date) (unknown) (unknown) Labs: (units unknown) (unknown) (unknown) (no date) (unknown) (unknown) Last Admin: 06/26/22 16:57 Dose: 4 mg (units unknown) (unknown) (unknown) (no date) (unknown) (unknown) Last Admin: 06/26/22 18:03 Dose: 4 mg (units unknown) (unknown) (unknown) (no date) (unknown) (unknown) Lipase 73 (23- 300) U/L (units unknown) (unknown) (unknown) (no date) (unknown) (unknown) Lipase Stat (units unknown) (unknown) (unknown) (no date) (unknown) (unknown) Lymph # (Auto) 1600 (2451-7708) /uL (units unknown) (unknown) (unknown) (no date) (unknown) (unknown) Lymph % (Auto) 21.2 L (25-40) % (units unknown) (unknown) (unknown) (no date) (unknown) (unknown) MCH 31.9 (26-34) PG (units unknown) (unknown) (unknown) (no date) (unknown) (unknown) MCHC 34.8 (30-36) % (units unknown) (unknown) (unknown) (no date) (unknown) (unknown) MCV 91.8 (80-1 00) fL (units unknown) (unknown) (unknown) (no date) (unknown) (unknown) MDM Narrative (units unknown) (unknown) (unknown) (no date) (unknown) (unknown) Medical Decisi on Making (units unknown) (unknown) (unknown) (no date) (unknown) (unknown) Medical Histor y (Updated 05/26/19 @ 00:01 by ) (units unknown) (unknown) (unknown) (no date) (unknown) (unknown) Medical decisi on making narrative: (units unknown) (unknown) (unknown) (no date) (unknown) (unknown) Medical record s reviewed: (units unknown) (unknown) (unknown) (no date) (unknown) (unknown) Medication Instructions Recorded Confirmed (units unknown) (unknown) (unknown) (no date) (unknown) (unknown) Medication Instructions Recorded (units unknown) (unknown) (unknown) (no date) (unknown) (unknown) Mode of arriva l: Ambulatory (units unknown) (unknown) (unknown) (no date) (unknown) (unknown) [place] # (Auto) 400 (0-900) /uL (units unknown) (unknown) (unknown) (no date) (unknown) (unknown) [place] % (Auto) 4.8 (3-14) % (units unknown) (unknown) (unknown) (no date) (unknown) (unknown) Morphine Sulfa te (Morphine 4 Mg/Ml Inj) 4 mg IV NOW ONE (units unknown) (unknown) (unknown) (no date) (unknown) (unknown) Neut # (Auto) 5600 (5991-4560) /uL (units unknown) (unknown) (unknown) (no date) (unknown) (unknown) Neut % (Auto) 72.4 (50-75) % (units unknown) (unknown) (unknown) (no date) (unknown) (unknown) No Action (units unknown) (unknown) (unknown) (no date) (unknown) (unknown) Ondansetron HC l (Ondansetron 4 Mg Odt) 4 mg PO NOW PRN (units unknown) (unknown) (unknown) (no date) (unknown) (unknown) Ondansetron HC l (Ondansetron 4 Mg/2 Ml Inj) 4 mg IV NOW PRN (units unknown) (unknown) (unknown) (no date) (unknown) (unknown) Ordered: (units unknown) (unknown) (unknown) (no date) (unknown) (unknown) Orders (units unknown) (unknown) (unknown) (no date) (unknown) (unknown) Ovarian cyst (units unknown) (unknown) (unknown) (no date) (unknown) (unknown) Oxygen Deliver y Method Room Air 06/26/22 16:46 (units unknown) (unknown) (unknown) (no date) (unknown) (unknown) Oxygen Deliver y Method Room Air (units unknown) (unknown) (unknown) (no date) (unknown) (unknown) Oxygen Deliver y Method (units unknown) (unknown) (unknown) (no date) (unknown) (unknown) PRN Reason: Na usea And Vomiting (units unknown) (unknown) (unknown) (no date) (unknown) (unknown) Patient History (uni ts unknown) (unknown) (unknown) (no date) (unknown) (unknown) Patient: Marbella Martínez MR#: [id number] (units unknown) (unknown) (unknown) (no date) (unknown) (unknown) Plt Count 367 (150-400) X103/uL (units unknown) (unknown) (unknown) (no date) (unknown) (unknown) Point of Care Testing (units unknown) (unknown) (unknown) (no date) (unknown) (unknown) Point of care testing: (units unknown) (unknown) (unknown) (no date) (unknown) (unknown) Potassium 3.9 (3.4-5.1) mmol/L (units unknown) (unknown) (unknown) (no date) (unknown) (unknown) Test Results Negative (units unknown) (unknown) (unknown) (no date) (unknown) (unknown) Prescriptions: (unit s unknown) (unknown) (unknown) (no date) (unknown) (unknown) Previous Rx's (units unknown) (unknown) (unknown) (no date) (unknown) (unknown) Pulse Oximetry 97 06/26/22 16:46 (units unknown) (unknown) (unknown) (no date) (unknown) (unknown) Pulse Oximetry 97 99 (units unknown) (unknown) (unknown) (no date) (unknown) (unknown) Pulse Oximetry 98 100 (units unknown) (unknown) (unknown) (no date) (unknown) (unknown) Pulse Oximetry 99 (u nits unknown) (unknown) (unknown) (no date) (unknown) (unknown) Pulse Rate 76 (units unknown) (unknown) (unknown) (no date) (unknown) (unknown) Pulse Rate 84 83 (un its unknown) (unknown) (unknown) (no date) (unknown) (unknown) Pulse Rate 89 06/26/22 16:46 (units unknown) (unknown) (unknown) (no date) (unknown) (unknown) Pulse Rate 89 84 (un its unknown) (unknown) (unknown) (no date) (unknown) (unknown) RBC 4.34 (4.0- 5.2) X106/uL (units unknown) (unknown) (unknown) (no date) (unknown) (unknown) RDW 13.0 (11.6-14.8) % (units unknown) (unknown) (unknown) (no date) (unknown) (unknown) Re-evaluations: (uni ts unknown) (unknown) (unknown) (no date) (unknown) (unknown) Related Data (units unknown) (unknown) (unknown) (no date) (unknown) (unknown) Respiratory Ra te 18 06/26/22 16:46 (units unknown) (unknown) (unknown) (no date) (unknown) (unknown) Respiratory Rate 18 (units unknown) (unknown) (unknown) (no date) (unknown) (unknown) Respiratory Rate (un its unknown) (unknown) (unknown) (no date) (unknown) (unknown) Signed By: (units unknown) (unknown) (unknown) (no date) (unknown) (unknown) Smoking Status : Former smoker (units unknown) (unknown) (unknown) (no date) (unknown) (unknown) Social History (units unknown) (unknown) (unknown) (no date) (unknown) (unknown) Social determi nants of health that may influence the patients condition: (units unknown) (unknown) (unknown) (no date) (unknown) (unknown) Sodium 137 (137-145) mmol/L (units unknown) (unknown) (unknown) (no date) (unknown) (unknown) Source: patient (uni ts unknown) (unknown) (unknown) (no date) (unknown) (unknown) Stated complai nt: abd pain, nausea, vaginal bleeding, (units unknown) (unknown) (unknown) (no date) (unknown) (unknown) Stop: 06/26/22 17:54 (units unknown) (unknown) (unknown) (no date) (unknown) (unknown) Substance Use Type: marijuana (units unknown) (unknown) (unknown) (no date) (unknown) (unknown) Temperature 97 .8 F 06/26/22 16:46 (units unknown) (unknown) (unknown) (no date) (unknown) (unknown) Temperature 97.8 F ( units unknown) (unknown) (unknown) (no date) (unknown) (unknown) Temperature (units unknown) (unknown) (unknown) (no date) (unknown) (unknown) There 31-year- old woman, G 3p2 with 1 ectopic , history of (units unknown) (unknown) (unknown) (no date) (unknown) (unknown) Time Seen by Provider: 06/26/22 17:01 (units unknown) (unknown) (unknown) (no date) (unknown) (unknown) Total Bilirubi n 0.8 (0.2-1.3) mg/dL (units unknown) (unknown) (unknown) (no date) (unknown) (unknown) Total Protein 8.2 (6.3-8.2) g/dL (units unknown) (unknown) (unknown) (no date) (unknown) (unknown) Treatments: (units unknown) (unknown) (unknown) (no date) (unknown) (unknown) Urine Dip (units unknown) (unknown) (unknown) (no date) (unknown) (unknown) Urine Specific [place] 1.005 (units unknown) (unknown) (unknown) (no date) (unknown) (unknown) Urine dip is negative (units unknown) (unknown) (unknown) (no date) (unknown) (unknown) Urine pregnanc y test is negative (units unknown) (unknown) (unknown) (no date) (unknown) (unknown) Vital Signs - 8 hr ( units unknown) (unknown) (unknown) (no date) (unknown) (unknown) Vital Signs (units unknown) (unknown) (unknown) (no date) (unknown) (unknown) Vital signs: (units unknown) (unknown) (unknown) (no date) (unknown) (unknown) WBC 7.7 (4.5-1 1.0) X103/uL (units unknown) (unknown) (unknown) (no date) (unknown) (unknown) [Embedded Imag e Not Available] (units unknown) (unknown) (unknown) (no date) (unknown) (unknown) alcohol intake frequency: holidays/special occasions only (units unknown) (unknown) (unknown) (no date) (unknown) (unknown) cephalexin [Fr om Keflex] AdvReac Intermediate Vomiting Verified 06/26/22 16:51 (units unknown) (unknown) (unknown) (no date) (unknown) (unknown) codeine AdvRea c ITCHING Verified 06/26/22 16:51 (units unknown) (unknown) (unknown) (no date) (unknown) (unknown) doxycycline Ad vReac Fatigued Verified 06/26/22 16:51 (units unknown) (unknown) (unknown) (no date) (unknown) (unknown) endometriosis, adenomyosis and polycystic ovarian disease presents with (units unknown) (unknown) (unknown) (no date) (unknown) (unknown) increasing rig ht low quadrant/pelvic pain. (units unknown) (unknown) (unknown) (no date) (unknown) (unknown) nortriptyline 05/10/19 (units unknown) (unknown) (unknown) (no date) (unknown) (unknown) nortriptyline (units unknown) (unknown) (unknown) (no date) (unknown) (unknown) oxycodone 5 mg tablet 5 mg PO Q6H PRN pain #14 tabs 02/23/19 (units unknown) (unknown) (unknown) (no date) (unknown) (unknown) oxycodone 5 mg tablet (units unknown) (unknown) Result panel 80 (unknown) (no date) (unknown) (unknown) (no value) (units unknown) (unknown) (unknown) (no date) (unknown) (unknown) 06/26/2206/26 Range/Units (units unknown) (unknown) (unknown) (no date) (unknown) (unknown) 06/26/22 16:53 (unit s unknown) (unknown) (unknown) (no date) (unknown) (unknown) 06/26/22 (units unknown) (unknown) (unknown) (no date) (unknown) (unknown) 16:46 06/26/22 (unit s unknown) (unknown) (unknown) (no date) (unknown) (unknown) 16:53 16:53 (units unknown) (unknown) (unknown) (no date) (unknown) (unknown) 16:57 06/26/22 (unit s unknown) (unknown) (unknown) (no date) (unknown) (unknown) 17:00 06/26/22 (unit s unknown) (unknown) (unknown) (no date) (unknown) (unknown) 17:00 (units unknown) (unknown) (unknown) (no date) (unknown) (unknown) 17:30 06/26/22 (unit s unknown) (unknown) (unknown) (no date) (unknown) (unknown) 17:30 (units unknown) (unknown) (unknown) (no date) (unknown) (unknown) 18:00 06/26/22 (unit s unknown) (unknown) (unknown) (no date) (unknown) (unknown) 18:00 (units unknown) (unknown) (unknown) (no date) (unknown) (unknown) [id number] (units unknown) (unknown) (unknown) (no date) (unknown) (unknown) 5 mg PO Q6H TN N (Reason: pain) Qty: 14 0RF (units unknown) (unknown) (unknown) (no date) (unknown) (unknown) ALT 15 (<35) IU/L (u nits unknown) (unknown) (unknown) (no date) (unknown) (unknown) AST 22 (14-36) IU/L (units unknown) (unknown) (unknown) (no date) (unknown) (unknown) Abdomen: Soft, very tender in the right lower pelvis and lower quadrant area (units unknown) (unknown) (unknown) (no date) (unknown) (unknown) Adenomyosis (units unknown) (unknown) (unknown) (no date) (unknown) (unknown) Age/Sex: 31 / F (uni ts unknown) (unknown) (unknown) (no date) (unknown) (unknown) Albumin 4.9 (3.5-5.0) g/dL (units unknown) (unknown) (unknown) (no date) (unknown) (unknown) Albumin/Globul in Ratio 1.5 (1.0-2.8) (units unknown) (unknown) (unknown) (no date) (unknown) (unknown) Alkaline Phosphatase 47 (38-126) U/L (units unknown) (unknown) (unknown) (no date) (unknown) (unknown) Allergies (units unknown) (unknown) (unknown) (no date) (unknown) (unknown) Allergy/AdvRea c Type Severity Reaction Status Date / Time (units unknown) (unknown) (unknown) (no date) (unknown) (unknown) BUN 10 (7-17) mg/dL (units unknown) (unknown) (unknown) (no date) (unknown) (unknown) BUN/Creatinine Ratio 13.5 (6-22) (units unknown) (unknown) (unknown) (no date) (unknown) (unknown) Baso # (Auto) 100 (0-100) /uL (units unknown) (unknown) (unknown) (no date) (unknown) (unknown) Baso % (Auto) 0.8 (0-2) % (units unknown) (unknown) (unknown) (no date) (unknown) (unknown) Bedside Urine Bilirubin - Negative (units unknown) (unknown) (unknown) (no date) (unknown) (unknown) Bedside Urine Glucose Negative (units unknown) (unknown) (unknown) (no date) (unknown) (unknown) Bedside Urine Ketone - Negative (units unknown) (unknown) (unknown) (no date) (unknown) (unknown) Bedside Urine Leukocytes - Negative (units unknown) (unknown) (unknown) (no date) (unknown) (unknown) Bedside Urine Nitrite - Negative (units unknown) (unknown) (unknown) (no date) (unknown) (unknown) Bedside Urine Occult Blood - Negative (units unknown) (unknown) (unknown) (no date) (unknown) (unknown) Bedside Urine Protein - Negative (units unknown) (unknown) (unknown) (no date) (unknown) (unknown) Bedside Urine Urobilinogen - Negative (units unknown) (unknown) (unknown) (no date) (unknown) (unknown) Bedside Urine pH 6.0 (units unknown) (unknown) (unknown) (no date) (unknown) (unknown) Bimanual exam: Exquisite tenderness in the right adnexa with less tenderness (units unknown) (unknown) (unknown) (no date) (unknown) (unknown) Blood Pressure 134/80 (units unknown) (unknown) (unknown) (no date) (unknown) (unknown) Blood Pressure 145/83 H (units unknown) (unknown) (unknown) (no date) (unknown) (unknown) Blood Pressure 160/92 H 06/26/22 16:46 (units unknown) (unknown) (unknown) (no date) (unknown) (unknown) Blood Pressure 160/92 H 140/77 (units unknown) (unknown) (unknown) (no date) (unknown) (unknown) CBC shows norm al white blood cell count and no evidence of acute anemia (units unknown) (unknown) (unknown) (no date) (unknown) (unknown) CC: Right lowe r quadrant/pelvic pain, this is an acute problem uncertain (units unknown) (unknown) (unknown) (no date) (unknown) (unknown) Calcium 9.3 (8.4-10.2) mg/dL (units unknown) (unknown) (unknown) (no date) (unknown) (unknown) Carbon Dioxide 25 (22-32) mmol/L (units unknown) (unknown) (unknown) (no date) (unknown) (unknown) Cardiac: Regul ar rate and rhythm no murmurs no bruits (units unknown) (unknown) (unknown) (no date) (unknown) (unknown) Chemistries ar e completely unremarkable (units unknown) (unknown) (unknown) (no date) (unknown) (unknown) Chief complain t: Abdominal Pain (units unknown) (unknown) (unknown) (no date) (unknown) (unknown) Chloride 103 (98-107) mmol/L (units unknown) (unknown) (unknown) (no date) (unknown) (unknown) Complete Blood Count AUTO DIFF Stat (units unknown) (unknown) (unknown) (no date) (unknown) (unknown) Complicating co-morbidities: Prior ectopic , ovarian cysts, (units unknown) (unknown) (unknown) (no date) (unknown) (unknown) Comprehensive Metabolic Panel Stat (units unknown) (unknown) (unknown) (no date) (unknown) (unknown) Consultations: (unit s unknown) (unknown) (unknown) (no date) (unknown) (unknown) Course (units unknown) (unknown) (unknown) (no date) (unknown) (unknown) Creatinine 0.7 4 (0.52-1.04) mg/dL (units unknown) (unknown) (unknown) (no date) (unknown) (unknown) : 9 Acct:[id number] (units unknown) (unknown) (unknown) (no date) (unknown) (unknown) Data collected from: patient (units unknown) (unknown) (unknown) (no date) (unknown) (unknown) Date of Servic e: 06/26/22 (units unknown) (unknown) (unknown) (no date) (unknown) (unknown) Departure (units unknown) (unknown) (unknown) (no date) (unknown) (unknown) Differential considered: (units unknown) (unknown) (unknown) (no date) (unknown) (unknown) Dilaudid (units unknown) (unknown) (unknown) (no date) (unknown) (unknown) Discharge Plan (unit s unknown) (unknown) (unknown) (no date) (unknown) (unknown) Discontinued Medications (units unknown) (unknown) (unknown) (no date) (unknown) (unknown) Discussion: (units unknown) (unknown) (unknown) (no date) (unknown) (unknown) Documented By: [facility]U ( units unknown) (unknown) (unknown) (no date) (unknown) (unknown) Documented By: JOSSE ( units unknown) (unknown) (unknown) (no date) (unknown) (unknown) ED Orders (units unknown) (unknown) (unknown) (no date) (unknown) (unknown) ER Physician: Kiara Shanks MD (units unknown) (unknown) (unknown) (no date) (unknown) (unknown) Emergency Report (un its unknown) (unknown) (unknown) (no date) (unknown) (unknown) Endometriosis (units unknown) (unknown) (unknown) (no date) (unknown) (unknown) Eos # (Auto) 1 00 (0-450) /uL (units unknown) (unknown) (unknown) (no date) (unknown) (unknown) Eos % (Auto) 0 .8 L (2-4) % (units unknown) (unknown) (unknown) (no date) (unknown) (unknown) Esterase (units unknown) (unknown) (unknown) (no date) (unknown) (unknown) Estimated GFR > 60 (>60) mL/min (units unknown) (unknown) (unknown) (no date) (unknown) (unknown) Exam documente d above, pertinent findings include: (units unknown) (unknown) (unknown) (no date) (unknown) (unknown) Exam (units unknown) (unknown) (unknown) (no date) (unknown) (unknown) Exquisite righ t adnexal tenderness with minor red vaginal spotting (units unknown) (unknown) (unknown) (no date) (unknown) (unknown) Extremities: N o trauma, well perfused (units unknown) (unknown) (unknown) (no date) (unknown) (unknown) Full and symmetrical air movement (units unknown) (unknown) (unknown) (no date) (unknown) (unknown) General (units unknown) (unknown) (unknown) (no date) (unknown) (unknown) General: Healt hy appearing, in moderate distress secondary to pain.. Able to (units unknown) (unknown) (unknown) (no date) (unknown) (unknown) Globulin 3.3 (1.7-4.1) g/dL (units unknown) (unknown) (unknown) (no date) (unknown) (unknown) Glucose 97 (70 -100) mg/dL (units unknown) (unknown) (unknown) (no date) (unknown) (unknown) HEENT: Moist m ucous membranes, normal sclera with reactive pupils, (units unknown) (unknown) (unknown) (no date) (unknown) (unknown) HPI - General Adult (units unknown) (unknown) (unknown) (no date) (unknown) (unknown) HPI narrative: (unit s unknown) (unknown) (unknown) (no date) (unknown) (unknown) Hct 39.8 (36-46) % ( units unknown) (unknown) (unknown) (no date) (unknown) (unknown) Hgb 13.8 (12.0-16.0) g/dL (units unknown) (unknown) (unknown) (no date) (unknown) (unknown) History of Pre sent Illness (units unknown) (unknown) (unknown) (no date) (unknown) (unknown) Home Medications (un its unknown) (unknown) (unknown) (no date) (unknown) (unknown) Imaging studie s independently reviewed: (units unknown) (unknown) (unknown) (no date) (unknown) (unknown) Initial Vital Signs (units unknown) (unknown) (unknown) (no date) (unknown) (unknown) Initial Vital Signs: (units unknown) (unknown) (unknown) (no date) (unknown) (unknown) [facility] Garza [address] [place] [id number] (units unknown) (unknown) (unknown) (no date) (unknown) (unknown) Lab Data (units unknown) (unknown) (unknown) (no date) (unknown) (unknown) Lab Results (units unknown) (unknown) (unknown) (no date) (unknown) (unknown) Lab Test resul ts independently reviewed as above. Pertinent findings: (units unknown) (unknown) (unknown) (no date) (unknown) (unknown) Labs: (units unknown) (unknown) (unknown) (no date) (unknown) (unknown) Last Admin: 06/26/22 16:57 Dose: 4 mg (units unknown) (unknown) (unknown) (no date) (unknown) (unknown) Last Admin: 06/26/22 18:03 Dose: 4 mg (units unknown) (unknown) (unknown) (no date) (unknown) (unknown) Lipase 73 (23- 300) U/L (units unknown) (unknown) (unknown) (no date) (unknown) (unknown) Lipase Stat (units unknown) (unknown) (unknown) (no date) (unknown) (unknown) Lymph # (Auto) 1600 (5359-1530) /uL (units unknown) (unknown) (unknown) (no date) (unknown) (unknown) Lymph % (Auto) 21.2 L (25-40) % (units unknown) (unknown) (unknown) (no date) (unknown) (unknown) MCH 31.9 (26-34) PG (units unknown) (unknown) (unknown) (no date) (unknown) (unknown) MCHC 34.8 (30-36) % (units unknown) (unknown) (unknown) (no date) (unknown) (unknown) MCV 91.8 (80-1 00) fL (units unknown) (unknown) (unknown) (no date) (unknown) (unknown) MDM Narrative (units unknown) (unknown) (unknown) (no date) (unknown) (unknown) Medical Decisi on Making (units unknown) (unknown) (unknown) (no date) (unknown) (unknown) Medical Histor y (Updated 06/26/22 @ 19:14 by Kiara Shanks MD) (units unknown) (unknown) (unknown) (no date) (unknown) (unknown) Medical decisi on making narrative: (units unknown) (unknown) (unknown) (no date) (unknown) (unknown) Medical record s reviewed: ER visit from April of 2019 for ovarian cyst is (units unknown) (unknown) (unknown) (no date) (unknown) (unknown) Medication Instructions Recorded Confirmed (units unknown) (unknown) (unknown) (no date) (unknown) (unknown) Medication Instructions Recorded (units unknown) (unknown) (unknown) (no date) (unknown) (unknown) Mode of arriva l: Ambulatory (units unknown) (unknown) (unknown) (no date) (unknown) (unknown) [place] # (Auto) 400 (0-900) /uL (units unknown) (unknown) (unknown) (no date) (unknown) (unknown) [place] % (Auto) 4.8 (3-14) % (units unknown) (unknown) (unknown) (no date) (unknown) (unknown) Morphine Sulfa te (Morphine 4 Mg/Ml Inj) 4 mg IV NOW ONE (units unknown) (unknown) (unknown) (no date) (unknown) (unknown) Narrative: (units unknown) (unknown) (unknown) (no date) (unknown) (unknown) Neurologic: Gr ossly neurologically intact with no obvious asymmetries or (units unknown) (unknown) (unknown) (no date) (unknown) (unknown) Neut # (Auto) 5600 (3868-7464) /uL (units unknown) (unknown) (unknown) (no date) (unknown) (unknown) Neut % (Auto) 72.4 (50-75) % (units unknown) (unknown) (unknown) (no date) (unknown) (unknown) No Action (units unknown) (unknown) (unknown) (no date) (unknown) (unknown) Ondansetron HC l (Ondansetron 4 Mg Odt) 4 mg PO NOW PRN (units unknown) (unknown) (unknown) (no date) (unknown) (unknown) Ondansetron HC l (Ondansetron 4 Mg/2 Ml Inj) 4 mg IV NOW PRN (units unknown) (unknown) (unknown) (no date) (unknown) (unknown) Ordered: (units unknown) (unknown) (unknown) (no date) (unknown) (unknown) Orders (units unknown) (unknown) (unknown) (no date) (unknown) (unknown) Ovarian cyst (units unknown) (unknown) (unknown) (no date) (unknown) (unknown) Oxygen Deliver y Method Room Air 06/26/22 16:46 (units unknown) (unknown) (unknown) (no date) (unknown) (unknown) Oxygen Deliver y Method Room Air (units unknown) (unknown) (unknown) (no date) (unknown) (unknown) Oxygen Deliver y Method (units unknown) (unknown) (unknown) (no date) (unknown) (unknown) PRN Reason: Na usea And Vomiting (units unknown) (unknown) (unknown) (no date) (unknown) (unknown) Patient History (uni ts unknown) (unknown) (unknown) (no date) (unknown) (unknown) Patient: Marbella Martínez MR#: [id number] (units unknown) (unknown) (unknown) (no date) (unknown) (unknown) Pertinent posi tive and negative findings as per HPI (units unknown) (unknown) (unknown) (no date) (unknown) (unknown) Plt Count 367 (150-400) X103/uL (units unknown) (unknown) (unknown) (no date) (unknown) (unknown) Point of Care Testing (units unknown) (unknown) (unknown) (no date) (unknown) (unknown) Point of care testing: (units unknown) (unknown) (unknown) (no date) (unknown) (unknown) Polycystic ova ry disease (units unknown) (unknown) (unknown) (no date) (unknown) (unknown) Potassium 3.9 (3.4-5.1) mmol/L (units unknown) (unknown) (unknown) (no date) (unknown) (unknown) Test Results Negative (units unknown) (unknown) (unknown) (no date) (unknown) (unknown) Prescriptions: (unit s unknown) (unknown) (unknown) (no date) (unknown) (unknown) Previous Rx's (units unknown) (unknown) (unknown) (no date) (unknown) (unknown) Psych: Cooper[place] t[place], appropriate insight and affect (units unknown) (unknown) (unknown) (no date) (unknown) (unknown) Pulse Oximetry 97 06/26/22 16:46 (units unknown) (unknown) (unknown) (no date) (unknown) (unknown) Pulse Oximetry 97 99 (units unknown) (unknown) (unknown) (no date) (unknown) (unknown) Pulse Oximetry 98 100 (units unknown) (unknown) (unknown) (no date) (unknown) (unknown) Pulse Oximetry 99 (u nits unknown) (unknown) (unknown) (no date) (unknown) (unknown) Pulse Rate 76 (units unknown) (unknown) (unknown) (no date) (unknown) (unknown) Pulse Rate 84 83 (un its unknown) (unknown) (unknown) (no date) (unknown) (unknown) Pulse Rate 89 06/26/22 16:46 (units unknown) (unknown) (unknown) (no date) (unknown) (unknown) Pulse Rate 89 84 (un its unknown) (unknown) (unknown) (no date) (unknown) (unknown) RBC 4.34 (4.0- 5.2) X106/uL (units unknown) (unknown) (unknown) (no date) (unknown) (unknown) RDW 13.0 (11.6-14.8) % (units unknown) (unknown) (unknown) (no date) (unknown) (unknown) Re-evaluations: (uni ts unknown) (unknown) (unknown) (no date) (unknown) (unknown) Related Data (units unknown) (unknown) (unknown) (no date) (unknown) (unknown) Respiratory Ra te 18 06/26/22 16:46 (units unknown) (unknown) (unknown) (no date) (unknown) (unknown) Respiratory Rate 18 (units unknown) (unknown) (unknown) (no date) (unknown) (unknown) Respiratory Rate (un its unknown) (unknown) (unknown) (no date) (unknown) (unknown) Respiratory: L ungs are clear to auscultation, no wheezing no rales no rhonchi. (units unknown) (unknown) (unknown) (no date) (unknown) (unknown) Review of Systems (u nits unknown) (unknown) (unknown) (no date) (unknown) (unknown) She is concern ed that she has another ectopic . She notes that she has (units unknown) (unknown) (unknown) (no date) (unknown) (unknown) Signed By: (units unknown) (unknown) (unknown) (no date) (unknown) (unknown) Skin: Warm and dry, no rashes (units unknown) (unknown) (unknown) (no date) (unknown) (unknown) Smoking Status : Former smoker (units unknown) (unknown) (unknown) (no date) (unknown) (unknown) Social History (units unknown) (unknown) (unknown) (no date) (unknown) (unknown) Sodium 137 (137-145) mmol/L (units unknown) (unknown) (unknown) (no date) (unknown) (unknown) Source: patient (uni ts unknown) (unknown) (unknown) (no date) (unknown) (unknown) Stated complai nt: abd pain, nausea, vaginal bleeding, (units unknown) (unknown) (unknown) (no date) (unknown) (unknown) Stop: 06/26/22 17:54 (units unknown) (unknown) (unknown) (no date) (unknown) (unknown) Substance Use Type: marijuana (units unknown) (unknown) (unknown) (no date) (unknown) (unknown) Temperature 97 .8 F 06/26/22 16:46 (units unknown) (unknown) (unknown) (no date) (unknown) (unknown) Temperature 97.8 F ( units unknown) (unknown) (unknown) (no date) (unknown) (unknown) Temperature (units unknown) (unknown) (unknown) (no date) (unknown) (unknown) There 31-year- old woman, G 3p2 with 1 ectopic , history of (units unknown) (unknown) (unknown) (no date) (unknown) (unknown) Time Seen by Provider: 06/26/22 17:01 (units unknown) (unknown) (unknown) (no date) (unknown) (unknown) Total Bilirubi n 0.8 (0.2-1.3) mg/dL (units unknown) (unknown) (unknown) (no date) (unknown) (unknown) Total Protein 8.2 (6.3-8.2) g/dL (units unknown) (unknown) (unknown) (no date) (unknown) (unknown) Treatments: IV fluids, parenteral Toradol, parenteral morphine parenteral (units unknown) (unknown) (unknown) (no date) (unknown) (unknown) Urine Dip (units unknown) (unknown) (unknown) (no date) (unknown) (unknown) Urine Specific [place] 1.005 (units unknown) (unknown) (unknown) (no date) (unknown) (unknown) Urine dip is negative (units unknown) (unknown) (unknown) (no date) (unknown) (unknown) Urine pregnanc y test is negative (units unknown) (unknown) (unknown) (no date) (unknown) (unknown) Vital Signs - 8 hr ( units unknown) (unknown) (unknown) (no date) (unknown) (unknown) Vital Signs (units unknown) (unknown) (unknown) (no date) (unknown) (unknown) Vital signs: (units unknown) (unknown) (unknown) (no date) (unknown) (unknown) WBC 7.7 (4.5-1 1.0) X103/uL (units unknown) (unknown) (unknown) (no date) (unknown) (unknown) [Embedded Imag e Not Available] (units unknown) (unknown) (unknown) (no date) (unknown) (unknown) abnormalities (units unknown) (unknown) (unknown) (no date) (unknown) (unknown) alcohol intake frequency: holidays/special occasions only (units unknown) (unknown) (unknown) (no date) (unknown) (unknown) at 1:00 p.m. t russel is increasing. She is been having some bright red spotting. (units unknown) (unknown) (unknown) (no date) (unknown) (unknown) because it is irritating the right adnexa. There is some slight pink discharge, (units unknown) (unknown) (unknown) (no date) (unknown) (unknown) cephalexin [Fr om Keflex] AdvReac Intermediate Vomiting Verified 06/26/22 16:51 (units unknown) (unknown) (unknown) (no date) (unknown) (unknown) codeine AdvRea c ITCHING Verified 06/26/22 16:51 (units unknown) (unknown) (unknown) (no date) (unknown) (unknown) doxycycline Ad vReac Fatigued Verified 06/26/22 16:51 (units unknown) (unknown) (unknown) (no date) (unknown) (unknown) endometriosis, adenomyosis and polycystic ovarian disease presents with (units unknown) (unknown) (unknown) (no date) (unknown) (unknown) endometriosis, adenomyosis, polycystic ovary disease (units unknown) (unknown) (unknown) (no date) (unknown) (unknown) give a complet e and coherent history. Well-nourished well-developed (units unknown) (unknown) (unknown) (no date) (unknown) (unknown) increasing rig ht low quadrant/pelvic pain. She states that she began feeling (units unknown) (unknown) (unknown) (no date) (unknown) (unknown) no unusual odor. (un its unknown) (unknown) (unknown) (no date) (unknown) (unknown) nortriptyline 05/10/19 (units unknown) (unknown) (unknown) (no date) (unknown) (unknown) nortriptyline (units unknown) (unknown) (unknown) (no date) (unknown) (unknown) not had any fe vers, cough, chills. She did have a normal bowel movement earlier (units unknown) (unknown) (unknown) (no date) (unknown) (unknown) over the true right lower quadrant/expected appendix location. She is to tender (units unknown) (unknown) (unknown) (no date) (unknown) (unknown) oxycodone 5 mg tablet 5 mg PO Q6H PRN pain #14 tabs 02/23/19 (units unknown) (unknown) (unknown) (no date) (unknown) (unknown) oxycodone 5 mg tablet (units unknown) (unknown) (unknown) (no date) (unknown) (unknown) prognosis (units unknown) (unknown) (unknown) (no date) (unknown) (unknown) reviewed (units unknown) (unknown) (unknown) (no date) (unknown) (unknown) size uterus. S he does have cervical motion tenderness however I think that is (units unknown) (unknown) (unknown) (no date) (unknown) (unknown) some twinges i n the right lower quadrant last night but the severe pain started (units unknown) (unknown) (unknown) (no date) (unknown) (unknown) to do a more thorough pelvic exam and I am unable to estimate adnexal mass or (units unknown) (unknown) (unknown) (no date) (unknown) (unknown) today that did not influence her pain and was not bloody. (units unknown) (unknown) Result panel 81 (unknown) (no date) (unknown) (unknown) (no value) (units unknown) (unknown) (unknown) (no date) (unknown) (unknown) 06/26/2206/26 Range/Units (units unknown) (unknown) (unknown) (no date) (unknown) (unknown) 06/26/22 16:53 (unit s unknown) (unknown) (unknown) (no date) (unknown) (unknown) 06/26/22 19:08 (unit s unknown) (unknown) (unknown) (no date) (unknown) (unknown) 06/26/22 19:42 (unit s unknown) (unknown) (unknown) (no date) (unknown) (unknown) 06/26/22 (units unknown) (unknown) (unknown) (no date) (unknown) (unknown) 16:46 06/26/22 (unit s unknown) (unknown) (unknown) (no date) (unknown) (unknown) 16:53 16:53 (units unknown) (unknown) (unknown) (no date) (unknown) (unknown) 16:57 06/26/22 (unit s unknown) (unknown) (unknown) (no date) (unknown) (unknown) 17:00 06/26/22 (unit s unknown) (unknown) (unknown) (no date) (unknown) (unknown) 17:00 (units unknown) (unknown) (unknown) (no date) (unknown) (unknown) 17:30 06/26/22 (unit s unknown) (unknown) (unknown) (no date) (unknown) (unknown) 17:30 (units unknown) (unknown) (unknown) (no date) (unknown) (unknown) 18:00 06/26/22 (unit s unknown) (unknown) (unknown) (no date) (unknown) (unknown) 18:49 (units unknown) (unknown) (unknown) (no date) (unknown) (unknown) 18:52 06/26/22 (unit s unknown) (unknown) (unknown) (no date) (unknown) (unknown) 19:01 (units unknown) (unknown) (unknown) (no date) (unknown) (unknown) 19:20 06/26/22 (unit s unknown) (unknown) (unknown) (no date) (unknown) (unknown) 19:30 (units unknown) (unknown) (unknown) (no date) (unknown) (unknown) [id number] (units unknown) (unknown) (unknown) (no date) (unknown) (unknown) 5 mg PO Q6H TN N (Reason: pain) Qty: 14 0RF (units unknown) (unknown) (unknown) (no date) (unknown) (unknown) ALT 15 (<35) IU/L (u nits unknown) (unknown) (unknown) (no date) (unknown) (unknown) AST 22 (14-36) IU/L (units unknown) (unknown) (unknown) (no date) (unknown) (unknown) Abdomen: Soft, very tender in the right lower pelvis and lower quadrant area (units unknown) (unknown) (unknown) (no date) (unknown) (unknown) Adenomyosis (units unknown) (unknown) (unknown) (no date) (unknown) (unknown) Admin: 3 19:21 Dose: 0.5 mg (units unknown) (unknown) (unknown) (no date) (unknown) (unknown) Age/Sex: 31 / F (uni ts unknown) (unknown) (unknown) (no date) (unknown) (unknown) Albumin 4.9 (3.5-5.0) g/dL (units unknown) (unknown) (unknown) (no date) (unknown) (unknown) Albumin/Globul in Ratio 1.5 (1.0-2.8) (units unknown) (unknown) (unknown) (no date) (unknown) (unknown) Alkaline Phosphatase 47 (38-126) U/L (units unknown) (unknown) (unknown) (no date) (unknown) (unknown) Allergies (units unknown) (unknown) (unknown) (no date) (unknown) (unknown) Allergy/AdvRea c Type Severity Reaction Status Date / Time (units unknown) (unknown) (unknown) (no date) (unknown) (unknown) BUN 10 (7-17) mg/dL (units unknown) (unknown) (unknown) (no date) (unknown) (unknown) BUN/Creatinine Ratio 13.5 (6-22) (units unknown) (unknown) (unknown) (no date) (unknown) (unknown) Baso # (Auto) 100 (0-100) /uL (units unknown) (unknown) (unknown) (no date) (unknown) (unknown) Baso % (Auto) 0.8 (0-2) % (units unknown) (unknown) (unknown) (no date) (unknown) (unknown) Bedside Urine Bilirubin - Negative (units unknown) (unknown) (unknown) (no date) (unknown) (unknown) Bedside Urine Glucose Negative (units unknown) (unknown) (unknown) (no date) (unknown) (unknown) Bedside Urine Ketone - Negative (units unknown) (unknown) (unknown) (no date) (unknown) (unknown) Bedside Urine Leukocytes - Negative (units unknown) (unknown) (unknown) (no date) (unknown) (unknown) Bedside Urine Nitrite - Negative (units unknown) (unknown) (unknown) (no date) (unknown) (unknown) Bedside Urine Occult Blood - Negative (units unknown) (unknown) (unknown) (no date) (unknown) (unknown) Bedside Urine Protein - Negative (units unknown) (unknown) (unknown) (no date) (unknown) (unknown) Bedside Urine Urobilinogen - Negative (units unknown) (unknown) (unknown) (no date) (unknown) (unknown) Bedside Urine pH 6.0 (units unknown) (unknown) (unknown) (no date) (unknown) (unknown) Bimanual exam: Exquisite tenderness in the right adnexa with less tenderness (units unknown) (unknown) (unknown) (no date) (unknown) (unknown) Blood Pressure 134/80 (units unknown) (unknown) (unknown) (no date) (unknown) (unknown) Blood Pressure 136/76 (units unknown) (unknown) (unknown) (no date) (unknown) (unknown) Blood Pressure 145/83 H (units unknown) (unknown) (unknown) (no date) (unknown) (unknown) Blood Pressure 149/94 H 137/94 H (units unknown) (unknown) (unknown) (no date) (unknown) (unknown) Blood Pressure 160/92 H 06/26/22 16:46 (units unknown) (unknown) (unknown) (no date) (unknown) (unknown) Blood Pressure 160/92 H 140/77 (units unknown) (unknown) (unknown) (no date) (unknown) (unknown) Blood Pressure (unit s unknown) (unknown) (unknown) (no date) (unknown) (unknown) CBC shows norm al white blood cell count and no evidence of acute anemia (units unknown) (unknown) (unknown) (no date) (unknown) (unknown) CC: Right lowe r quadrant/pelvic pain, this is an acute problem uncertain (units unknown) (unknown) (unknown) (no date) (unknown) (unknown) COVID19 -Nasal RAPID Stat (units unknown) (unknown) (unknown) (no date) (unknown) (unknown) Calcium 9.3 (8.4-10.2) mg/dL (units unknown) (unknown) (unknown) (no date) (unknown) (unknown) Carbon Dioxide 25 (22-32) mmol/L (units unknown) (unknown) (unknown) (no date) (unknown) (unknown) Cardiac: Regul ar rate and rhythm no murmurs no bruits (units unknown) (unknown) (unknown) (no date) (unknown) (unknown) Chemistries ar e completely unremarkable (units unknown) (unknown) (unknown) (no date) (unknown) (unknown) Chief complain t: Abdominal Pain (units unknown) (unknown) (unknown) (no date) (unknown) (unknown) Chloride 103 (98-107) mmol/L (units unknown) (unknown) (unknown) (no date) (unknown) (unknown) Complete Blood Count AUTO DIFF Stat (units unknown) (unknown) (unknown) (no date) (unknown) (unknown) Complicating co-morbidities: Prior ectopic , ovarian cysts, (units unknown) (unknown) (unknown) (no date) (unknown) (unknown) Comprehensive Metabolic Panel Stat (units unknown) (unknown) (unknown) (no date) (unknown) (unknown) Consultations: (unit s unknown) (unknown) (unknown) (no date) (unknown) (unknown) Course (units unknown) (unknown) (unknown) (no date) (unknown) (unknown) Creatinine 0.7 4 (0.52-1.04) mg/dL (units unknown) (unknown) (unknown) (no date) (unknown) (unknown) : 9 Acct:[id number] (units unknown) (unknown) (unknown) (no date) (unknown) (unknown) Data collected from: patient (units unknown) (unknown) (unknown) (no date) (unknown) (unknown) Date of Servic e: 06/26/22 (units unknown) (unknown) (unknown) (no date) (unknown) (unknown) Departure (units unknown) (unknown) (unknown) (no date) (unknown) (unknown) Differential considered: (units unknown) (unknown) (unknown) (no date) (unknown) (unknown) Dilaudid (units unknown) (unknown) (unknown) (no date) (unknown) (unknown) Discharge Plan (unit s unknown) (unknown) (unknown) (no date) (unknown) (unknown) Discontinued Medications (units unknown) (unknown) (unknown) (no date) (unknown) (unknown) Discussion: (units unknown) (unknown) (unknown) (no date) (unknown) (unknown) Documented By: [facility]U ( units unknown) (unknown) (unknown) (no date) (unknown) (unknown) Documented By: BS (u nits unknown) (unknown) (unknown) (no date) (unknown) (unknown) Documented By: KEB ( units unknown) (unknown) (unknown) (no date) (unknown) (unknown) ED Orders (units unknown) (unknown) (unknown) (no date) (unknown) (unknown) ER Physician: Kiara Shanks MD (units unknown) (unknown) (unknown) (no date) (unknown) (unknown) Emergency Report (un its unknown) (unknown) (unknown) (no date) (unknown) (unknown) Endometriosis (units unknown) (unknown) (unknown) (no date) (unknown) (unknown) Eos # (Auto) 1 00 (0-450) /uL (units unknown) (unknown) (unknown) (no date) (unknown) (unknown) Eos % (Auto) 0 .8 L (2-4) % (units unknown) (unknown) (unknown) (no date) (unknown) (unknown) Esterase (units unknown) (unknown) (unknown) (no date) (unknown) (unknown) Estimated GFR > 60 (>60) mL/min (units unknown) (unknown) (unknown) (no date) (unknown) (unknown) Exam documente d above, pertinent findings include: (units unknown) (unknown) (unknown) (no date) (unknown) (unknown) Exam (units unknown) (unknown) (unknown) (no date) (unknown) (unknown) Exquisite righ t adnexal tenderness with minor red vaginal spotting (units unknown) (unknown) (unknown) (no date) (unknown) (unknown) Extremities: N o trauma, well perfused (units unknown) (unknown) (unknown) (no date) (unknown) (unknown) Full and symmetrical air movement (units unknown) (unknown) (unknown) (no date) (unknown) (unknown) General (units unknown) (unknown) (unknown) (no date) (unknown) (unknown) General: Healt hy appearing, in moderate distress secondary to pain.. Able to (units unknown) (unknown) (unknown) (no date) (unknown) (unknown) Globulin 3.3 (1.7-4.1) g/dL (units unknown) (unknown) (unknown) (no date) (unknown) (unknown) Glucose 97 (70 -100) mg/dL (units unknown) (unknown) (unknown) (no date) (unknown) (unknown) HEENT: Moist m ucous membranes, normal sclera with reactive pupils, (units unknown) (unknown) (unknown) (no date) (unknown) (unknown) HPI - General Adult (units unknown) (unknown) (unknown) (no date) (unknown) (unknown) HPI narrative: (unit s unknown) (unknown) (unknown) (no date) (unknown) (unknown) Hct 39.8 (36-46) % ( units unknown) (unknown) (unknown) (no date) (unknown) (unknown) Hgb 13.8 (12.0-16.0) g/dL (units unknown) (unknown) (unknown) (no date) (unknown) (unknown) History of Pre sent Illness (units unknown) (unknown) (unknown) (no date) (unknown) (unknown) Home Medications (un its unknown) (unknown) (unknown) (no date) (unknown) (unknown) Hydromorphone HCl (Hydromorphone 0.5 Mg Inj) 0.5 mg IV Q15MIN PRN (units unknown) (unknown) (unknown) (no date) (unknown) (unknown) Imaging studie s independently reviewed: Pelvic ultrasound does not show a (units unknown) (unknown) (unknown) (no date) (unknown) (unknown) Initial Vital Signs (units unknown) (unknown) (unknown) (no date) (unknown) (unknown) Initial Vital Signs: (units unknown) (unknown) (unknown) (no date) (unknown) (unknown) [address] [address] (units unknown) (unknown) (unknown) (no date) (unknown) (unknown) Ketorolac Tromethamine (Ketorolac 30 Mg/Ml Vial) 15 mg IV NOW ONE (units unknown) (unknown) (unknown) (no date) (unknown) (unknown) Lab Data (units unknown) (unknown) (unknown) (no date) (unknown) (unknown) Lab Results (units unknown) (unknown) (unknown) (no date) (unknown) (unknown) Lab Test resul ts independently reviewed as above. Pertinent findings: (units unknown) (unknown) (unknown) (no date) (unknown) (unknown) Labs: (units unknown) (unknown) (unknown) (no date) (unknown) (unknown) Last Admin: 06/26/22 16:57 Dose: 4 mg (units unknown) (unknown) (unknown) (no date) (unknown) (unknown) Last Admin: 06/26/22 18:03 Dose: 4 mg (units unknown) (unknown) (unknown) (no date) (unknown) (unknown) Last Admin: 06/26/22 19:21 Dose: 1,000 mls/hr (units unknown) (unknown) (unknown) (no date) (unknown) (unknown) Last Admin: 06/26/22 19:22 Dose: 15 mg (units unknown) (unknown) (unknown) (no date) (unknown) (unknown) Last Admin: 06/26/22 20:21 Dose: 0.5 mg (units unknown) (unknown) (unknown) (no date) (unknown) (unknown) Lipase 73 (23- 300) U/L (units unknown) (unknown) (unknown) (no date) (unknown) (unknown) Lipase Stat (units unknown) (unknown) (unknown) (no date) (unknown) (unknown) Lymph # (Auto) 1600 (5302-9363) /uL (units unknown) (unknown) (unknown) (no date) (unknown) (unknown) Lymph % (Auto) 21.2 L (25-40) % (units unknown) (unknown) (unknown) (no date) (unknown) (unknown) MCH 31.9 (26-34) PG (units unknown) (unknown) (unknown) (no date) (unknown) (unknown) MCHC 34.8 (30-36) % (units unknown) (unknown) (unknown) (no date) (unknown) (unknown) MCV 91.8 (80-1 00) fL (units unknown) (unknown) (unknown) (no date) (unknown) (unknown) MDM Narrative (units unknown) (unknown) (unknown) (no date) (unknown) (unknown) Medical Decisi on Making (units unknown) (unknown) (unknown) (no date) (unknown) (unknown) Medical Histor y (Updated 06/26/22 @ 19:14 by Kiara Shanks MD) (units unknown) (unknown) (unknown) (no date) (unknown) (unknown) Medical decisi on making narrative: (units unknown) (unknown) (unknown) (no date) (unknown) (unknown) Medical record s reviewed: ER visit from April of 2019 for ovarian cyst is (units unknown) (unknown) (unknown) (no date) (unknown) (unknown) Medication Instructions Recorded Confirmed (units unknown) (unknown) (unknown) (no date) (unknown) (unknown) Medication Instructions Recorded (units unknown) (unknown) (unknown) (no date) (unknown) (unknown) Mode of arriva l: Ambulatory (units unknown) (unknown) (unknown) (no date) (unknown) (unknown) [place] # (Auto) 400 (0-900) /uL (units unknown) (unknown) (unknown) (no date) (unknown) (unknown) [place] % (Auto) 4.8 (3-14) % (units unknown) (unknown) (unknown) (no date) (unknown) (unknown) Morphine Sulfa te (Morphine 4 Mg/Ml Inj) 4 mg IV NOW ONE (units unknown) (unknown) (unknown) (no date) (unknown) (unknown) Narrative: (units unknown) (unknown) (unknown) (no date) (unknown) (unknown) Neurologic: Gr ossly neurologically intact with no obvious asymmetries or (units unknown) (unknown) (unknown) (no date) (unknown) (unknown) Neut # (Auto) 5600 (2742-8748) /uL (units unknown) (unknown) (unknown) (no date) (unknown) (unknown) Neut % (Auto) 72.4 (50-75) % (units unknown) (unknown) (unknown) (no date) (unknown) (unknown) No Action (units unknown) (unknown) (unknown) (no date) (unknown) (unknown) Ondansetron HC l (Ondansetron 4 Mg Odt) 4 mg PO NOW PRN (units unknown) (unknown) (unknown) (no date) (unknown) (unknown) Ondansetron HC l (Ondansetron 4 Mg/2 Ml Inj) 4 mg IV NOW PRN (units unknown) (unknown) (unknown) (no date) (unknown) (unknown) Ordered: (units unknown) (unknown) (unknown) (no date) (unknown) (unknown) Orders (units unknown) (unknown) (unknown) (no date) (unknown) (unknown) Ovarian cyst (units unknown) (unknown) (unknown) (no date) (unknown) (unknown) Ovaries show a right-sided 1 measuring 3.2 x 4.1 x 1.8 with good vascular flow. (units unknown) (unknown) (unknown) (no date) (unknown) (unknown) Oxygen Deliver y Method Room Air 06/26/22 16:46 (units unknown) (unknown) (unknown) (no date) (unknown) (unknown) Oxygen Deliver y Method Room Air (units unknown) (unknown) (unknown) (no date) (unknown) (unknown) Oxygen Deliver y Method (units unknown) (unknown) (unknown) (no date) (unknown) (unknown) PRN Reason: Na usea And Vomiting (units unknown) (unknown) (unknown) (no date) (unknown) (unknown) PRN Reason: Pain, (u nits unknown) (unknown) (unknown) (no date) (unknown) (unknown) Patient History (uni ts unknown) (unknown) (unknown) (no date) (unknown) (unknown) Patient: Marbella Martínez MR#: [id number] (units unknown) (unknown) (unknown) (no date) (unknown) (unknown) Pertinent posi tive and negative findings as per HPI (units unknown) (unknown) (unknown) (no date) (unknown) (unknown) Plt Count 367 (150-400) X103/uL (units unknown) (unknown) (unknown) (no date) (unknown) (unknown) Point of Care Testing (units unknown) (unknown) (unknown) (no date) (unknown) (unknown) Point of care testing: (units unknown) (unknown) (unknown) (no date) (unknown) (unknown) Polycystic ova ry disease (units unknown) (unknown) (unknown) (no date) (unknown) (unknown) Potassium 3.9 (3.4-5.1) mmol/L (units unknown) (unknown) (unknown) (no date) (unknown) (unknown) Test Results Negative (units unknown) (unknown) (unknown) (no date) (unknown) (unknown) Prescriptions: (unit s unknown) (unknown) (unknown) (no date) (unknown) (unknown) Previous Rx's (units unknown) (unknown) (unknown) (no date) (unknown) (unknown) Psych: [place] t[place], appropriate insight and affect (units unknown) (unknown) (unknown) (no date) (unknown) (unknown) Pulse Oximetry 100 ( units unknown) (unknown) (unknown) (no date) (unknown) (unknown) Pulse Oximetry 97 06/26/22 16:46 (units unknown) (unknown) (unknown) (no date) (unknown) (unknown) Pulse Oximetry 97 99 (units unknown) (unknown) (unknown) (no date) (unknown) (unknown) Pulse Oximetry 98 100 (units unknown) (unknown) (unknown) (no date) (unknown) (unknown) Pulse Oximetry 99 98 (units unknown) (unknown) (unknown) (no date) (unknown) (unknown) Pulse Oximetry 99 (u nits unknown) (unknown) (unknown) (no date) (unknown) (unknown) Pulse Rate 73 (units unknown) (unknown) (unknown) (no date) (unknown) (unknown) Pulse Rate 76 85 (un its unknown) (unknown) (unknown) (no date) (unknown) (unknown) Pulse Rate 77 (units unknown) (unknown) (unknown) (no date) (unknown) (unknown) Pulse Rate 80 84 (un its unknown) (unknown) (unknown) (no date) (unknown) (unknown) Pulse Rate 84 83 (un its unknown) (unknown) (unknown) (no date) (unknown) (unknown) Pulse Rate 89 06/26/22 16:46 (units unknown) (unknown) (unknown) (no date) (unknown) (unknown) Pulse Rate 89 84 (un its unknown) (unknown) (unknown) (no date) (unknown) (unknown) RBC 4.34 (4.0- 5.2) X106/uL (units unknown) (unknown) (unknown) (no date) (unknown) (unknown) RDW 13.0 (11.6-14.8) % (units unknown) (unknown) (unknown) (no date) (unknown) (unknown) Re-evaluations: (uni ts unknown) (unknown) (unknown) (no date) (unknown) (unknown) Related Data (units unknown) (unknown) (unknown) (no date) (unknown) (unknown) Respiratory Ra te 18 06/26/22 16:46 (units unknown) (unknown) (unknown) (no date) (unknown) (unknown) Respiratory Rate 18 (units unknown) (unknown) (unknown) (no date) (unknown) (unknown) Respiratory Ra te 23 26 H (units unknown) (unknown) (unknown) (no date) (unknown) (unknown) Respiratory Rate 24 (units unknown) (unknown) (unknown) (no date) (unknown) (unknown) Respiratory Ra te 28 H (units unknown) (unknown) (unknown) (no date) (unknown) (unknown) Respiratory Rate (un its unknown) (unknown) (unknown) (no date) (unknown) (unknown) Respiratory: L ungs are clear to auscultation, no wheezing no rales no rhonchi. (units unknown) (unknown) (unknown) (no date) (unknown) (unknown) Review of Systems (u nits unknown) (unknown) (unknown) (no date) (unknown) (unknown) She is concern ed that she has another ectopic . She notes that she has (units unknown) (unknown) (unknown) (no date) (unknown) (unknown) Signed By: (units unknown) (unknown) (unknown) (no date) (unknown) (unknown) Skin: Warm and dry, no rashes (units unknown) (unknown) (unknown) (no date) (unknown) (unknown) Smoking Status : Former smoker (units unknown) (unknown) (unknown) (no date) (unknown) (unknown) Social History (units unknown) (unknown) (unknown) (no date) (unknown) (unknown) Sodium 137 (137-145) mmol/L (units unknown) (unknown) (unknown) (no date) (unknown) (unknown) Sodium Chlorid e (Normal Saline 0.9%) 1,000 mls @ 1,000 mls/hr IV BOLUS ONE (units unknown) (unknown) (unknown) (no date) (unknown) (unknown) Source: patient (uni ts unknown) (unknown) (unknown) (no date) (unknown) (unknown) Stated complai nt: abd pain, nausea, vaginal bleeding, (units unknown) (unknown) (unknown) (no date) (unknown) (unknown) Stop: 06/26/22 17:54 (units unknown) (unknown) (unknown) (no date) (unknown) (unknown) Stop: 06/26/22 19:10 (units unknown) (unknown) (unknown) (no date) (unknown) (unknown) Stop: 06/26/22 20:11 (units unknown) (unknown) (unknown) (no date) (unknown) (unknown) Substance Use Type: marijuana (units unknown) (unknown) (unknown) (no date) (unknown) (unknown) Temperature 97 .8 F 06/26/22 16:46 (units unknown) (unknown) (unknown) (no date) (unknown) (unknown) Temperature 97.8 F ( units unknown) (unknown) (unknown) (no date) (unknown) (unknown) Temperature (units unknown) (unknown) (unknown) (no date) (unknown) (unknown) The left is 2. 7 x 2.2 x 1.9 again with good vascular flow. There is no fluid (units unknown) (unknown) (unknown) (no date) (unknown) (unknown) There 31-year- old woman, G 3p2 with 1 ectopic , history of (units unknown) (unknown) (unknown) (no date) (unknown) (unknown) Time Seen by Provider: 06/26/22 17:01 (units unknown) (unknown) (unknown) (no date) (unknown) (unknown) Total Bilirubi n 0.8 (0.2-1.3) mg/dL (units unknown) (unknown) (unknown) (no date) (unknown) (unknown) Total Protein 8.2 (6.3-8.2) g/dL (units unknown) (unknown) (unknown) (no date) (unknown) (unknown) Treatments: IV fluids, parenteral Toradol, parenteral morphine parenteral (units unknown) (unknown) (unknown) (no date) (unknown) (unknown) US pelvic comp lete Stat (units unknown) (unknown) (unknown) (no date) (unknown) (unknown) Urine Dip (units unknown) (unknown) (unknown) (no date) (unknown) (unknown) Urine Specific [place] 1.005 (units unknown) (unknown) (unknown) (no date) (unknown) (unknown) Urine dip is negative (units unknown) (unknown) (unknown) (no date) (unknown) (unknown) Urine pregnanc y test is negative (units unknown) (unknown) (unknown) (no date) (unknown) (unknown) Vital Signs - 8 hr ( units unknown) (unknown) (unknown) (no date) (unknown) (unknown) Vital Signs (units unknown) (unknown) (unknown) (no date) (unknown) (unknown) Vital signs: (units unknown) (unknown) (unknown) (no date) (unknown) (unknown) WBC 7.7 (4.5-1 1.0) X103/uL (units unknown) (unknown) (unknown) (no date) (unknown) (unknown) [Embedded Imag e Not Available] (units unknown) (unknown) (unknown) (no date) (unknown) (unknown) abnormalities (units unknown) (unknown) (unknown) (no date) (unknown) (unknown) alcohol intake frequency: holidays/special occasions only (units unknown) (unknown) (unknown) (no date) (unknown) (unknown) at 1:00 p.m. t russel is increasing. She is been having some bright red spotting. (units unknown) (unknown) (unknown) (no date) (unknown) (unknown) because it is irritating the right adnexa. There is some slight pink discharge, (units unknown) (unknown) (unknown) (no date) (unknown) (unknown) cephalexin [Fr om Keflex] AdvReac Intermediate Vomiting Verified 06/26/22 16:51 (units unknown) (unknown) (unknown) (no date) (unknown) (unknown) codeine AdvRea c ITCHING Verified 06/26/22 16:51 (units unknown) (unknown) (unknown) (no date) (unknown) (unknown) doxycycline Ad vReac Fatigued Verified 06/26/22 16:51 (units unknown) (unknown) (unknown) (no date) (unknown) (unknown) endometriosis, adenomyosis and polycystic ovarian disease presents with (units unknown) (unknown) (unknown) (no date) (unknown) (unknown) endometriosis, adenomyosis, polycystic ovary disease (units unknown) (unknown) (unknown) (no date) (unknown) (unknown) give a complet e and coherent history. Well-nourished well-developed (units unknown) (unknown) (unknown) (no date) (unknown) (unknown[place] ( units unknown) (unknown) (unknown) (no date) (unknown) (unknown) increasing rig ht low quadrant/pelvic pain. She states that she began feeling (units unknown) (unknown) (unknown) (no date) (unknown) (unknown) no unusual odor. (un its unknown) (unknown) (unknown) (no date) (unknown) (unknown) nortriptyline 05/10/19 (units unknown) (unknown) (unknown) (no date) (unknown) (unknown) nortriptyline (units unknown) (unknown) (unknown) (no date) (unknown) (unknown) not had any fe vers, cough, chills. She did have a normal bowel movement earlier (units unknown) (unknown) (unknown) (no date) (unknown) (unknown) over the true right lower quadrant/expected appendix location. She is to tender (units unknown) (unknown) (unknown) (no date) (unknown) (unknown) oxycodone 5 mg tablet 5 mg PO Q6H PRN pain #14 tabs 02/23/19 (units unknown) (unknown) (unknown) (no date) (unknown) (unknown) oxycodone 5 mg tablet (units unknown) (unknown) (unknown) (no date) (unknown) (unknown) prognosis (units unknown) (unknown) (unknown) (no date) (unknown) (unknown) reviewed (units unknown) (unknown) (unknown) (no date) (unknown) (unknown) size uterus. S he does have cervical motion tenderness however I think that is (units unknown) (unknown) (unknown) (no date) (unknown) (unknown) some twinges i n the right lower quadrant last night but the severe pain started (units unknown) (unknown) (unknown) (no date) (unknown) (unknown) to do a more thorough pelvic exam and I am unable to estimate adnexal mass or (units unknown) (unknown) (unknown) (no date) (unknown) (unknown) today that did not influence her pain and was not bloody. (units unknown) (unknown) (unknown) (no date) (unknown) (unknown) torsion. She h as a 7.2 x 4 x 4.4 cm anteverted uterus with IUD in place. (units unknown) (unknown) Result panel 82 (unknown) (no date) (unknown) (unknown) (no value) (units unknown) (unknown) (unknown) (no date) (unknown) (unknown) [id number] (units unknown) (unknown) (unknown) (no date) (unknown) (unknown) 06/26/22 (units unknown) (unknown) (unknown) (no date) (unknown) (unknown) 1. No definite acute intra-abdominal abnormality. (units unknown) (unknown) (unknown) (no date) (unknown) (unknown) [address] (un its unknown) (unknown) (unknown) (no date) (unknown) (unknown) 2. Mild biliar y ductal dilatation without a calcified obstructing stone or (units unknown) (unknown) (unknown) (no date) (unknown) (unknown) ABDOMEN: (units unknown) (unknown) (unknown) (no date) (unknown) (unknown) Abdominal Node s: No retroperitoneal or mesenteric adenopathy by size criteria. (units unknown) (unknown) (unknown) (no date) (unknown) (unknown) Accession Numb er: [id number] (units unknown) (unknown) (unknown) (no date) (unknown) (unknown) Adrenal Glands : No adrenal nodules. (units unknown) (unknown) (unknown) (no date) (unknown) (unknown) After the administration of IV contrast, axial sections were acquired from the (units unknown) (unknown) (unknown) (no date) (unknown) (unknown) Age/Sex: 31 / F Date of Service: (units unknown) (unknown) (unknown) (no date) (unknown) (unknown) [place] [address] (units unknown) (unknown) (unknown) (no date) (unknown) (unknown) Approved by: Radha Arboleda M.D. on 06/26/2022 at 21:57 (units unknown) (unknown) (unknown) (no date) (unknown) (unknown) Biliary ducts: There is biliary ductal dilatation, with the common bile duct (units unknown) (unknown) (unknown) (no date) (unknown) (unknown) Bladder: Unremarkable. (units unknown) (unknown) (unknown) (no date) (unknown) (unknown) Bones: Visuali zed osseous structures demonstrate no suspicious focal lesions. (units unknown) (unknown) (unknown) (no date) (unknown) (unknown) COMPARISON: [facility], [facility] PELVIC COMPLETE, 06/26/2022, 19:30. (units unknown) (unknown) (unknown) (no date) (unknown) (unknown) CT Scan Report (unit s unknown) (unknown) (unknown) (no date) (unknown) (unknown) : 9 Acct:[id number] (units unknown) (unknown) (unknown) (no date) (unknown) (unknown) Dictated by: Radha Arboleda M.D. on 06/26/2022 at 21:31 (units unknown) (unknown) (unknown) (no date) (unknown) (unknown) FINDINGS: (units unknown) (unknown) (unknown) (no date) (unknown) (unknown) Gallbladder: Surgically absent. (units unknown) (unknown) (unknown) (no date) (unknown) (unknown) Heart: Heart i s normal in size. (units unknown) (unknown) (unknown) (no date) (unknown) (unknown) IMPRESSION: (units unknown) (unknown) (unknown) (no date) (unknown) (unknown) INDICATIONS: RLQ/pelvic pain with NL pelvic us (units unknown) (unknown) (unknown) (no date) (unknown) (unknown) Image quality: Excellent. (units unknown) (unknown) (unknown) (no date) (unknown) (unknown) [facility] (uni ts unknown) (unknown) (unknown) (no date) (unknown) (unknown) Kidneys and Ureters: No hydronephrosis. There is a right extrarenal pelvis. (units unknown) (unknown) (unknown) (no date) (unknown) (unknown) Liver: No mass lesion. (units unknown) (unknown) (unknown) (no date) (unknown) (unknown) Loc: ED (units unknown) (unknown) (unknown) (no date) (unknown) (unknown) Lung bases: Th ere is a 0.4 cm nodule within the right lower lobe on series 5, (units unknown) (unknown) (unknown) (no date) (unknown) (unknown) Miscellaneous: No inguinal hernias are seen. (units unknown) (unknown) (unknown) (no date) (unknown) (unknown) Ordering Provi regan: Kiara Shanks MD (units unknown) (unknown) (unknown) (no date) (unknown) (unknown) PELVIS: (units unknown) (unknown) (unknown) (no date) (unknown) (unknown) PROCEDURE: CT ABDOMEN PELVIS W CON (units unknown) (unknown) (unknown) (no date) (unknown) (unknown) Pancreas: Unremarkable. (units unknown) (unknown) (unknown) (no date) (unknown) (unknown) Patient: Marbella Martínez MR#: [id number] (units unknown) (unknown) (unknown) (no date) (unknown) (unknown) Pelvic Nodes: No enlarged lymph nodes. (units unknown) (unknown) (unknown) (no date) (unknown) (unknown) Pelvic Organs: An IUD appears in appropriate position within the uterus. (units unknown) (unknown) (unknown) (no date) (unknown) (unknown) Peritoneum: No abnormal intraperitoneal fluid. No free air. (units unknown) (unknown) (unknown) (no date) (unknown) (unknown) Procedure: CT abdomen pelvis w con (units unknown) (unknown) (unknown) (no date) (unknown) (unknown) Recommend correlation with laboratory values. (units unknown) (unknown) (unknown) (no date) (unknown) (unknown) Signed (units unknown) (unknown) (unknown) (no date) (unknown) (unknown) Spleen: Normal in size. (units unknown) (unknown) (unknown) (no date) (unknown) (unknown) Stomach and Sharath wel: Stomach, small bowel loops, and colon are normal in caliber (units unknown) (unknown) (unknown) (no date) (unknown) (unknown) TECHNIQUE: (units unknown) (unknown) (unknown) (no date) (unknown) (unknown) Ventral Wall: No hernia. (units unknown) (unknown) (unknown) (no date) (unknown) (unknown) Vessels: Aorta and inferior vena cava are normal in size. (units unknown) (unknown) (unknown) (no date) (unknown) (unknown) and wall (units unknown) (unknown) (unknown) (no date) (unknown) (unknown) and/or kV acco rding to patient size. (units unknown) (unknown) (unknown) (no date) (unknown) (unknown) cholecystectomy. (un its unknown) (unknown) (unknown) (no date) (unknown) (unknown) discrete (units unknown) (unknown) (unknown) (no date) (unknown) (unknown) dose reduction , the following was used: automated exposure control, adjustment (units unknown) (unknown) (unknown) (no date) (unknown) (unknown) image 10. (units unknown) (unknown) (unknown) (no date) (unknown) (unknown) lung bases (units unknown) (unknown) (unknown) (no date) (unknown) (unknown) mass. Findings may reflect sequelae of prior cholecystectomy. (units unknown) (unknown) (unknown) (no date) (unknown) (unknown) measuring (units unknown) (unknown) (unknown) (no date) (unknown) (unknown) obstructing ma ss visualized. The findings suggest sequelae of prior (units unknown) (unknown) (unknown) (no date) (unknown) (unknown) obstructing (units unknown) (unknown) (unknown) (no date) (unknown) (unknown) of mA (units unknown) (unknown) (unknown) (no date) (unknown) (unknown) radiation (units unknown) (unknown) (unknown) (no date) (unknown) (unknown) thickness. The appendix is surgically absent. (units unknown) (unknown) (unknown) (no date) (unknown) (unknown) to the pubic symphysis. Coronal and sagittal reformats were performed. For (units unknown) (unknown) (unknown) (no date) (unknown) (unknown) up to approxim ately 0.9 cm. No calcified common duct stones or discrete (units unknown) (unknown) Result panel 83 (unknown) (no date) (unknown) (unknown) Negative (units unknown) (unknown) (unknown) (no date) (unknown) (unknown) Negative (units unknown) (unknown) Result panel 84 (unknown) (no date) (unknown) (unknown) (no value) (units unknown) (unknown) (unknown) (no date) (unknown) (unknown) <Electronicall y signed by Kiara Shanks MD> (units unknown) (unknown) (unknown) (no date) (unknown) (unknown) 06/26/2206/2606/26/22 Range/Units (units unknown) (unknown) (unknown) (no date) (unknown) (unknown) 06/26/22 16:53 (unit s unknown) (unknown) (unknown) (no date) (unknown) (unknown) 06/26/22 19:08 (unit s unknown) (unknown) (unknown) (no date) (unknown) (unknown) 06/26/22 20:26 (unit s unknown) (unknown) (unknown) (no date) (unknown) (unknown) 06/26/22 20:36 (unit s unknown) (unknown) (unknown) (no date) (unknown) (unknown) 06/26/22 2219 (units unknown) (unknown) (unknown) (no date) (unknown) (unknown) 06/26/22 (units unknown) (unknown) (unknown) (no date) (unknown) (unknown) 1015pm patient was re-evaluated after the ultrasound and was having increasing (units unknown) (unknown) (unknown) (no date) (unknown) (unknown) 16:46 06/26/22 (unit s unknown) (unknown) (unknown) (no date) (unknown) (unknown) 16:53 16:53 20:26 (u nits unknown) (unknown) (unknown) (no date) (unknown) (unknown) 16:57 06/26/22 (unit s unknown) (unknown) (unknown) (no date) (unknown) (unknown) 17:00 06/26/22 (unit s unknown) (unknown) (unknown) (no date) (unknown) (unknown) 17:00 (units unknown) (unknown) (unknown) (no date) (unknown) (unknown) 17:30 06/26/22 (unit s unknown) (unknown) (unknown) (no date) (unknown) (unknown) 17:30 (units unknown) (unknown) (unknown) (no date) (unknown) (unknown) 18:00 06/26/22 (unit s unknown) (unknown) (unknown) (no date) (unknown) (unknown) 18:49 (units unknown) (unknown) (unknown) (no date) (unknown) (unknown) 18:52 06/26/22 (unit s unknown) (unknown) (unknown) (no date) (unknown) (unknown) 19:01 (units unknown) (unknown) (unknown) (no date) (unknown) (unknown) 19:20 06/26/22 (unit s unknown) (unknown) (unknown) (no date) (unknown) (unknown) 19:30 06/26/22 (unit s unknown) (unknown) (unknown) (no date) (unknown) (unknown) 19:30 (units unknown) (unknown) (unknown) (no date) (unknown) (unknown) 20:00 06/26/22 (unit s unknown) (unknown) (unknown) (no date) (unknown) (unknown) 20:00 (units unknown) (unknown) (unknown) (no date) (unknown) (unknown) 20:30 06/26/22 (unit s unknown) (unknown) (unknown) (no date) (unknown) (unknown) 21:02 (units unknown) (unknown) (unknown) (no date) (unknown) (unknown) 21:30 06/26/22 (unit s unknown) (unknown) (unknown) (no date) (unknown) (unknown) 21:57 06/26/22 (unit s unknown) (unknown) (unknown) (no date) (unknown) (unknown) 21:57 (units unknown) (unknown) (unknown) (no date) (unknown) (unknown) 22:00 06/26/22 (unit s unknown) (unknown) (unknown) (no date) (unknown) (unknown) 22:00 (units unknown) (unknown) (unknown) (no date) (unknown) (unknown) 24 hours with dramatic change about 1:00 p.m. getting significantly worse. She (units unknown) (unknown) (unknown) (no date) (unknown) (unknown) 31-year-old wo man with a history of cholecystectomy, appendectomy, endometriosis (units unknown) (unknown) (unknown) (no date) (unknown) (unknown) [id number] (units unknown) (unknown) (unknown) (no date) (unknown) (unknown) 5 mg PO Q6H TN N (Reason: pain) Qty: 14 0RF (units unknown) (unknown) (unknown) (no date) (unknown) (unknown) ALT 15 (<35) IU/L (u nits unknown) (unknown) (unknown) (no date) (unknown) (unknown) AST 22 (14-36) IU/L (units unknown) (unknown) (unknown) (no date) (unknown) (unknown) Abdomen: Soft, very tender in the right lower pelvis and lower quadrant area (units unknown) (unknown) (unknown) (no date) (unknown) (unknown) Activity Restrictions/Additi onal Instructions: (units unknown) (unknown) (unknown) (no date) (unknown) (unknown) Adenomyosis (units unknown) (unknown) (unknown) (no date) (unknown) (unknown) Admin: 3 19:21 Dose: 0.5 mg (units unknown) (unknown) (unknown) (no date) (unknown) (unknown) Admin: 3 20:21 Dose: 0.5 mg (units unknown) (unknown) (unknown) (no date) (unknown) (unknown) Age/Sex: 31 / F (uni ts unknown) (unknown) (unknown) (no date) (unknown) (unknown) Albumin 4.9 (3.5-5.0) g/dL (units unknown) (unknown) (unknown) (no date) (unknown) (unknown) Albumin/Globul in Ratio 1.5 (1.0-2.8) (units unknown) (unknown) (unknown) (no date) (unknown) (unknown) Alkaline Phosphatase 47 (38-126) U/L (units unknown) (unknown) (unknown) (no date) (unknown) (unknown) Allergies (units unknown) (unknown) (unknown) (no date) (unknown) (unknown) Allergy/AdvRea c Type Severity Reaction Status Date / Time (units unknown) (unknown) (unknown) (no date) (unknown) (unknown) BUN 10 (7-17) mg/dL (units unknown) (unknown) (unknown) (no date) (unknown) (unknown) BUN/Creatinine Ratio 13.5 (6-22) (units unknown) (unknown) (unknown) (no date) (unknown) (unknown) Baso # (Auto) 100 (0-100) /uL (units unknown) (unknown) (unknown) (no date) (unknown) (unknown) Baso % (Auto) 0.8 (0-2) % (units unknown) (unknown) (unknown) (no date) (unknown) (unknown) Bedside Urine Bilirubin - Negative (units unknown) (unknown) (unknown) (no date) (unknown) (unknown) Bedside Urine Glucose Negative (units unknown) (unknown) (unknown) (no date) (unknown) (unknown) Bedside Urine Ketone - Negative (units unknown) (unknown) (unknown) (no date) (unknown) (unknown) Bedside Urine Leukocytes - Negative (units unknown) (unknown) (unknown) (no date) (unknown) (unknown) Bedside Urine Nitrite - Negative (units unknown) (unknown) (unknown) (no date) (unknown) (unknown) Bedside Urine Occult Blood - Negative (units unknown) (unknown) (unknown) (no date) (unknown) (unknown) Bedside Urine Protein - Negative (units unknown) (unknown) (unknown) (no date) (unknown) (unknown) Bedside Urine Urobilinogen - Negative (units unknown) (unknown) (unknown) (no date) (unknown) (unknown) Bedside Urine pH 6.0 (units unknown) (unknown) (unknown) (no date) (unknown) (unknown) Bimanual exam: Exquisite tenderness in the right adnexa with less tenderness (units unknown) (unknown) (unknown) (no date) (unknown) (unknown) Blood Pressure 132/87 (units unknown) (unknown) (unknown) (no date) (unknown) (unknown) Blood Pressure 134/80 (units unknown) (unknown) (unknown) (no date) (unknown) (unknown) Blood Pressure 136/76 (units unknown) (unknown) (unknown) (no date) (unknown) (unknown) Blood Pressure 143/83 H (units unknown) (unknown) (unknown) (no date) (unknown) (unknown) Blood Pressure 145/83 H (units unknown) (unknown) (unknown) (no date) (unknown) (unknown) Blood Pressure 145/91 H (units unknown) (unknown) (unknown) (no date) (unknown) (unknown) Blood Pressure 146/88 H (units unknown) (unknown) (unknown) (no date) (unknown) (unknown) Blood Pressure 149/94 H 137/94 H (units unknown) (unknown) (unknown) (no date) (unknown) (unknown) Blood Pressure 160/92 H 06/26/22 16:46 (units unknown) (unknown) (unknown) (no date) (unknown) (unknown) Blood Pressure 160/92 H 140/77 (units unknown) (unknown) (unknown) (no date) (unknown) (unknown) CBC shows norm al white blood cell count and no evidence of acute anemia (units unknown) (unknown) (unknown) (no date) (unknown) (unknown) CC: Right lowe r quadrant/pelvic pain, this is an acute problem uncertain (units unknown) (unknown) (unknown) (no date) (unknown) (unknown) COVID19 -Nasal RAPID Stat (units unknown) (unknown) (unknown) (no date) (unknown) (unknown) CT abdomen pel vis w con Stat (units unknown) (unknown) (unknown) (no date) (unknown) (unknown) Calcium 9.3 (8.4-10.2) mg/dL (units unknown) (unknown) (unknown) (no date) (unknown) (unknown) Carbon Dioxide 25 (22-32) mmol/L (units unknown) (unknown) (unknown) (no date) (unknown) (unknown) Cardiac: Regul ar rate and rhythm no murmurs no bruits (units unknown) (unknown) (unknown) (no date) (unknown) (unknown) Chemistries ar e completely unremarkable (units unknown) (unknown) (unknown) (no date) (unknown) (unknown) Chief complain t: Abdominal Pain (units unknown) (unknown) (unknown) (no date) (unknown) (unknown) Chloride 103 (98-107) mmol/L (units unknown) (unknown) (unknown) (no date) (unknown) (unknown) Clinical Impression: (units unknown) (unknown) (unknown) (no date) (unknown) (unknown) Complete Blood Count AUTO DIFF Stat (units unknown) (unknown) (unknown) (no date) (unknown) (unknown) Complicating co-morbidities: Prior ectopic , ovarian cysts, ovarian (units unknown) (unknown) (unknown) (no date) (unknown) (unknown) Comprehensive Metabolic Panel Stat (units unknown) (unknown) (unknown) (no date) (unknown) (unknown) Course (units unknown) (unknown) (unknown) (no date) (unknown) (unknown) Creatinine 0.7 4 (0.52-1.04) mg/dL (units unknown) (unknown) (unknown) (no date) (unknown) (unknown) : 9 Acct:[id number] (units unknown) (unknown) (unknown) (no date) (unknown) (unknown) Data collected from: patient (units unknown) (unknown) (unknown) (no date) (unknown) (unknown) Date of Servic e: 06/26/22 (units unknown) (unknown) (unknown) (no date) (unknown) (unknown) Departure (units unknown) (unknown) (unknown) (no date) (unknown) (unknown) Differential considered: Ectopic, torsion, bowel obstruction, endomyometritis, (units unknown) (unknown) (unknown) (no date) (unknown) (unknown) Dilaudid (units unknown) (unknown) (unknown) (no date) (unknown) (unknown) Discharge Plan (unit s unknown) (unknown) (unknown) (no date) (unknown) (unknown) Discontinued Medications (units unknown) (unknown) (unknown) (no date) (unknown) (unknown) Discussion: (units unknown) (unknown) (unknown) (no date) (unknown) (unknown) Documented By: [facility]U ( units unknown) (unknown) (unknown) (no date) (unknown) (unknown) Documented By: BS (u nits unknown) (unknown) (unknown) (no date) (unknown) (unknown) Documented By: KEB ( units unknown) (unknown) (unknown) (no date) (unknown) (unknown) Documented By: SB (u nits unknown) (unknown) (unknown) (no date) (unknown) (unknown) ED Orders (units unknown) (unknown) (unknown) (no date) (unknown) (unknown) ER Physician: Kiara Shanks MD (units unknown) (unknown) (unknown) (no date) (unknown) (unknown) Emergency Report (un its unknown) (unknown) (unknown) (no date) (unknown) (unknown) Endometriosis (units unknown) (unknown) (unknown) (no date) (unknown) (unknown) Eos # (Auto) 1 00 (0-450) /uL (units unknown) (unknown) (unknown) (no date) (unknown) (unknown) Eos % (Auto) 0 .8 L (2-4) % (units unknown) (unknown) (unknown) (no date) (unknown) (unknown) Esterase (units unknown) (unknown) (unknown) (no date) (unknown) (unknown) Estimated GFR > 60 (>60) mL/min (units unknown) (unknown) (unknown) (no date) (unknown) (unknown) Exam documente d above, pertinent findings include: (units unknown) (unknown) (unknown) (no date) (unknown) (unknown) Exam (units unknown) (unknown) (unknown) (no date) (unknown) (unknown) Exquisite righ t adnexal tenderness with minor red vaginal spotting (units unknown) (unknown) (unknown) (no date) (unknown) (unknown) Extremities: N o trauma, well perfused (units unknown) (unknown) (unknown) (no date) (unknown) (unknown) Fortunately, y our blood work, ultrasound and CT scan are all quite reassuring. (units unknown) (unknown) (unknown) (no date) (unknown) (unknown) Full and symmetrical air movement (units unknown) (unknown) (unknown) (no date) (unknown) (unknown) General (units unknown) (unknown) (unknown) (no date) (unknown) (unknown) General: Healt hy appearing, in moderate distress secondary to pain.. Able to (units unknown) (unknown) (unknown) (no date) (unknown) (unknown) Globulin 3.3 (1.7-4.1) g/dL (units unknown) (unknown) (unknown) (no date) (unknown) (unknown) Glucose 97 (70 -100) mg/dL (units unknown) (unknown) (unknown) (no date) (unknown) (unknown) HEENT: Moist m ucous membranes, normal sclera with reactive pupils, (units unknown) (unknown) (unknown) (no date) (unknown) (unknown) HPI - General Adult (units unknown) (unknown) (unknown) (no date) (unknown) (unknown) HPI narrative: (unit s unknown) (unknown) (unknown) (no date) (unknown) (unknown) Hct 39.8 (36-46) % ( units unknown) (unknown) (unknown) (no date) (unknown) (unknown) Hgb 13.8 (12.0-16.0) g/dL (units unknown) (unknown) (unknown) (no date) (unknown) (unknown) History of Pre sent Illness (units unknown) (unknown) (unknown) (no date) (unknown) (unknown) Home Medications (un its unknown) (unknown) (unknown) (no date) (unknown) (unknown) Hydromorphone HCl (Hydromorphone 0.5 Mg Inj) 0.5 mg IV Q15MIN PRN (units unknown) (unknown) (unknown) (no date) (unknown) (unknown) Hydromorphone HCl (Hydromorphone 1 Mg Inj) 1 mg IV NOW ONE (units unknown) (unknown) (unknown) (no date) (unknown) (unknown) I am impressed with the amount pain that you are having, I am sorry that you are (units unknown) (unknown) (unknown) (no date) (unknown) (unknown) I am not findi ng any evidence for significant infection, ovarian torsion, you (units unknown) (unknown) (unknown) (no date) (unknown) (unknown) If you find th at you are getting worse or develop any new symptoms, please feel (units unknown) (unknown) (unknown) (no date) (unknown) (unknown) Imaging studie s independently reviewed: Pelvic ultrasound does not show a (units unknown) (unknown) (unknown) (no date) (unknown) (unknown) Initial Vital Signs (units unknown) (unknown) (unknown) (no date) (unknown) (unknown) Initial Vital Signs: (units unknown) (unknown) (unknown) (no date) (unknown) (unknown) Instructions: DI for Pelvic Pain (units unknown) (unknown) (unknown) (no date) (unknown) (unknown) [place] [address] (units unknown) (unknown) (unknown) (no date) (unknown) (unknown) Ketorolac Tromethamine (Ketorolac 30 Mg/Ml Vial) 15 mg IV NOW ONE (units unknown) (unknown) (unknown) (no date) (unknown) (unknown) Lab Data (units unknown) (unknown) (unknown) (no date) (unknown) (unknown) Lab Results (units unknown) (unknown) (unknown) (no date) (unknown) (unknown) Lab Test resul ts independently reviewed as above. Pertinent findings: (units unknown) (unknown) (unknown) (no date) (unknown) (unknown) Labs: (units unknown) (unknown) (unknown) (no date) (unknown) (unknown) Last Admin: 06/26/22 16:57 Dose: 4 mg (units unknown) (unknown) (unknown) (no date) (unknown) (unknown) Last Admin: 06/26/22 18:03 Dose: 4 mg (units unknown) (unknown) (unknown) (no date) (unknown) (unknown) Last Admin: 06/26/22 19:21 Dose: 1,000 mls/hr (units unknown) (unknown) (unknown) (no date) (unknown) (unknown) Last Admin: 06/26/22 19:22 Dose: 15 mg (units unknown) (unknown) (unknown) (no date) (unknown) (unknown) Last Admin: 06/26/22 20:45 Dose: 0.5 mg (units unknown) (unknown) (unknown) (no date) (unknown) (unknown) Last Admin: 06/26/22 20:49 Dose: Not Given (units unknown) (unknown) (unknown) (no date) (unknown) (unknown) Lipase 73 (23- 300) U/L (units unknown) (unknown) (unknown) (no date) (unknown) (unknown) Lipase Stat (units unknown) (unknown) (unknown) (no date) (unknown) (unknown) Lymph # (Auto) 1600 (6728-7910) /uL (units unknown) (unknown) (unknown) (no date) (unknown) (unknown) Lymph % (Auto) 21.2 L (25-40) % (units unknown) (unknown) (unknown) (no date) (unknown) (unknown) MCH 31.9 (26-34) PG (units unknown) (unknown) (unknown) (no date) (unknown) (unknown) MCHC 34.8 (30-36) % (units unknown) (unknown) (unknown) (no date) (unknown) (unknown) MCV 91.8 (80-1 00) fL (units unknown) (unknown) (unknown) (no date) (unknown) (unknown) MDM Narrative (units unknown) (unknown) (unknown) (no date) (unknown) (unknown) Medical Decisi on Making (units unknown) (unknown) (unknown) (no date) (unknown) (unknown) Medical Histor y (Updated 06/26/22 @ 22:19 by Kiara Shanks MD) (units unknown) (unknown) (unknown) (no date) (unknown) (unknown) Medical decisi on making narrative: (units unknown) (unknown) (unknown) (no date) (unknown) (unknown) Medical record s reviewed: ER visit from April of 2019 for ovarian cyst is (units unknown) (unknown) (unknown) (no date) (unknown) (unknown) Medication Instructions Recorded Confirmed (units unknown) (unknown) (unknown) (no date) (unknown) (unknown) Medication Instructions Recorded (units unknown) (unknown) (unknown) (no date) (unknown) (unknown) Mode of arriva l: Ambulatory (units unknown) (unknown) (unknown) (no date) (unknown) (unknown) [place] # (Auto) 400 (0-900) /uL (units unknown) (unknown) (unknown) (no date) (unknown) (unknown) [place] % (Auto) 4.8 (3-14) % (units unknown) (unknown) (unknown) (no date) (unknown) (unknown) Morphine Sulfa te (Morphine 4 Mg/Ml Inj) 4 mg IV NOW ONE (units unknown) (unknown) (unknown) (no date) (unknown) (unknown) Narrative: (units unknown) (unknown) (unknown) (no date) (unknown) (unknown) Neurologic: Gr ossly neurologically intact with no obvious asymmetries or (units unknown) (unknown) (unknown) (no date) (unknown) (unknown) Neut # (Auto) 5600 (9127-1056) /uL (units unknown) (unknown) (unknown) (no date) (unknown) (unknown) Neut % (Auto) 72.4 (50-75) % (units unknown) (unknown) (unknown) (no date) (unknown) (unknown) No Action (units unknown) (unknown) (unknown) (no date) (unknown) (unknown) ONE (units unknown) (unknown) (unknown) (no date) (unknown) (unknown) Ondansetron HC l (Ondansetron 4 Mg Odt) 4 mg PO NOW PRN (units unknown) (unknown) (unknown) (no date) (unknown) (unknown) Ondansetron HC l (Ondansetron 4 Mg/2 Ml Inj) 4 mg IV NOW ONE (units unknown) (unknown) (unknown) (no date) (unknown) (unknown) Ondansetron HC l (Ondansetron 4 Mg/2 Ml Inj) 4 mg IV NOW PRN (units unknown) (unknown) (unknown) (no date) (unknown) (unknown) Ordered: (units unknown) (unknown) (unknown) (no date) (unknown) (unknown) Orders (units unknown) (unknown) (unknown) (no date) (unknown) (unknown) Ovarian cyst (units unknown) (unknown) (unknown) (no date) (unknown) (unknown) Ovaries show a right-sided 1 measuring 3.2 x 4.1 x 1.8 with good vascular flow. (units unknown) (unknown) (unknown) (no date) (unknown) (unknown) Oxycodone/Acet amino phen (Oxycodone/Acetamin ophen 5/325 Tablet) 1 tab PO NOW ONE (units unknown) (unknown) (unknown) (no date) (unknown) (unknown) Oxycodone/Acet amino phen (Oxycodone/Apap 5/325 Prepack) 1 bottle MISC SEEINSTR (units unknown) (unknown) (unknown) (no date) (unknown) (unknown) Oxygen Deliver y Method Room Air 06/26/22 16:46 (units unknown) (unknown) (unknown) (no date) (unknown) (unknown) Oxygen Deliver y Method Room Air (units unknown) (unknown) (unknown) (no date) (unknown) (unknown) Oxygen Deliver y Method (units unknown) (unknown) (unknown) (no date) (unknown) (unknown) PRN Reason: Na usea And Vomiting (units unknown) (unknown) (unknown) (no date) (unknown) (unknown) PRN Reason: Pain, (u nits unknown) (unknown) (unknown) (no date) (unknown) (unknown) Patient Disposition: Home (units unknown) (unknown) (unknown) (no date) (unknown) (unknown) Patient History (uni ts unknown) (unknown) (unknown) (no date) (unknown) (unknown) Patient: Marbella Martínez MR#: [id number] (units unknown) (unknown) (unknown) (no date) (unknown) (unknown) Pertinent posi tive and negative findings as per HPI (units unknown) (unknown) (unknown) (no date) (unknown) (unknown) Please do sche dule follow-up with your OBGYN. (units unknown) (unknown) (unknown) (no date) (unknown) (unknown) Plt Count 367 (150-400) X103/uL (units unknown) (unknown) (unknown) (no date) (unknown) (unknown) Point of Care Testing (units unknown) (unknown) (unknown) (no date) (unknown) (unknown) Point of care testing: (units unknown) (unknown) (unknown) (no date) (unknown) (unknown) Polycystic ova ry disease (units unknown) (unknown) (unknown) (no date) (unknown) (unknown) Potassium 3.9 (3.4-5.1) mmol/L (units unknown) (unknown) (unknown) (no date) (unknown) (unknown) Test Results Negative (units unknown) (unknown) (unknown) (no date) (unknown) (unknown) Prescriptions: (unit s unknown) (unknown) (unknown) (no date) (unknown) (unknown) Previous Rx's (units unknown) (unknown) (unknown) (no date) (unknown) (unknown) Psych: [place] t[place], appropriate insight and affect (units unknown) (unknown) (unknown) (no date) (unknown) (unknown) Pulse Oximetry 100 ( units unknown) (unknown) (unknown) (no date) (unknown) (unknown) Pulse Oximetry 96 (u nits unknown) (unknown) (unknown) (no date) (unknown) (unknown) Pulse Oximetry 97 06/26/22 16:46 (units unknown) (unknown) (unknown) (no date) (unknown) (unknown) Pulse Oximetry 97 99 (units unknown) (unknown) (unknown) (no date) (unknown) (unknown) Pulse Oximetry 98 100 (units unknown) (unknown) (unknown) (no date) (unknown) (unknown) Pulse Oximetry 99 98 (units unknown) (unknown) (unknown) (no date) (unknown) (unknown) Pulse Oximetry 99 99 (units unknown) (unknown) (unknown) (no date) (unknown) (unknown) Pulse Oximetry 99 (u nits unknown) (unknown) (unknown) (no date) (unknown) (unknown) Pulse Rate 71 75 (un its unknown) (unknown) (unknown) (no date) (unknown) (unknown) Pulse Rate 73 (units unknown) (unknown) (unknown) (no date) (unknown) (unknown) Pulse Rate 75 82 (un its unknown) (unknown) (unknown) (no date) (unknown) (unknown) Pulse Rate 75 (units unknown) (unknown) (unknown) (no date) (unknown) (unknown) Pulse Rate 76 85 (un its unknown) (unknown) (unknown) (no date) (unknown) (unknown) Pulse Rate 77 80 (un its unknown) (unknown) (unknown) (no date) (unknown) (unknown) Pulse Rate 80 84 (un its unknown) (unknown) (unknown) (no date) (unknown) (unknown) Pulse Rate 84 83 (un its unknown) (unknown) (unknown) (no date) (unknown) (unknown) Pulse Rate 89 06/26/22 16:46 (units unknown) (unknown) (unknown) (no date) (unknown) (unknown) Pulse Rate 89 84 (un its unknown) (unknown) (unknown) (no date) (unknown) (unknown) RBC 4.34 (4.0- 5.2) X106/uL (units unknown) (unknown) (unknown) (no date) (unknown) (unknown) RDW 13.0 (11.6-14.8) % (units unknown) (unknown) (unknown) (no date) (unknown) (unknown) Re-evaluations: (uni ts unknown) (unknown) (unknown) (no date) (unknown) (unknown) Related Data (units unknown) (unknown) (unknown) (no date) (unknown) (unknown) Respiratory Ra te 14 23 (units unknown) (unknown) (unknown) (no date) (unknown) (unknown) Respiratory Rate 15 (units unknown) (unknown) (unknown) (no date) (unknown) (unknown) Respiratory Ra te 18 06/26/22 16:46 (units unknown) (unknown) (unknown) (no date) (unknown) (unknown) Respiratory Rate 18 (units unknown) (unknown) (unknown) (no date) (unknown) (unknown) Respiratory Ra te 23 26 H (units unknown) (unknown) (unknown) (no date) (unknown) (unknown) Respiratory Rate 23 (units unknown) (unknown) (unknown) (no date) (unknown) (unknown) Respiratory Ra te 24 14 (units unknown) (unknown) (unknown) (no date) (unknown) (unknown) Respiratory Ra te 28 H (units unknown) (unknown) (unknown) (no date) (unknown) (unknown) Respiratory Rate (un its unknown) (unknown) (unknown) (no date) (unknown) (unknown) Respiratory: L ungs are clear to auscultation, no wheezing no rales no rhonchi. (units unknown) (unknown) (unknown) (no date) (unknown) (unknown) Review of Systems (u nits unknown) (unknown) (unknown) (no date) (unknown) (unknown) SARS-CoV-2 (PC R) Negative (Negative) (units unknown) (unknown) (unknown) (no date) (unknown) (unknown) She is concern ed that she has another ectopic . She notes that she has (units unknown) (unknown) (unknown) (no date) (unknown) (unknown) Signed By: (units unknown) (unknown) (unknown) (no date) (unknown) (unknown) Skin: Warm and dry, no rashes (units unknown) (unknown) (unknown) (no date) (unknown) (unknown) Smoking Status : Former smoker (units unknown) (unknown) (unknown) (no date) (unknown) (unknown) Social History (units unknown) (unknown) (unknown) (no date) (unknown) (unknown) Sodium 137 (137-145) mmol/L (units unknown) (unknown) (unknown) (no date) (unknown) (unknown) Sodium Chlorid e (Normal Saline 0.9%) 1,000 mls @ 1,000 mls/hr IV BOLUS ONE (units unknown) (unknown) (unknown) (no date) (unknown) (unknown) Source: patient (uni ts unknown) (unknown) (unknown) (no date) (unknown) (unknown) Stand Alone Fo nahomy: Patient Portal/API (units unknown) (unknown) (unknown) (no date) (unknown) (unknown) Stated complai nt: abd pain, nausea, vaginal bleeding, (units unknown) (unknown) (unknown) (no date) (unknown) (unknown) Stop: 06/26/22 17:54 (units unknown) (unknown) (unknown) (no date) (unknown) (unknown) Stop: 06/26/22 19:10 (units unknown) (unknown) (unknown) (no date) (unknown) (unknown) Stop: 06/26/22 20:11 (units unknown) (unknown) (unknown) (no date) (unknown) (unknown) Stop: 06/26/22 20:37 (units unknown) (unknown) (unknown) (no date) (unknown) (unknown) Stop: 06/26/22 22:07 (units unknown) (unknown) (unknown) (no date) (unknown) (unknown) Stop: 06/26/22 22:11 (units unknown) (unknown) (unknown) (no date) (unknown) (unknown) Stop: 06/26/22 22:12 (units unknown) (unknown) (unknown) (no date) (unknown) (unknown) Substance Use Type: marijuana (units unknown) (unknown) (unknown) (no date) (unknown) (unknown) Temperature 97 .8 F 06/26/22 16:46 (units unknown) (unknown) (unknown) (no date) (unknown) (unknown) Temperature 97.8 F ( units unknown) (unknown) (unknown) (no date) (unknown) (unknown) Temperature (units unknown) (unknown) (unknown) (no date) (unknown) (unknown) Thank you for coming in today (units unknown) (unknown) (unknown) (no date) (unknown) (unknown) The left is 2. 7 x 2.2 x 1.9 again with good vascular flow. There is no fluid (units unknown) (unknown) (unknown) (no date) (unknown) (unknown) There 31-year- old woman, G 3p2 with 1 ectopic , history of (units unknown) (unknown) (unknown) (no date) (unknown) (unknown) Time Seen by Provider: 06/26/22 17:01 (units unknown) (unknown) (unknown) (no date) (unknown) (unknown) Total Bilirubi n 0.8 (0.2-1.3) mg/dL (units unknown) (unknown) (unknown) (no date) (unknown) (unknown) Total Protein 8.2 (6.3-8.2) g/dL (units unknown) (unknown) (unknown) (no date) (unknown) (unknown) Treatments: IV fluids, parenteral Toradol, parenteral morphine parenteral (units unknown) (unknown) (unknown) (no date) (unknown) (unknown) US pelvic comp lete Stat (units unknown) (unknown) (unknown) (no date) (unknown) (unknown) Urine Dip (units unknown) (unknown) (unknown) (no date) (unknown) (unknown) Urine Specific [place] 1.005 (units unknown) (unknown) (unknown) (no date) (unknown) (unknown) Urine dip is negative (units unknown) (unknown) (unknown) (no date) (unknown) (unknown) Urine pregnanc y test is negative (units unknown) (unknown) (unknown) (no date) (unknown) (unknown) Using 400 mg o f ibuprofen (2 rubg-nqj-mqgiyow pills) and 1 Tylenol every 6 (units unknown) (unknown) (unknown) (no date) (unknown) (unknown) Uterus, adenomyosis, Pelvic pain (units unknown) (unknown) (unknown) (no date) (unknown) (unknown) Vital Signs - 8 hr ( units unknown) (unknown) (unknown) (no date) (unknown) (unknown) Vital Signs (units unknown) (unknown) (unknown) (no date) (unknown) (unknown) Vital signs: (units unknown) (unknown) (unknown) (no date) (unknown) (unknown) WBC 7.7 (4.5-1 1.0) X103/uL (units unknown) (unknown) (unknown) (no date) (unknown) (unknown) We will give h er 4 tablets of Percocet to take home and use over the next 12-24 (units unknown) (unknown) (unknown) (no date) (unknown) (unknown) [Embedded Imag e Not Available] (units unknown) (unknown) (unknown) (no date) (unknown) (unknown) abnormalities (units unknown) (unknown) (unknown) (no date) (unknown) (unknown) adenomyosis (units unknown) (unknown) (unknown) (no date) (unknown) (unknown) alcohol intake frequency: holidays/special occasions only (units unknown) (unknown) (unknown) (no date) (unknown) (unknown) and adenomyosi s who presents with severe right adnexal pain for approximately (units unknown) (unknown) (unknown) (no date) (unknown) (unknown) are not pregna nt. There is no sign of abscess in your abdomen or other reasons (units unknown) (unknown) (unknown) (no date) (unknown) (unknown) are quite similar. ( units unknown) (unknown) (unknown) (no date) (unknown) (unknown) at 1:00 p.m. t russel is increasing. She is been having some bright red spotting. (units unknown) (unknown) (unknown) (no date) (unknown) (unknown) because it is irritating the right adnexa. 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 (units unknown) (unknown) (unknown) (no date) (unknown) (unknown) endometriosis, adenomyosis and polycystic ovarian disease presents with (units unknown) (unknown) (unknown) (no date) (unknown) (unknown) for hospitalization, further workup or additional imaging. (units unknown) (unknown) (unknown) (no date) (unknown) (unknown) free to return to the emergency department for further evaluation. (units unknown) (unknown) (unknown) (no date) (unknown) (unknown) give a complet e and coherent history. Well-nourished well-developed (units unknown) (unknown) (unknown) (no date) (unknown) (unknown) going to be do ne. She is re-examined now and finding that the pain medicine (units unknown) (unknown) (unknown) (no date) (unknown) (unknown) have indometha daren and oral Dilaudid available at home for use should she need (units unknown) (unknown) (unknown) (no date) (unknown) (unknown) helps for shor t period of time but it is recurring. Reviewed with her findings (units unknown) (unknown) (unknown) (no date) (unknown) (unknown) hours can be v trang helpful in controlling pain. Do not combined ibuprofen with (units unknown) (unknown) (unknown) (no date) (unknown) (unknown) hours if neede d. She will follow-up with her OBGYN in [place] if things (units unknown) (unknown) (unknown) (no date) (unknown) (unknown[place] ( units unknown) (unknown) (unknown) (no date) (unknown) (unknown) increasing rig ht low quadrant/pelvic pain. She states that she began feeling (units unknown) (unknown) (unknown) (no date) (unknown) (unknown) inflammatory disease. All of these findings including reassuring blood work is (units unknown) (unknown) (unknown) (no date) (unknown) (unknown) is having adore r red spotting with this. Labs ultrasound and CT scan are all (units unknown) (unknown) (unknown) (no date) (unknown) (unknown) is something related to her chronic adenomyosis or endometriosis. She does (units unknown) (unknown) (unknown) (no date) (unknown) (unknown) it. At this po int I believe she is safe for discharge home. She does have a (units unknown) (unknown) (unknown) (no date) (unknown) (unknown) no unusual odor. (un its unknown) (unknown) (unknown) (no date) (unknown) (unknown) nortriptyline 05/10/19 (units unknown) (unknown) (unknown) (no date) (unknown) (unknown) nortriptyline (units unknown) (unknown) (unknown) (no date) (unknown) (unknown) not had any fe vers, cough, chills. She did have a normal bowel movement earlier (units unknown) (unknown) (unknown) (no date) (unknown) (unknown) obstruction, ovarian torsion. She is not . I do not suspect pelvic (units unknown) (unknown) (unknown) (no date) (unknown) (unknown) of the CT scan and plans for discharge home. (units unknown) (unknown) (unknown) (no date) (unknown) (unknown) over the true right lower quadrant/expected appendix location. She is to tender (units unknown) (unknown) (unknown) (no date) (unknown) (unknown) oxycodone 5 mg tablet 5 mg PO Q6H PRN pain #14 tabs 02/23/19 (units unknown) (unknown) (unknown) (no date) (unknown) (unknown) oxycodone 5 mg tablet (units unknown) (unknown) (unknown) (no date) (unknown) (unknown) pain. She was given additional narcotic medication and told that a CT scan was (units unknown) (unknown) (unknown) (no date) (unknown) (unknown) prognosis (units unknown) (unknown) (unknown) (no date) (unknown) (unknown) reassuring. Th ere is no evidence for life-threatening abscess, bowel (units unknown) (unknown) (unknown) (no date) (unknown) (unknown) reviewed with her. She understands and together we both agreed that this likely (units unknown) (unknown) (unknown) (no date) (unknown) (unknown) reviewed (units unknown) (unknown) (unknown) (no date) (unknown) (unknown) size uterus. S he does have cervical motion tenderness however I think that is (units unknown) (unknown) (unknown) (no date) (unknown) (unknown) some twinges i n the right lower quadrant last night but the severe pain started (units unknown) (unknown) (unknown) (no date) (unknown) (unknown) suffering so much. ( units unknown) (unknown) (unknown) (no date) (unknown) (unknown) the indomethac in that you have available at home, choose 1 or the other as they (units unknown) (unknown) (unknown) (no date) (unknown) (unknown) to do a more thorough pelvic exam and I am unable to estimate adnexal mass or (units unknown) (unknown) (unknown) (no date) (unknown) (unknown) today that did not influence her pain and was not bloody. (units unknown) (unknown) (unknown) (no date) (unknown) (unknown) torsion, endometriosis, adenomyosis, polycystic ovary disease (units unknown) (unknown) (unknown) (no date) (unknown) (unknown) torsion. She h as a 7.2 x 4 x 4.4 cm anteverted uterus with IUD in place. (units unknown) (unknown) (unknown) (no date) (unknown) (unknown) worsen and ret urn to the ER if pain is uncontrollable. She is safe for (units unknown) (unknown) Social History date description facility 2022-06-26 00:00 Ex-smoker (finding) [facility] Vital Signs date measurement value units 2022-06-26 00:00 BMI 30.9 kg/m2 2022-06-26 00:00 BP_diastolic 91 mmHg 2022-06-26 00:00 BP_systolic 145 mmHg 2022-06-26 00:00 heart_rate 75 /min 2022-06-26 00:00 height_metric 162.56 cm 2022-06-26 00:00 height_standard 64 in 2022-06-26 00:00 o2_saturation 99 % 2022-06-26 00:00 respiration_rate 23 /min 2022-06-26 00:00 temperature_metric 36.56 C 2022-06-26 00:00 temperature_standard 97.8 F 2022-06-26 00:00 weight_metric 81.64 kg 2022-06-26 00:00 weight_standard 179.99 lb
[2022-09-05 14:48] LABS: ALBUMIN 4.5 g/dL (3.2-5.5); ALBUMIN/GLOBULIN RATIO 1.4 (1.0-2.2); BILIRUBIN,TOTAL 0.7 mg/dL (0.2-1.0); CREATININE 0.8 mg/dL (0.4-1.0); POTASSIUM 3.3 mmol/L (3.5-5.0); TOTAL PROTEIN 7.8 g/dL (6.7-8.2)
[2022-09-05] MEDS ORDERED: iohexoL-300 100 ML VIAL ONE (15:13)
[2022-09-05] MEDS ORDERED: iohexoL-300 100 ML VIAL IVP ONE (16:17)
--- NOTE | 2022-09-05 16:32 | CT Report ---
PROCEDURE: ABDOMEN/PELVIS W INDICATIONS: RLQ pain; previous appy; hx of endometriosis; CONTRAST: 100ml Omnipaque 300 TECHNIQUE: After the administration of IV contrast, 5 mm thick sections acquired from the diaphragms to the symp hysis. 5 mm thick coronal and sagittal reformats were acquired. For radiation dose reduction, the f ollowing was used: automated exposure control, adjustment of mA and/or kV according to patient size. COMPARISON: CT of abdomen and pelvis dated 01/18/2022 and pelvic ultrasound dated 05/29/2022 FINDINGS: Image quality: Excellent. Lung bases and heart: Unremarkable. Liver: No solid mass. Gallbladder and biliary tree: Gallbladder is surgically absent. No biliary ductal dilatation. Spleen: There is mild splenomegaly. Pancreas: No pancreatic ductal dilation. Adrenals: No adrenal nodule. Kidneys and ureters: No hydronephrosis. No renal cystic lesion which requires follow up. No solid mas s. Bowel and peritoneum: No bowel distension. No pathologic free fluid. Surgical clips are noted in righ t lower quadrant abdomen likely represent prior appendectomy. No abscess collection. There is questio nable ascending colon and transverse colon wall thickening. Mild descending colon wall thickening is also likely present. Lymph nodes: No central or retroperitoneal adenopathy. Vessels: No infrarenal aortic aneurysm. PELVIS Reproductive organs: Intrauterine device is noted within the central endometrial location. No abnorma lity is seen in bilateral adnexa. Bladder: No abnormal wall thickening, accounting for underdistension. Pelvic lymph nodes: No pelvic adenopathy by size criteria. Bones: No aggressive osseous abnormality. Other: No significant ventral or inguinal hernia. IMPRESSION: 1. Finding is concerning for low-grade colitis versus under distention. No abscess collection. Prior appendectomy. No free fluid of free air. 2. No obstructing renal stones or hydronephrosis. Normal-appearing urinary bladder. 3. Normal-appearing uterus and bilateral adnexa with intrauterine device in place. 4. Mild splenomegaly, no discrete splenic lesion. Reviewed by: Beto Odell MD on 09/05/2022 4:30 PM PDT Approved by: Beto Odell MD on 09/05/2022 4:30 PM PDT Station ID: [id number]
[2022-09-05] MEDS ORDERED: HYDROmorphone 1 MG/ML CARPUJECT IM STA (16:59)
[2022-09-05] MEDS ORDERED: CHERRY SYRUP 10 ML UDC PO ONE (17:00)
[2022-09-05] MEDS ORDERED: DEXAMETHASONE 10 MG/ML VIAL PO STA (17:00)
[2022-09-05 17:27] VITALS: BP 124/84
== END 2022-09-05 17:24 | disposition home or self-care (01) ==
LOC: ED 13:20
DX: K52.9 Noninfective gastroenteritis and colitis, unspecified (principal)
CPT/HCPCS: 36415; 74177; 80053; 81003; 81025; 83690; 85025; 96374; 96375; 96376; 99283; 99284; A9270; J1170; Q9967; 81001; 87086

== ENCOUNTER 2022-10-06 19:10 | Emergency (ER) | payer BC, OTHER ==
[2022-10-06 19:39] LABS: BASOPHILS % (AUTO) 0.4 %; EOSINOPHILS # (AUTO) 0.1 10^3/uL (0.0-0.7); EOSINOPHILS % (AUTO) 1.5 %; HCT - HEMATOCRIT 37.8 % (37.0-47.0); HGB - HEMOGLOBIN 12.6 g/dL (12.0-16.0); LYMPHOCYTES # (AUTO) 1.9 10^3/uL (1.5-3.5); LYMPHOCYTES % (AUTO) 27.3 %; MEAN CORPUSCULAR HEMOGLOBIN 31.1 pg (27.0-31.0); MEAN CORPUSCULAR HGB CONC 33.3 g/dL (32.0-36.0); MEAN CORPUSCULAR VOLUME 93.3 fL (81.0-99.0); MONOCYTES # (AUTO) 0.5 10^3/uL (0.0-1.0); MONOCYTES % (AUTO) 7.3 %; NEUTROPHILS # (AUTO) 4.3 10^3/uL (1.5-6.6); NEUTROPHILS % (AUTO) 63.2 %; PLT - PLATELET COUNT 298 10^3/uL (130-450); RED BLOOD COUNT 4.05 10^6/uL (4.20-5.40); RED CELL DISTRIBUTION WIDTH 11.9 % (12.0-15.0); WHITE BLOOD COUNT 6.8 x10^3/uL (4.8-10.8)
[2022-10-06 19:53] LABS: ALBUMIN 4.5 g/dL (3.2-5.5); ALBUMIN/GLOBULIN RATIO 1.4 (1.0-2.2); BILIRUBIN,TOTAL 0.4 mg/dL (0.2-1.0); CALCIUM 9.4 mg/dL (8.5-10.3); CREATININE 0.7 mg/dL (0.4-1.0); POTASSIUM 3.6 mmol/L (3.5-5.0); TOTAL PROTEIN 7.8 g/dL (6.7-8.2)
[2022-10-06] MEDS ORDERED: HYDROmorphone 1 MG/ML CARPUJECT IVP STA ×2 (19:54→21:01)
[2022-10-06] MEDS ORDERED: SODIUM CHLORIDE 0.9% 1,000 ML IV STA (19:54)
[2022-10-06] MEDS ORDERED: ONDANSETRON 4 MG/2 ML VIAL IVP STA (19:54)
--- NOTE | 2022-10-06 20:03 | ED Physician Documentation ---
PD HPI ABD PAIN - Stated complaint Stated Complaint: ABD PX,VOMITING - Chief complaint Chief Complaint: Abd Pain - History obtained from History obtained from: Patient - Additional information Additional information: 32-year-old woman with history of PCOS, endometriosis and adenomyosis as well as chronic pelvic pain presents with about a week and a half of right flank pain now radiating to the right groin associated with blood in the urine and some fevers. She also feels like her urethra spasming. CT done about a month ago to the day showed may be a low-grade colitis. There was no mention of nephroliths or other abnormality. She has no appendix, no gallbladder. She has had a in the past. 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 : Other HEENT: Chronic vision loss Psych: ADD/ADHD, Post traumatic stress disorder Musculoskeletal: Chronic back pain Derm: Eczema - Past Surgical History Past Surgical History: Yes General: Cholecystectomy, Appendectomy, Colonoscopy /MICROBIOLOGY LAB ANALYST: section, Other - Present Medications Home Medications: Ambulatory Orders Medication Instructions Recorded Confirmed Ondansetron Odt [Zofran] 4 mg TL Q6H PRN #10 tablet 05/07/22 07/17/22 Dextroamphetamine/Amphetamine 15 mg PO DAILY 07/13/22 07/17/22 [Adderall 15 mg Tablet] HYDROmorphone [Dilaudid] 2 mg PO Q4H PRN 07/13/22 07/17/22 Rizatriptan Benzoate [Rizatriptan] 10 mg PO PRN PRN 07/13/22 07/17/22 oxyCODONE [Roxicodone] 5 mg PO Q4H PRN #15 tablet 07/17/22 - Allergies Allergies/Adverse Reactions: Allergies Allergy/AdvReac Type Severity Reaction Status Date / Time cephalexin [From Keflex] Allergy Emesis Verified 10/06/22 19:44 doxycycline Allergy Emesis Verified 10/06/22 19:44 codeine AdvReac Itching Verified 10/06/22 19:44 morphine AdvReac Itching Verified 10/06/22 19:44 - Social History Does the pt smoke?: No Smoking Status: Never smoker Does the pt drink ETOH?: No Does the pt have substance abuse?: No - Immunizations Immunizations are current?: Yes - POLST Patient has POLST: No PD ED PE NORMAL - Vitals Vital signs reviewed: Yes - General General: Alert and oriented X 3, Other (Intermittently uncomfortable) - Abdomen Abdomen: Normal bowel sounds, Soft, Non tender - Neuro Neuro: Alert and oriented X 3, Normal speech Results - Vitals Vitals: Vital Signs - 24 hr 10/06/22 10/06/22 19:27 21:30 Temperature 36.4 C L Heart Rate 76 71 Respiratory 18 16 Rate Blood Pressure 138/54 H 116/93 H O2 Saturation 100 97 Oxygen O2 Source Room air - Labs Labs: Laboratory Tests 10/06/22 10/06/22 10/06/22 19:36 19:36 20:18 WBC 6.8 RBC 4.05 L Hgb 12.6 Hct 37.8 MCV 93.3 MCH 31.1 H MCHC 33.3 RDW 11.9 L Plt Count 298 MPV 9.0 Neut # (Auto) 4.3 Lymph # (Auto) 1.9 [place] # (Auto) 0.5 Eos # (Auto) 0.1 Baso # (Auto) 0.0 Absolute Nucleated RBC 0.00 Nucleated RBC % 0.0 Sodium 139 Potassium 3.6 Chloride 103 Carbon Dioxide 27 Anion Gap 9.0 BUN 9 Creatinine 0.7 Estimated GFR (MDRD) 96 Glucose 93 Calcium 9.4 Total Bilirubin 0.4 AST 15 ALT 12 Alkaline Phosphatase 41 L Total Protein 7.8 Albumin 4.5 Globulin 3.3 Albumin/Globulin Ratio 1.4 Lipase 42 Urine Color YELLOW Urine Clarity CLEAR Urine pH 6.0 Ur Specific [place] <=1.005 Urine Protein NEGATIVE Urine Glucose (UA) NEGATIVE Urine Ketones NEGATIVE Urine Occult Blood NEGATIVE Urine Nitrite NEGATIVE Urine Bilirubin NEGATIVE Urine Urobilinogen 0.2 (NORMAL) Ur Leukocyte Esterase NEGATIVE Ur Microscopic Review NOT INDICATED Urine Culture Comments NOT INDICATED Urine HCG, Qual NEGATIVE PD Medical Decision Making - ED course ED course: Review of SUZI E, monthly prescriptions for [address] Torres. 10th emergency department visit in the last 12 months, all but 1 here, 1 to [place]. 32-year-old woman with multiple chronic pelvic pain issues and status post remote appendectomy and cholecystectomy's presents with right-sided abdominal pain. It has some urinary complaints with it. But urinalysis, CBC, CMP, test all normal/negative. Given the diagnostic findings I recommended watchful waiting. She queried about a CAT scan, but given that she has had innumerable CAT scans and her relatively young life I felt that risk of further radiation outweighed the benefit and watchful waiting was a more appropriate approach. While in the emergency department she received divided doses of IV Dilaudid which she stated only helpful for 10 minutes at a time. Requested IM medications prior to discharge and IM Toradol was ordered. Departure - Departure Disposition: 01 Home, Self Care Condition: Good Record reviewed to determine appropriate education?: Yes Instructions: ED Abdominal Pain Female Non-Specific Abdominal Pain Comments: No concerning findings were identified tonight. CBC, chemistry panels, liver enzymes, kidney function, urinalysis, test all normal/negative. Follow-up with your doctor for further evaluation and treatment. Return for new or worsening symptoms. Do not drive tonight given the medications you got here. Discharge Date/Time: 10/06/22 22:10
[2022-10-06 20:33] LABS: BILIRUBIN,URINE NEGATIVE (NEGATIVE); GLUCOSE, URINE (UA) NEGATIVE (NEGATIVE); KETONES,URINE (UA) NEGATIVE (NEGATIVE); LEUKOCYTE ESTERASE, URINE NEGATIVE (NEGATIVE); NITRITE,URINE NEGATIVE (NEGATIVE); OCCULT BLOOD,URINE NEGATIVE (NEGATIVE); PROTEIN,URINE NEGATIVE (NEGATIVE); UROBILINOGEN,URINE 0.2 (NORMAL) E.U./dL (NORMAL)
[2022-10-06 20:35] LABS: CLARITY,URINE CLEAR (CLEAR); HCG UR QUAL NEGATIVE
[2022-10-06] MEDS ORDERED: KETOROLAC 15 MG/ML VIAL IVP STA (21:01)
[2022-10-06] MEDS ORDERED: KETOROLAC 60 MG/2 ML VIAL IM STA (21:31)
[2022-10-06 22:21] VITALS: BP 116/93; O2SAT 97
== END 2022-10-06 22:10 | disposition home or self-care (01) ==
LOC: ED 19:10
DX: R10.31 Right lower quadrant pain (principal)
CPT/HCPCS: 36415; 80053; 81003; 81025; 83690; 85025; 96372; 96374; 96376; 99284; J1170; 81001; 87086

== ENCOUNTER 2022-10-31 11:52 | Emergency (ER) | payer BC, OTHER ==
[2022-10-31 12:08] VITALS: O2SAT 100
[2022-10-31 12:32] LABS: BASOPHILS % (AUTO) 0.2 %; EOSINOPHILS % (AUTO) 0.7 %; HCT - HEMATOCRIT 37.6 % (37.0-47.0); HGB - HEMOGLOBIN 12.8 g/dL (12.0-16.0); LYMPHOCYTES # (AUTO) 0.9 10^3/uL (1.5-3.5); LYMPHOCYTES % (AUTO) 15.2 %; MEAN CORPUSCULAR HEMOGLOBIN 31.7 pg (27.0-31.0); MEAN CORPUSCULAR VOLUME 93.1 fL (81.0-99.0); MEAN PLATELET VOLUME 9.2 fL (7.9-10.8); MONOCYTES # (AUTO) 0.3 10^3/uL (0.0-1.0); MONOCYTES % (AUTO) 5.4 %; NEUTROPHILS # (AUTO) 4.6 10^3/uL (1.5-6.6); NEUTROPHILS % (AUTO) 78.3 %; PLT - PLATELET COUNT 282 10^3/uL (130-450); RED BLOOD COUNT 4.04 10^6/uL (4.20-5.40); RED CELL DISTRIBUTION WIDTH 11.8 % (12.0-15.0); WHITE BLOOD COUNT 5.9 x10^3/uL (4.8-10.8)
[2022-10-31 12:42] LABS: ALBUMIN 4.7 g/dL (3.2-5.5); ALBUMIN/GLOBULIN RATIO 1.7 (1.0-2.2); BILIRUBIN,TOTAL 0.7 mg/dL (0.2-1.0); CALCIUM 9.7 mg/dL (8.5-10.3); CREATININE 0.7 mg/dL (0.6-1.3); POTASSIUM 3.5 mmol/L (3.5-4.5); TOTAL PROTEIN 7.4 g/dL (6.4-8.9)
--- OUTSIDE RECORDS SUMMARY | 2022-10-31 13:25 | EXTERNAL MEDICAL SUMMARY RPT | Continuity of Care Document ---
Author Name Unknown Address [address] [place] [address] Phone Organization [place] Address [address] [place] [address] Phone Care Team Providers Care It Programmer Analyst Name Role Phone Kaira Shanks Unavailable Unavailable Allergies and Intolerances date description facility reaction severity (no date) cephalexin [facility] (no reaction) (no se verity) (no date) codeine [facility] (no reaction) (no se verity) (no date) doxycycline [facility] (no reaction) (no s everity) Problems date description facility 2022-10-07 00:00 Abdominal pain [facility] 2022-10-09 11:59 Pelvic and perineal pain [facility] 2022-10-09 12:16 Pelvic and perineal [facility] Procedures date description facility 2022-10-06 00:00 CT kidney, ureter and bladder [facility] Results/Labs test date facility value unit notes Social History date description facility 2022-10-06 00:00 Ex-smoker (finding) [facility] ital Vital Signs date measurement value units 2022-10-06 00:00 BMI 31.7 kg/m2 2022-10-06 00:00 height_metric 162.56 cm 2022-10-06 00:00 height_standard 64 in 2022-10-06 00:00 temperature_metric 37.06 C 2022-10-06 00:00 temperature_standard 98.7 F 2022-10-06 00:00 weight_metric 83.91 kg 2022-10-06 00:00 weight_standard 184.99 lb 2022-10-07 00:00 BP_diastolic 83 mmHg 2022-10-07 00:00 BP_systolic 121 mmHg 2022-10-07 00:00 heart_rate 75 /min 2022-10-07 00:00 o2_saturation 98 % 2022-10-07 00:00 respiration_rate 16 /min
--- NOTE | 2022-10-31 14:04 | ED Physician Documentation ---
PD HPI ABD PAIN - Stated complaint Stated Complaint: ,N/V/D - Chief complaint Chief Complaint: Abd Pain - History obtained from History obtained from: Patient - History of Present Illness Timing - onset: Chronic Timing - duration: Days (1-2 days of worsening with noted softer stool and red blood with it. Some mucous.) Timing - details: Abrupt onset (The patient has had chronic lower abdominal pain. She states she is scheduled to see an endometriosis expert in a few weeks. She had increased pain over her baseline the last couple of days and noted some red blood and mucus in her stool. Right lower pain especially.) Quality: Cramping, Aching, Pain Location: RLQ, Suprapubic Radiation: Lower back Improved by: No: Eating Worsened by: No: Eating Associated symptoms: Nausea, Hematochezia, Loss of appetite. No: Fever, Vomiting, Dysuria, Vaginal dc Similar symptoms before: No diagnosis Recently seen: Emergency Dept (Seen about 1-1/2 months ago with similar and had a CT scan showing some bowel wall thickening consistent with colitis. Otherwise no firm diagnosis for her chronic/recurring pain. Previously years ago was endometriosis.) Review of Systems Constitutional: denies: Fever, Chills Nose: denies: Rhinorrhea / runny nose, Congestion Throat: denies: Sore throat Respiratory: denies: Cough GI: reports: Abdominal Pain, Nausea, Bloody / black stool (red blood with soft stool the past 1-2 days.). denies: Abdominal Swelling, Vomiting, Diarrhea : denies: Dysuria, Discharge Neurologic: denies: Generalized weakness, Focal weakness, Numbness PD PAST MEDICAL HISTORY - Past Medical History Cardiovascular: None Respiratory: None Endocrine/Autoimmune: None GI: None METER CALIBRATOR: Endometriosis : Other HEENT: Chronic vision loss Psych: ADD/ADHD, Post traumatic stress disorder Musculoskeletal: Chronic back pain Derm: Eczema - Past Surgical History Past Surgical History: Yes General: Cholecystectomy, Appendectomy, Colonoscopy /METER CALIBRATOR: section, Other - Present Medications Home Medications: Ambulatory Orders Medication Instructions Recorded Confirmed Hyoscyamine [Levsin] 0.125 mg SL TID PRN #20 tablet 10/31/22 Lisdexamfetamine Dimesylate 40 mg ORAL DAILY 10/31/22 10/31/22 [Vyvanse] - Allergies Allergies/Adverse Reactions: Allergies Allergy/AdvReac Type Severity Reaction Status Date / Time cephalexin [From Keflex] Allergy Emesis Verified 10/06/22 19:44 doxycycline Allergy Emesis Verified 10/06/22 19:44 codeine AdvReac Itching Verified 10/06/22 19:44 morphine AdvReac Itching Verified 10/06/22 19:44 - Social History Does the pt smoke?: No Smoking Status: Never smoker Does the pt drink ETOH?: No Does the pt have substance abuse?: No - Immunizations Immunizations are current?: Yes - POLST Patient has POLST: No PD ED PE NORMAL - Vitals Vital signs reviewed: Yes - General General: Alert and oriented X 3, Well developed/nourished - Neck Neck: Supple, no meningeal sign, No adenopathy - Cardiac Cardiac: RRR, No murmur - Respiratory Respiratory: Clear bilaterally - Abdomen Abdomen: Normal bowel sounds, Soft, Non distended, Other (Suprapubic and right lower quadrant particularly tender with some local guarding. Mild percussion in the right lower quadrant. Left lower is also tender without guarding. No rebound.) - Female Female : Deferred - Rectal Rectal: Deferred - Back Back: No CVA TTP - Derm Derm: Normal color, Warm and dry - Extremities Extremities: Normal ROM s pain - Neuro Neuro: Alert and oriented X 3, No motor deficit, Normal speech Results - Vitals Vitals: Vital Signs - 24 hr 10/31/22 10/31/22 10/31/22 12:00 13:53 16:44 Temperature 37.1 C Heart Rate 61 58 L 50 L Respiratory 18 16 18 Rate Blood Pressure 150/102 H 140/97 H 144/88 H O2 Saturation 100 100 100 10/31/22 17:15 Temperature Heart Rate 65 Respiratory 16 Rate Blood Pressure 144/95 H O2 Saturation 100 Oxygen O2 Source Room air - Labs Labs: Laboratory Tests 10/31/22 10/31/22 10/31/22 12:21 12:21 12:25 WBC 5.9 RBC 4.04 L Hgb 12.8 Hct 37.6 MCV 93.1 MCH 31.7 H MCHC 34.0 RDW 11.8 L Plt Count 282 MPV 9.2 Neut # (Auto) 4.6 Lymph # (Auto) 0.9 L [place] # (Auto) 0.3 Eos # (Auto) 0.0 Baso # (Auto) 0.0 Absolute Nucleated RBC 0.00 Nucleated RBC % 0.0 ESR 9 Sodium Potassium Chloride Carbon Dioxide Anion Gap BUN Creatinine Estimated GFR (MDRD) Glucose Calcium Total Bilirubin AST ALT Alkaline Phosphatase C-Reactive Protein 0.5 Total Protein Albumin Globulin Albumin/Globulin Ratio Lipase Urine Color Urine Clarity Urine pH Ur Specific [place] Urine Protein Urine Glucose (UA) Urine Ketones Urine Occult Blood Urine Nitrite Urine Bilirubin Urine Urobilinogen Ur Leukocyte Esterase Ur Microscopic Review Urine Culture Comments Urine HCG, Qual 10/31/22 10/31/22 10/31/22 12:25 16:08 16:08 WBC RBC Hgb Hct MCV MCH MCHC RDW Plt Count MPV Neut # (Auto) Lymph # (Auto) [place] # (Auto) Eos # (Auto) Baso # (Auto) Absolute Nucleated RBC Nucleated RBC % ESR Sodium 138 Potassium 3.5 Chloride 103 Carbon Dioxide 26 Anion Gap 9.0 BUN 7 Creatinine 0.7 Estimated GFR (MDRD) 96 Glucose 101 Calcium 9.7 Total Bilirubin 0.7 AST 12 ALT 8 L Alkaline Phosphatase 44 C-Reactive Protein Total Protein 7.4 Albumin 4.7 Globulin 2.7 Albumin/Globulin Ratio 1.7 Lipase 19 Urine Color YELLOW Urine Clarity CLEAR Urine pH 6.0 Ur Specific [place] <=1.005 Urine Protein NEGATIVE Urine Glucose (UA) NEGATIVE Urine Ketones 15 H Urine Occult Blood NEGATIVE Urine Nitrite NEGATIVE Urine Bilirubin NEGATIVE Urine Urobilinogen 0.2 (NORMAL) Ur Leukocyte Esterase NEGATIVE Ur Microscopic Review NOT INDICATED Urine Culture Comments NOT INDICATED Urine HCG, Qual NEGATIVE - Rads (name of study) abd/pelvic CT Relevant Findings:: Prelim report reviewed (normal exam. Recent finding of some right colon wall thicening has resolved.) PD Medical Decision Making - ED course Complexity details: reviewed old records ([facility] showing visits for ab pain and multiple scripts for pain meds, mainly one provider. Oral dilaudid 2 mg 56 per 14 days. ), reviewed results (no findings of colitis on CT today. Clinically she has colotis symptoms with abd cramping, pain, soft stool with red blood and some mucous. Presume will need colonoscopy. Does not clearly seem infectious so not giving abx. Can try Levsin for cramping. She is on high dose dilaudid orally so no Rx.), considered differential (She does not have her appendix and her gallbladder. She does have her ovaries and uterus. She has an IUD so unlikely to be . Consider endometriosis. Consider colitis given some soft stool and blood with it. Previous CT had shown some colitis 1 and half months ago.), d/w patient Departure - Departure Disposition: 01 Home, Self Care Clinical Impression: Hematochezia, Colitis, Lower abdominal pain Condition: Stable Record reviewed to determine appropriate education?: Yes Follow-Up: Maico Torres MD [Primary Care Provider] - Michael Magallanes MD [Provider Admit Priv/Credential] - Prescriptions: Hyoscyamine [Levsin] 0.125 mg SL TID PRN #20 tablet PRN Reason: Abdominal Pain Comments: Your CT scan did not show any obvious acute abnormality. Your basic blood tests and urine tests are normal with regard to the white count and the main blood count. At this point is not clear the cause of your pain. Follow-up with your endometriosis specialist as planned. However your symptoms would be more suggestive of a process in the colon (colitis). You can get endometrial implants in the colon that would cause symptoms. Otherwise evaluating for other causes of colitis would be appropriate. Follow-up with Dr. Grant to discuss the idea of a colonoscopy. Meanwhile continue with usual medications. Add Levsin/hyoscyamine intestinal antispasmodic as prescribed when needed to help with intestinal pains. See if that is helpful. I sent it to your preferred pharmacy. Follow-up with your primary care as well. Forms: PCP List Discharge Date/Time: 10/31/22 17:22
[2022-10-31] MEDS ORDERED: SODIUM CHLORIDE 0.9% 1,000 ML IV STA (14:29)
[2022-10-31] MEDS ORDERED: ONDANSETRON 4 MG/2 ML VIAL IVP STA (14:29)
[2022-10-31] MEDS ORDERED: KETOROLAC 15 MG/ML VIAL IVP STA (14:29)
[2022-10-31] MEDS ORDERED: HYDROmorphone 2 MG/ML VIAL IVP STA ×2 (14:29→15:35)
[2022-10-31] MEDS ORDERED: iohexoL-300 100 ML VIAL IVP ONE (15:07)
--- NOTE | 2022-10-31 16:21 | CT Report ---
PROCEDURE: ABDOMEN/PELVIS W INDICATIONS: lower abd pain, recurrent. bloody stool. CONTRAST: 100mL Omni 300 TECHNIQUE: After the administration of contrast, 5 mm thick sections acquired from the diaphragms to the symphys is. 5 mm thick coronal and sagittal reformats were acquired. For radiation dose reduction, the foll owing was used: automated exposure control, adjustment of mA and/or kV according to patient size. COMPARISON: 09/05/2022 FINDINGS: Image quality: Excellent. Lung bases and heart: Unremarkable. Liver: No solid mass. Gallbladder and biliary tree: The gallbladder is surgically absent. No biliary ductal dilatation. Spleen: No splenomegaly. Pancreas: No pancreatic ductal dilation. Adrenals: No adrenal nodule. Kidneys and ureters: No hydronephrosis. No renal cystic lesion which requires follow up. No solid mas s. Bowel and peritoneum: No bowel distension. No pathologic free fluid. Lymph nodes: No central or retroperitoneal adenopathy. Vessels: No infrarenal aortic aneurysm. PELVIS Reproductive organs: Intrauterine device is noted in the endometrial canal and appears well-positione d. Bladder: No abnormal wall thickening, accounting for underdistension. Pelvic lymph nodes: No pelvic adenopathy by size criteria. Bones: No aggressive osseous abnormality. Other: No significant ventral or inguinal hernia. IMPRESSION: 1. No acute abdominal or pelvic abnormality. 2. No explanation for recurrent bloody stool is identified. Consider colonoscopy. Reviewed by: Олег Mathew on 10/31/2022 4:20 PM PDT Approved by: Олег Mathew on 10/31/2022 4:20 PM PDT Station ID: [id number]
[2022-10-31 16:23] LABS: BILIRUBIN,URINE NEGATIVE (NEGATIVE); GLUCOSE, URINE (UA) NEGATIVE (NEGATIVE); KETONES,URINE (UA) 15 mg/dL (NEGATIVE); LEUKOCYTE ESTERASE, URINE NEGATIVE (NEGATIVE); NITRITE,URINE NEGATIVE (NEGATIVE); OCCULT BLOOD,URINE NEGATIVE (NEGATIVE); PROTEIN,URINE NEGATIVE (NEGATIVE); UROBILINOGEN,URINE 0.2 (NORMAL) E.U./dL (NORMAL)
[2022-10-31 16:24] LABS: CLARITY,URINE CLEAR (CLEAR); HCG UR QUAL NEGATIVE
[2022-10-31] MEDS ORDERED: HYOSCYAMINE SL 0.125 MG TABLET SL STA (17:00)
[2022-10-31] MEDS ORDERED: HYDROmorphone 1 MG/ML CARPUJECT IM STA (17:01)
[2022-10-31 17:18] VITALS: BP 144/95
== END 2022-10-31 17:22 | disposition home or self-care (01) ==
LOC: ED 11:52
DX: K52.9 Noninfective gastroenteritis and colitis, unspecified (principal); K92.1 Melena
CPT/HCPCS: 36415; 74177; 80053; 81003; 81025; 83690; 85025; 85651; 86140; 96372; 96374; 96376; 99284; A9270; J1170; Q9967; 81001; 87086

== ENCOUNTER 2022-11-30 03:00 | Emergency (ER) | payer OTHER ==
--- OUTSIDE RECORDS SUMMARY | 2022-11-30 03:17 | EXTERNAL MEDICAL SUMMARY RPT | Continuity of Care Document ---
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 Name Role Phone Kiara Shanks Unavailable Unavailable Allergies and Intolerances date description facility reaction severity 2022-10-06 23:06:16 [facility] (no reactio n) Moderate 2022-10-06 23:06:16 [facility] (no reactio n) (no severity) 2022-10-06 23:06:16 [facility] (no reactio n) (no severity) Problems date description facility 2022-10-07 00:00 Abdominal pain [facility] 2022-10-09 11:59 Pelvic and perineal pain [facility] 2022-10-09 12:16 [facility] Procedures date description facility 2022-10-06 00:00 CT kidney, ureter and bladder [facility] Results/Labs test date facility value unit notes Social History date description facility 2022-10-06 00:00 Ex-smoker (finding) [facility] Vital Signs date measurement value units 2022-10-06 [...]
--- NOTE | 2022-11-30 03:48 | ED Physician Documentation ---
History of Present Illness - Stated complaint Stated Complaint: SHOULDER PX - Chief complaint Chief Complaint: Ext Problem - History obtained from History obtained from: Patient - Additonal information Additional information: HPI from patient. Patient c/o 4 days of atraumatic left shoulder pain, anterior and posterior aspect with relative sparing of lateral aspect. Pain is distinctly worse with movement, particularly abduction. The pain occasionally radiates up trapezius towards next and down the LUE. Pain is also worse when lying down. Denies h/o similar problem. Denies fever, numbness, weakness, neck pain. Patient is right hand dominant. Review of Systems Constitutional: denies: Fever Cardiac: denies: Chest pain / pressure Respiratory: denies: Dyspnea, Cough Musculoskeletal: reports: Joint pain. denies: Neck pain, Back pain, Extremity pain, Extremity swelling, Joint swelling Neurologic: denies: Focal weakness, Numbness, Headache PD PAST MEDICAL HISTORY - Past Medical History Cardiovascular: None Respiratory: None Neuro: None Endocrine/Autoimmune: None GI: None NURSING FACULTY: Endometriosis : Other HEENT: Chronic vision loss Psych: ADD/ADHD, Post traumatic stress disorder Musculoskeletal: Chronic back pain Derm: Eczema - Past Surgical History Past Surgical History: Yes General: Cholecystectomy, Appendectomy, Colonoscopy /NURSING FACULTY: section, Other - Present Medications Home Medications: Ambulatory Orders Medication Instructions Recorded Confirmed Hyoscyamine [Levsin] 0.125 mg SL TID PRN #20 tablet 10/31/22 Lisdexamfetamine Dimesylate 40 mg ORAL DAILY 10/31/22 10/31/22 [Vyvanse] Mupirocin 1 film TP BID #22 gm 11/30/22 - Allergies Allergies/Adverse Reactions: Allergies Allergy/AdvReac Type Severity Reaction Status Date / Time cephalexin [From Keflex] Allergy Emesis Verified 11/30/22 03:05 doxycycline Allergy Emesis Verified 11/30/22 03:05 codeine AdvReac Itching Verified 11/30/22 03:05 morphine AdvReac Itching Verified 11/30/22 03:05 - Social History Does the pt smoke?: No Smoking Status: Never smoker Does the pt drink ETOH?: No Does the pt have substance abuse?: No - Immunizations Immunizations are current?: Yes - POLST Patient has POLST: No PD ED PE NORMAL - Vitals Vital signs reviewed: Yes - General General: Alert and oriented X 3, No acute distress (appears uncomfortable/tearful at times during H+P), Well developed/nourished - Neck Neck: Supple, no meningeal sign, Other (no rash (neck, left shoulder)) - Respiratory Respiratory: No respiratory distress, Clear bilaterally - Extremities Extremities: No edema PD ED PE EXPANDED - Extremities Extremities: Tenderness (TTP anterior aspect only), Limited ROM (left shoulder limited flexion, extension, abduction, but external and internal ROM intact). No: Swelling, Bruising, Red warm joint Results - Vitals Vitals: Oxygen O2 Source Room air - Rads (name of study) left shoulder xrays Relevant Findings:: Prelim report reviewed, EMP independent interpretation of test (I reviewed these images and my interpretation is no acute abnormality including no evidence of fracture, arthritic change, effusion), See rad report PD Medical Decision Making - ED course Complexity details: considered differential, d/w patient ED course: Normal left shoulder xrays. No trauma and no findings on exam, nor elements of HPI/ROS, to suggest etiology. Infectious cause would likely entail erythema and abnormally warm/hot joint. Gout would be expected to have similar findings. Bursitis is a reasonable diagnosis for this differential as is tendonitis (although no obvious recent strenuous and/or repetitive use). Advised to follow up with PCP, next available appointment. Return precautions reviewed. Patient asks for something for pain. She already take PO hydromorphone on regular basis for endometriosis. She was driven to ED. She is given 2mg IM dilaudid with good effect, but prior to d/c says it is wearing off and requests another dose. She is given 1mg IM dilaudid and discharged. We discussed sling for comfort, but she says she already has one Departure - Departure Disposition: Home, Self Care Clinical Impression: Shoulder pain, left Condition: Good Instructions: ED Shoulder Pain [facility] Follow-Up: Maico Torres MD [Primary Care Provider] - Prescriptions: Mupirocin 1 film TP BID #22 gm Comments: There are no abnormalities on the x-rays performed tonight of the left shoulder. The cause of your pain is not apparent at this time, but further testing from an emergency standpoint is unlikely to achieve diagnosis and/or change treatment plan. At this time, I am recommending that you contact your primary care provider when the office opens later this morning to arrange for next available appointment for follow-up. Further tests might be helpful in the outpatient setting. Forms: PCP List Discharge Date/Time: 11/30/22 06:13
[2022-11-30] MEDS ORDERED: HYDROmorphone 1 MG/ML CARPUJECT IM STA ×2 (04:34→06:00)
[2022-11-30 06:19] VITALS: BP 136/88; O2SAT 98
--- NOTE | 2022-11-30 09:33 | XRAY Report ---
PROCEDURE: Shoulder 3 View LT INDICATIONS: left shoulder pain TECHNIQUE: 3 views of the shoulder were acquired. COMPARISON: None. FINDINGS: Bones: No acute fractures or dislocations. No suspicious bony lesions. Visualized ribs appear inta ct. Soft tissues: No suspicious soft tissue calcifications. The visualized lungs are within normal limi ts. IMPRESSION: No acute osseous abnormality. If there is clinical concern or persistent symptoms, additional imaging such as repeat radiographs or advanced imaging (e.g. CT, MRI) may be helpful for further evaluation. There is no significant discrepancy when compared with the preliminary overnight report. Reviewed by: Marco Antonio Ely MD on 11/30/2022 9:32 AM PDT Approved by: Marco Antonio Ely MD on 11/30/2022 9:32 AM PDT Station ID: [id number]
== END 2022-11-30 06:13 | disposition home or self-care (01) ==
LOC: ED 03:00
DX: M25.512 Pain in left shoulder (principal)
CPT/HCPCS: 73030; 96372; 99283; 99284; J1170

== ENCOUNTER 2023-01-10 18:39 | Emergency (ER) | payer OTHER ==
[2023-01-10 18:54] VITALS: O2SAT 100
--- NOTE | 2023-01-10 19:19 | ED Physician Documentation ---
History of Present Illness - Stated complaint Stated Complaint: PELVIC PX/VOMITING/DIZZY - Chief complaint Chief Complaint: Abd Pain - Additonal information Additional information: 32-year-old female presents to the emergency department for evaluation of cute onset right lower quadrant/pelvic pain that began while she was walking her dog. She states she has never had pain this intensely before. She presents crying and tearful. She did have a history of an ectopic on her left fallopian tube several years ago. This was managed medically. This did occur in the setting of an IUD. Patient currently has an IUD in place. Previous surgical history also includes appendectomy and cholecystectomy. Patient has no fevers but endorses nausea and vomiting. 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 : Other HEENT: Chronic vision loss Psych: ADD/ADHD, Post traumatic stress disorder Musculoskeletal: Chronic back pain Derm: Eczema - Past Surgical History Past Surgical History: Yes General: Cholecystectomy, Appendectomy, Colonoscopy /WET MACHINE CUTTER: section, Other - Present Medications Home Medications: Ambulatory Orders Medication Instructions Recorded Confirmed Hyoscyamine [Levsin] 0.125 mg SL TID PRN #20 tablet 10/31/22 Lisdexamfetamine Dimesylate 40 mg ORAL DAILY 10/31/22 10/31/22 [Vyvanse] Mupirocin 1 film TP BID #22 gm 11/30/22 HYDROcod/ACETAM 5/325 [[place] 5/325] 1 tablet PO BID PRN #5 tablet 01/10/23 - Allergies Allergies/Adverse Reactions: Allergies Allergy/AdvReac Type Severity Reaction Status Date / Time cephalexin [From Keflex] Allergy Emesis Verified 01/10/23 18:43 doxycycline Allergy Emesis Verified 01/10/23 18:43 codeine AdvReac Itching Verified 01/10/23 18:43 morphine AdvReac Itching Verified 01/10/23 18:43 - Social History Does the pt smoke?: No Smoking Status: Never smoker Does the pt drink ETOH?: No Does the pt have substance abuse?: No - Immunizations Immunizations are current?: Yes - POLST Patient has POLST: No PD ED PE NORMAL - General General: Alert and oriented X 3. No: No acute distress (crying, tearful) - Neck Neck: Supple, no meningeal sign - Cardiac Cardiac: RRR - Respiratory Respiratory: No respiratory distress, Clear bilaterally - Abdomen Abdomen: Normal bowel sounds, Soft. No: Non tender (Focal tenderness in the low right quadrant/pelvic region with some guarding and rebound.) - Derm Derm: Normal color, Warm and dry - Extremities Extremities: No deformity - Neuro Neuro: Alert and oriented X 3 Eye Opening: Spontaneous Motor: Obeys Commands Verbal: Oriented GCS Score: 15 Results - Vitals Vitals: Vital Signs - 24 hr 01/10/23 01/10/23 18:43 20:35 Temperature 36.5 C 37 C Heart Rate 71 83 Respiratory 24 17 Rate Blood Pressure 150/100 H 129/75 O2 Saturation 100 100 Oxygen O2 Source Room air - Labs Labs: Laboratory Tests 01/10/23 01/10/23 01/10/23 19:25 19:25 20:25 WBC 4.7 L RBC 3.88 L Hgb 11.9 L Hct 36.7 L MCV 94.6 MCH 30.7 MCHC 32.4 RDW 12.4 Plt Count 255 MPV 9.4 Neut # (Auto) 3.0 Lymph # (Auto) 1.2 L [place] # (Auto) 0.3 Eos # (Auto) 0.0 Baso # (Auto) 0.0 Absolute Nucleated RBC 0.00 Nucleated RBC % 0.0 Sodium 141 Potassium 3.3 L Chloride 105 Carbon Dioxide 26 Anion Gap 10.0 BUN 9 Creatinine 0.8 Estimated GFR (MDRD) 82 L Glucose 84 Calcium 9.5 Total Bilirubin 0.6 AST 15 ALT 14 Alkaline Phosphatase 42 Total Protein 7.0 Albumin 4.6 Globulin 2.4 Albumin/Globulin Ratio 1.9 Lipase 37 Beta HCG, Quant < 0.6 Urine Color YELLOW Urine Clarity CLEAR Urine pH 6.0 Ur Specific [place] 1.015 Urine Protein NEGATIVE Urine Glucose (UA) NEGATIVE Urine Ketones 15 H Urine Occult Blood NEGATIVE Urine Nitrite NEGATIVE Urine Bilirubin NEGATIVE Urine Urobilinogen 0.2 (NORMAL) Ur Leukocyte Esterase NEGATIVE Ur Microscopic Review NOT INDICATED Urine Culture Comments NOT INDICATED Urine HCG, Qual NEGATIVE - Rads (name of study) Pelvic US Relevant Findings:: Final report received (Normal Doppler flow to the ovaries. IUD within the central endometrium, appropriately positioned. No cystic lesions measuring greater than 3 cm.) PD Medical Decision Making - ED course Complexity details: reviewed results, re-evaluated patient, considered differential, d/w patient ED course: 32-year-old female presents emergency department for evaluation of acute onset sudden right lower quadrant abdominal/pelvic pain that occurred just about 1 hour prior to arrival when she was walking her dog. Patient has past surgical history includes previous appendectomy, cholecystectomy as well as a history of an ectopic on the left adnexa. Presentation she was alert though very uncomfortable appearing she was vomiting. Her vital signs showed no fever, tachycardia or hypotension. CBC showed a white count of 4.7 hemoglobin of 11.9. Chemistry showed a potassium of 3.3. She is not . Urine showed no signs of infection and pt is not Initially a pelvic ultrasound was obtained given previous history of appendectomy. Ultrasound showed no abnormal findings. Initially the patient was administered a single milligram of Dilaudid with moderate relief of pain but it quickly returned a second dose was then ordered. Given the continued undifferentiated abdominal pain without clear etiology a CT of the abdomen pelvis is pending. Differential at this time includes bowel ob struction, renal or ureter colic, diverticulitis, colitis Subsequently CT of the abdomen suggest an early colitis. However given her normal labs without leukocytosis, vital signs without fever, tachycardia or hypotension I do not feel that she would benefit from antibiotics. She does need referral for a colonoscopy for further evaluation of what may be colitis. Patient has required 3 mg of Dilaudid here in the ER for analgesia. However when I review her PDM I do see that she receives dye allotted and as such she likely has some tolerance to opioid medications. I am writing a prescription for some hydrocodone to be used over the next several days. I recommended clear liquid diet for 24 to 48 hours as well as Tylenol and ibuprofen. She will follow for the colonoscopy. The usual emergent return precautions were discussed for worsening symptoms Departure - Departure Disposition: 01 Home, Self Care Clinical Impression: Right lower quadrant abdominal pain Condition: Stable Prescriptions: HYDROcod/ACETAM 5/325 [[place] 5/325] 1 tablet PO BID PRN #5 tablet PRN Reason: Pain Comments: You are seen today for sudden pain in the right lower quadrant of your abdomen. Your labs completed today in the emergency department did not show any worrisome findings. You are not . The ultrasound showed no findings of concern with your ovaries such as an ovarian torsion or cyst. Your IUD is in normal position. A CT of the abdomen showed the possibility of early colitis. However given your normal labs I do not feel that you would benefit from antibiotics. I recommend clear liquids for the next 24 to 48 hours and as pain improves then you can begin bananas, rice, applesauce and toast. It is critical that you follow closely with your PCP because you should obtain a colonoscopy for further evaluation Return to the ER for any new or worsening symptoms, bloody stools, high fevers or uncontrolled vomiting. I am prescribing a short course of narcotic pain medication for you. These are potentially dangerous and addictive medications that should be used carefully. These medications may constipate you. Take an zyht-txv-ksttodh stool softener (docusate) twice daily with plenty of water while taking these medications. If you go 24 hours without a bowel movement, take ozae-ddm-qbibiov miralax, per package instructions. Do not drink or drive while taking these medications. If you received narcotic or sedating medications while in the emergency department, do not drive for 24 hours. Store this medication in a safe, secure place and out of reach of children. It is a violation of federal law to give or sell this medication to another person or to use in a manner other than prescribed. The ED will not refill narcotic prescriptions, including prescriptions lost or stolen. To dispose of unwanted medications: 1. [facility] at [address] [facility] in [place] has a medication drop box. They accept prescription medications (in pill form) Sunday through Sunday 9:00 a.m. to 5:00 p.m. 2. The [facility] accepts prescription medications (in pill form only) for disposal year round. Call for more information. 3. Contact the [facility] for the next [facility] sponsored prescription drug collection event. , [phone], or [phone]; Note that many narcotic pain relievers also contain Tylenol/acetaminophen. Please ensure that your total dose of acetaminophen from all sources does not exceed 3 g (3000 mg) per day. Forms: PCP List
[2023-01-10 19:32] LABS: BASOPHILS % (AUTO) 0.4 %; EOSINOPHILS % (AUTO) 0.4 %; HCT - HEMATOCRIT 36.7 % (37.0-47.0); HGB - HEMOGLOBIN 11.9 g/dL (12.0-16.0); LYMPHOCYTES # (AUTO) 1.2 10^3/uL (1.5-3.5); LYMPHOCYTES % (AUTO) 26.6 %; MEAN CORPUSCULAR HEMOGLOBIN 30.7 pg (27.0-31.0); MEAN CORPUSCULAR HGB CONC 32.4 g/dL (32.0-36.0); MEAN CORPUSCULAR VOLUME 94.6 fL (81.0-99.0); MEAN PLATELET VOLUME 9.4 fL (7.9-10.8); MONOCYTES # (AUTO) 0.3 10^3/uL (0.0-1.0); MONOCYTES % (AUTO) 7.3 %; NEUTROPHILS % (AUTO) 65.1 %; PLT - PLATELET COUNT 255 10^3/uL (130-450); RED BLOOD COUNT 3.88 10^6/uL (4.20-5.40); RED CELL DISTRIBUTION WIDTH 12.4 % (12.0-15.0); WHITE BLOOD COUNT 4.7 x10^3/uL (4.8-10.8)
[2023-01-10] MEDS: ONDANSETRON 4 MG/2 ML VIAL IVP STA (19:32)
[2023-01-10] MEDS: SODIUM CHLORIDE 0.9% 1,000 ML IV STA (19:32)
[2023-01-10] MEDS: HYDROmorphone 1 MG/ML CARPUJECT IVP STA ×3 (19:32→22:39)
[2023-01-10 20:09] LABS: ALBUMIN 4.6 g/dL (3.2-5.5); ALBUMIN/GLOBULIN RATIO 1.9 (1.0-2.2); ALKALINE PHOSPHATASE 42 IU/L (42-121); ALT ALANINE AMINOTRANSFERASE 14 IU/L (10-60); AST ASPARTATE AMINOTRANSFERASE 15 IU/L (10-42); BILIRUBIN,TOTAL 0.6 mg/dL (0.2-1.0); BUN - BLOOD UREA NITROGEN 9 mg/dL (6-20); CALCIUM 9.5 mg/dL (8.5-10.3); CARBON DIOXIDE - CO2 26 mmol/L (21-32); CHLORIDE 105 mmol/L (101-111); CREATININE 0.8 mg/dL (0.6-1.3); GFR - MDRD 82 (>89); GLUCOSE 84 mg/dL (74-104); LIPASE 37 U/L (11-82); POTASSIUM 3.3 mmol/L (3.5-4.5); SODIUM 141 mmol/L (135-145)
[2023-01-10 20:40] LABS: BILIRUBIN,URINE NEGATIVE (NEGATIVE); GLUCOSE, URINE (UA) NEGATIVE (NEGATIVE); KETONES,URINE (UA) 15 mg/dL (NEGATIVE); LEUKOCYTE ESTERASE, URINE NEGATIVE (NEGATIVE); NITRITE,URINE NEGATIVE (NEGATIVE); OCCULT BLOOD,URINE NEGATIVE (NEGATIVE); PROTEIN,URINE NEGATIVE (NEGATIVE); UROBILINOGEN,URINE 0.2 (NORMAL) E.U./dL (NORMAL)
[2023-01-10 20:44] LABS: CLARITY,URINE CLEAR (CLEAR); HCG UR QUAL NEGATIVE
--- NOTE | 2023-01-10 20:47 | Ultrasound Report ---
PROCEDURE: Pelvic w/Transvag+Doppler Comp INDICATIONS: CC pelvic pain. hx ectopic, ovarian cysts TECHNIQUE: Real-time scanning was performed of the pelvic organs, with image documentation. Endovaginal scanning was not performed due to patient intolerance. Spectral and Doppler interrogation was performed of th e ovaries bilaterally. COMPARISON: None. FINDINGS: Uterus: Uterus is anteverted and normal in size at 8.6 x 4.3 x 5.6 cm. The myometrium is homogeneou s. The endometrium measures 5 mm in combined thickness. IUD within the central endometrium. Ovaries: The right ovary measures 3.6 x 1.9 x 3.9 cm, with a calculated ovarian volume of 14 cc. Th e left ovary measures 3.8 x 1.8 x 2.5 cm, with a calculated ovarian volume of 9 cc. Appropriate bloo d flow to the ovaries with Doppler interrogation. Less than 12 follicles can be seen in each ovary. No adnexal masses are seen. No cystic lesions measuring greater than 3 cm. Other: No pathologic free abdominal or pelvic fluid. IMPRESSION: Normal Doppler flow to the ovaries. IUD within the central endometrium, appropriately positioned. Reviewed by: Jacob Stanley on 01/10/2023 8:45 PM PST Approved by: Jacob Stanley on 01/10/2023 8:45 PM PST Station ID: [id number]
[2023-01-10] MEDS: iohexoL-300 100 ML VIAL IVP ONE (21:39)
--- NOTE | 2023-01-10 22:04 | CT Report ---
PROCEDURE: ABDOMEN/PELVIS W INDICATIONS: RLQ abd pain; previous appy; ? stone CONTRAST: Omni 300 100ml TECHNIQUE: After the administration of intravenous contrast, 5 mm thick sections acquired from the diaphragms to the symphysis. 5 mm thick coronal and sagittal reformats were acquired. For radiation dose reducti on, the following was used: automated exposure control, adjustment of mA and/or kV according to simón ent size. COMPARISON: CT 10/31/2022 FINDINGS: Image quality: Excellent. Lung bases and heart: Unremarkable. Liver: No solid mass. Gallbladder and biliary tree: Surgically absent. No biliary dilation, accounting for post-cholecystec raul state. Spleen: No splenomegaly. Pancreas: No pancreatic ductal dilation. Adrenals: No adrenal nodule. Kidneys and ureters: No hydronephrosis. No renal cystic lesion which requires follow up. No solid mas s. Bowel and peritoneum: Mild submucosal hyperattenuation of the hepatic flexure through the transverse colon, without significant wall thickening. Appendectomy. Lymph nodes: No central or retroperitoneal adenopathy. Vessels: No infrarenal aortic aneurysm. PELVIS Reproductive organs: IUD within the central endometrium. Bladder: No abnormal wall thickening, accounting for underdistension. Pelvic lymph nodes: No pelvic adenopathy by size criteria. Bones: No aggressive osseous abnormality. Other: No significant ventral or inguinal hernia. IMPRESSION: Mild submucosal hyperattenuation of the hepatic flexure through the transverse colon, which may indic ate early/mild colitis. No nephrolithiasis or hydronephrosis. Reviewed by: Jacob Stanley on 01/10/2023 10:03 PM PST Approved by: Jacob Stanley on 01/10/2023 10:03 PM PST Station ID: [id number]
[2023-01-10] MEDS: HYDROcod/ACET 5/325 Prepack 4 PO STA (22:39)
[2023-01-10 23:03] VITALS: BP 129/74
== END 2023-01-10 22:58 | disposition home or self-care (01) ==
LOC: ED 18:39
DX: R10.31 Right lower quadrant pain (principal)
CPT/HCPCS: 36415; 74177; 76830; 76856; 80053; 81003; 81025; 83690; 84702; 85025; 93975; 96374; 96376; 99284; J1170; 81001; 87086

== ENCOUNTER 2023-01-28 18:45 | Emergency (ER) | payer OTHER ==
[2023-01-28 19:09] LABS: BILIRUBIN,URINE NEGATIVE (NEGATIVE); GLUCOSE, URINE (UA) NEGATIVE (NEGATIVE); KETONES,URINE (UA) NEGATIVE (NEGATIVE); LEUKOCYTE ESTERASE, URINE NEGATIVE (NEGATIVE); NITRITE,URINE NEGATIVE (NEGATIVE); OCCULT BLOOD,URINE NEGATIVE (NEGATIVE); PROTEIN,URINE NEGATIVE (NEGATIVE); UROBILINOGEN,URINE 0.2 (NORMAL) E.U./dL (NORMAL)
[2023-01-28 19:11] LABS: CLARITY,URINE CLEAR (CLEAR); HCG UR QUAL NEGATIVE
[2023-01-28] MEDS ORDERED: HYDROmorphone 1 MG/ML CARPUJECT IM STA ×2 (19:21→20:37)
[2023-01-28] MEDS ORDERED: HYOSCYAMINE SL 0.125 MG TABLET SL STA (19:31)
[2023-01-28 19:32] LABS: BASOPHILS % (AUTO) 0.3 %; EOSINOPHILS # (AUTO) 0.1 10^3/uL (0.0-0.7); HCT - HEMATOCRIT 35.5 % (37.0-47.0); HGB - HEMOGLOBIN 11.8 g/dL (12.0-16.0); LYMPHOCYTES % (AUTO) 14.4 %; MEAN CORPUSCULAR HEMOGLOBIN 31.5 pg (27.0-31.0); MEAN CORPUSCULAR HGB CONC 33.2 g/dL (32.0-36.0); MEAN CORPUSCULAR VOLUME 94.7 fL (81.0-99.0); MEAN PLATELET VOLUME 9.8 fL (7.9-10.8); MONOCYTES # (AUTO) 0.5 10^3/uL (0.0-1.0); MONOCYTES % (AUTO) 6.6 %; NEUTROPHILS # (AUTO) 5.5 10^3/uL (1.5-6.6); NEUTROPHILS % (AUTO) 77.4 %; PLT - PLATELET COUNT 259 10^3/uL (130-450); RED BLOOD COUNT 3.75 10^6/uL (4.20-5.40); RED CELL DISTRIBUTION WIDTH 12.2 % (12.0-15.0); WHITE BLOOD COUNT 7.1 x10^3/uL (4.8-10.8)
[2023-01-28] MEDS ORDERED: methylPREDNISolone SUCCINATE 125 MG/2 ML VIAL IVP STA (19:32)
[2023-01-28] MEDS ORDERED: DROPERIDOL 5 MG/2 ML VIAL IVP STA (19:40)
[2023-01-28 19:46] LABS: ALBUMIN 4.4 g/dL (3.2-5.5); ALKALINE PHOSPHATASE 41 IU/L (42-121); ALT ALANINE AMINOTRANSFERASE 22 IU/L (10-60); AST ASPARTATE AMINOTRANSFERASE 15 IU/L (10-42); BILIRUBIN,TOTAL 0.5 mg/dL (0.2-1.0); BUN - BLOOD UREA NITROGEN 11 mg/dL (6-20); CALCIUM 9.5 mg/dL (8.5-10.3); CARBON DIOXIDE - CO2 25 mmol/L (21-32); CHLORIDE 107 mmol/L (101-111); CREATININE 0.8 mg/dL (0.6-1.3); CRP - C-REACTIVE PROTEIN < 0.5 mg/dL (<0.5); GFR - MDRD 82 (>89); GLUCOSE 105 mg/dL (74-104); LIPASE 22 U/L (11-82); POTASSIUM 3.4 mmol/L (3.5-4.5); SODIUM 138 mmol/L (135-145); TOTAL PROTEIN 6.6 g/dL (6.4-8.9)
[2023-01-28 20:04] LABS: MUDS CUTOFF CONCENTRATIONS CUTOFF CONC BELOW:
[2023-01-28 20:17] LABS: AMPHETAMINE SCREEN,URINE NEGATIVE (NEGATIVE); BARBITURATE SCREEN,UR NEGATIVE (NEGATIVE); BENZODIAZEPINES SCREEN, URINE NEGATIVE (NEGATIVE); COCAINE SCREEN URINE NEGATIVE (NEGATIVE); METHADONE SCREEN, URINE NEGATIVE (NEGATIVE); METHAMPHETAMINES SCREEN, URINE NEGATIVE (NEGATIVE); OPIATE SCREEN, URINE POSITIVE (NEGATIVE); OXYCODONE SCREEN, URINE NEGATIVE (NEGATIVE); PROPOXYPHENE SCREEN, URINE NEGATIVE (NEGATIVE); THC CANNABINOID SCREEN, URINE POSITIVE (NEGATIVE); TRICYCLIC ANTIDEPRESSANT,URINE NEGATIVE (NEGATIVE)
--- NOTE | 2023-01-28 21:09 | ED Physician Documentation ---
PD HPI ABD PAIN - Stated complaint Stated Complaint: RT SIDE ABD PX/FEVER/VOMIT - Chief complaint Chief Complaint: Abd Pain - History obtained from History obtained from: Patient - History of Present Illness Timing - onset: Yesterday Timing - details: Gradual onset Pain level max: 6 Pain level now: 6 Associated symptoms: No: Hematemesis, Dizzy, Vaginal bleeding, Vaginal dc - Additional information Additional information: 32-year-old female presents to the emergency department with abdominal pain, nausea, vomiting since yesterday. She has had issues with her stomach for the past 6 months. She was seen here approximately 2 weeks ago and had a CT scan which showed a possible mild colitis. She had a pelvic ultrasound that did not have any acute abnormalities either. She is not having pelvic pain today. Does have a history of endometriosis, she states on the right side of her abdomen. No fever here. Nothing makes the pain better or worse. She usually receives hydromorphone from her doctor but is out currently. She states that she is adopted and does not know if there is any family history of IBD or IBS in the family. She states she does have occasional constipation versus diarrhea. Has an IUD in place. Denies any STI exposure. No vaginal discharge or itching. 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 : Other HEENT: Chronic vision loss Psych: ADD/ADHD, Post traumatic stress disorder Musculoskeletal: Chronic back pain Derm: Eczema - Past Surgical History Past Surgical History: Yes General: Cholecystectomy, Appendectomy, Colonoscopy /SUPERVISOR WET ROOM: section, Other - Present Medications Home Medications: Ambulatory Orders Medication Instructions Recorded Confirmed Guanfacine HCl [Intuniv] 1 mg PO DAILY 01/28/23 01/28/23 HYDROmorphone [Dilaudid] 2 mg PO Q6H PRN #14 tablet 01/28/23 buPROPion [Wellbutrin Xl] 150 mg PO DAILY 01/28/23 01/28/23 - Allergies Allergies/Adverse Reactions: Allergies Allergy/AdvReac Type Severity Reaction Status Date / Time cephalexin [From Keflex] Allergy Emesis Verified 01/28/23 18:53 doxycycline Allergy Emesis Verified 01/28/23 18:53 codeine AdvReac Itching Verified 01/28/23 18:53 morphine AdvReac Itching Verified 01/28/23 18:53 - Social History Does the pt smoke?: No Smoking Status: Never smoker Does the pt drink ETOH?: No Does the pt have substance abuse?: No - Immunizations Immunizations are current?: Yes - POLST Patient has POLST: No PD ED PE NORMAL - Vitals Vital signs reviewed: Yes - General General: Alert and oriented X 3, Well developed/nourished, Other (appears in pain) - HEENT HEENT: Moist mucous membranes, Pharynx benign - Neck Neck: Supple, no meningeal sign - Cardiac Cardiac: RRR, Strong equal pulses - Respiratory Respiratory: No respiratory distress, Clear bilaterally - Abdomen Abdomen: Other (Diffusely tender to palpation along the right side of the abdomen, no peritoneal signs. No pelvic tenderness) - Back Back: No CVA TTP, No spinal TTP - Derm Derm: Warm and dry - Extremities Extremities: No edema, No calf tenderness / cord - Neuro Neuro: Alert and oriented X 3 Results - Vitals Vitals: Vital Signs - 24 hr 01/28/23 01/28/23 01/28/23 18:48 19:04 21:07 Temperature 36.7 C 37.1 C Heart Rate 80 71 Respiratory 20 18 Rate Blood Pressure 140/115 H 143/82 H 154/90 H O2 Saturation 100 98 100 01/28/23 21:32 Temperature 37.0 C Heart Rate 70 Respiratory 16 Rate Blood Pressure 138/88 H O2 Saturation 100 Oxygen O2 Source Room air - Labs Labs: Laboratory Tests 01/28/23 01/28/23 01/28/23 18:57 18:57 19:21 WBC 7.1 RBC 3.75 L Hgb 11.8 L Hct 35.5 L MCV 94.7 MCH 31.5 H MCHC 33.2 RDW 12.2 Plt Count 259 MPV 9.8 Neut # (Auto) 5.5 Lymph # (Auto) 1.0 L [place] # (Auto) 0.5 Eos # (Auto) 0.1 Baso # (Auto) 0.0 Absolute Nucleated RBC 0.00 Nucleated RBC % 0.0 ESR Sodium Potassium Chloride Carbon Dioxide Anion Gap BUN Creatinine Estimated GFR (MDRD) Glucose Calcium Total Bilirubin AST ALT Alkaline Phosphatase C-Reactive Protein Total Protein Albumin Globulin Albumin/Globulin Ratio Lipase Urine Color LIGHT YELLOW Urine Clarity CLEAR Urine pH 6.0 Ur Specific [place] <=1.005 Urine Protein NEGATIVE Urine Glucose (UA) NEGATIVE Urine Ketones NEGATIVE Urine Occult Blood NEGATIVE Urine Nitrite NEGATIVE Urine Bilirubin NEGATIVE Urine Urobilinogen 0.2 (NORMAL) Ur Leukocyte Esterase NEGATIVE Ur Microscopic Review NOT INDICATED Urine Culture Comments NOT INDICATED Urine HCG, Qual NEGATIVE Urine Opiates Screen POSITIVE H Ur Oxycodone Screen NEGATIVE Urine Methadone Screen NEGATIVE Ur Propoxyphene Screen NEGATIVE Ur Barbiturates Screen NEGATIVE Ur Tricyclics Screen NEGATIVE Ur Phencyclidine Scrn NEGATIVE Ur Amphetamine Screen NEGATIVE U Methamphetamines Scrn NEGATIVE U Benzodiazepines Scrn NEGATIVE Urine Cocaine Screen NEGATIVE U Cannabinoids Screen POSITIVE H 01/28/23 01/28/23 19:21 19:21 WBC RBC Hgb Hct MCV MCH MCHC RDW Plt Count MPV Neut # (Auto) Lymph # (Auto) [place] # (Auto) Eos # (Auto) Baso # (Auto) Absolute Nucleated RBC Nucleated RBC % ESR 8 Sodium 138 Potassium 3.4 L Chloride 107 Carbon Dioxide 25 Anion Gap 6.0 BUN 11 Creatinine 0.8 Estimated GFR (MDRD) 82 L Glucose 105 H Calcium 9.5 Total Bilirubin 0.5 AST 15 ALT 22 Alkaline Phosphatase 41 L C-Reactive Protein < 0.5 Total Protein 6.6 Albumin 4.4 Globulin 2.2 Albumin/Globulin Ratio 2.0 Lipase 22 Urine Color Urine Clarity Urine pH Ur Specific [place] Urine Protein Urine Glucose (UA) Urine Ketones Urine Occult Blood Urine Nitrite Urine Bilirubin Urine Urobilinogen Ur Leukocyte Esterase Ur Microscopic Review Urine Culture Comments Urine HCG, Qual Urine Opiates Screen Ur Oxycodone Screen Urine Methadone Screen Ur Propoxyphene Screen Ur Barbiturates Screen Ur Tricyclics Screen Ur Phencyclidine Scrn Ur Amphetamine Screen U Methamphetamines Scrn U Benzodiazepines Scrn Urine Cocaine Screen U Cannabinoids Screen PD Medical Decision Making - ED course Complexity details: reviewed results, re-evaluated patient, considered differential, d/w patient ED course: 32-year-old female with ongoing abdominal pain for the past 6 months. Has had extensive emergency department workups including CT scan and ultrasound recently. She has had a cholecystectomy and appendectomy. Afebrile here. No significant lab abnormalities. Inflammatory markers are negative. We did send HLA-B27 testing, this will be followed up by her PCP Dr. Torres. The patient was informed that the ER will not follow-up this test. Patient has a referral in February for a GI specialist. She is also seeing her tower observer for her endometriosis. Unclear if this pain represents a GI source versus endometriosis. Patient does use marijuana daily, but does not appear to be having cannabinoid hyperemesis. Pain resolved with Dilaudid here. She is out of her normal Dilaudid at home therefore we will prescribe her a small amount. Tolerating p.o. without difficulty. Abdomen soft, nontender nondistended on serial exam. Patient does not want any further imaging today and I think that is reasonable given her history. Patient counseled regarding signs and symptoms for which I believe and urgent re-evaluation would be necessary. Patient with good understanding of and agreement to plan and is comfortable going home at this time This document was made in part using voice recognition software. While efforts are made to proofread this document, sound alike and grammatical errors may occur. Departure - Departure Disposition: 01 Home, Self Care Clinical Impression: Abdominal pain Qualifiers: Abdominal location: unspecified location Qualified Code(s): R10.9 - Unspecified abdominal pain Condition: Good Instructions: ED Abdominal Pain Female Non-Specific Abdominal Pain Follow-Up: Maico Torres MD [Primary Care Provider] - Prescriptions: HYDROmorphone [Dilaudid] 2 mg PO Q6H PRN #14 tablet PRN Reason: Abdominal Pain Comments: Please follow-up with Dr. Torres for further care. Please return if you worsen. There is an HLA-B27 test that was sent tonight, this can be a marker for inflammatory bowel diseases. Your prescriptions were sent to the [facility] pharmacy. The cause of your symptoms is unclear today, it may be related to IBS, IBD, endometriosis or another cause. Please return if you worsen. I am prescribing a short course of narcotic pain medication for you. These are potentially dangerous and addictive medications that should be used carefully. These medications may constipate you. Take an gwzc-qvc-oqgfmuv stool softener (docusate) twice daily with plenty of water while taking these medications. If you go 24 hours without a bowel movement, take arle-zmm-kbyvutx miralax, per package instructions. Do not drink or drive while taking these medications. If you received narcotic or sedating medications while in the emergency department, do not drive for 24 hours. Store this medication in a safe, secure place and out of reach of children. It is a violation of federal law to give or sell this medication to another person or to use in a manner other than prescribed. The ED will not refill narcotic prescriptions, including prescriptions lost or stolen. To dispose of unwanted medications: 1. [facility] at [address] in [place] has a medication drop box. They accept prescription medications (in pil l form) Sunday through Sunday 9:00 a.m. to 5:00 p.m. 2. The [facility] Police Department accepts prescription medications (in pill form only) for disposal year round. Call for more information. 3. Contact the [facility] for the next [facility] sponsored prescription drug collection event. , [phone], or [phone]; Forms: PCP List Discharge Date/Time: 01/28/23 21:15
[2023-01-28 21:16] VITALS: O2SAT 100
[2023-01-28 21:34] VITALS: BP 138/88
== END 2023-01-28 21:15 | disposition home or self-care (01) ==
LOC: ED 18:45
DX: R10.9 Unspecified abdominal pain (principal)
CPT/HCPCS: 36415; 80053; 80306; 81003; 81025; 81374; 83690; 85025; 85651; 86140; 96372; 96374; 96375; 99283; A9270; J1170; 81001; 87086

== ENCOUNTER 2023-03-16 17:51 | Emergency (ER) | payer OTHER ==
[2023-03-16] MEDS ORDERED: ONDANSETRON ODT 4 MG TABLET TL STA (18:07)
[2023-03-16 18:22] LABS: BASOPHILS % (AUTO) 0.5 %; EOSINOPHILS % (AUTO) 0.4 %; HCT - HEMATOCRIT 38.2 % (37.0-47.0); HGB - HEMOGLOBIN 12.7 g/dL (12.0-16.0); LYMPHOCYTES % (AUTO) 18.2 %; MEAN CORPUSCULAR HEMOGLOBIN 31.3 pg (27.0-31.0); MEAN CORPUSCULAR HGB CONC 33.2 g/dL (32.0-36.0); MEAN CORPUSCULAR VOLUME 94.1 fL (81.0-99.0); MONOCYTES # (AUTO) 0.4 10^3/uL (0.0-1.0); MONOCYTES % (AUTO) 7.9 %; NEUTROPHILS % (AUTO) 72.8 %; PLT - PLATELET COUNT 297 10^3/uL (130-450); RED BLOOD COUNT 4.06 10^6/uL (4.20-5.40); WHITE BLOOD COUNT 5.6 x10^3/uL (4.8-10.8)
[2023-03-16 18:38] LABS: ALBUMIN 4.6 g/dL (3.2-5.5); ALBUMIN/GLOBULIN RATIO 1.6 (1.0-2.2); BILIRUBIN,TOTAL 0.6 mg/dL (0.2-1.0); CALCIUM 9.8 mg/dL (8.5-10.3); CREATININE 0.9 mg/dL (0.6-1.3); POTASSIUM 4.2 mmol/L (3.5-4.5); TOTAL PROTEIN 7.5 g/dL (6.4-8.9)
[2023-03-16] MEDS ORDERED: ONDANSETRON 4 MG/2 ML VIAL IVP STA (20:30)
[2023-03-16] MEDS ORDERED: HYDROmorphone 0.5 MG/0.5 ML SYRINGE IVP STA ×2 (20:30→21:36)
[2023-03-16 21:16] LABS: BILIRUBIN,URINE NEGATIVE (NEGATIVE); GLUCOSE, URINE (UA) NEGATIVE (NEGATIVE); KETONES,URINE (UA) 40 mg/dL (NEGATIVE); LEUKOCYTE ESTERASE, URINE NEGATIVE (NEGATIVE); NITRITE,URINE NEGATIVE (NEGATIVE); OCCULT BLOOD,URINE NEGATIVE (NEGATIVE); PROTEIN,URINE TRACE mg/dL (NEGATIVE); UROBILINOGEN,URINE 1 (NORMAL) E.U./dL (NORMAL)
[2023-03-16 21:19] LABS: CLARITY,URINE CLEAR (CLEAR); HCG UR QUAL NEGATIVE
--- NOTE | 2023-03-16 22:03 | ED Physician Documentation ---
PD HPI ABD PAIN - Stated complaint Stated Complaint: ABD PX,N/V,FEVER - Chief complaint Chief Complaint: Abd Pain - Additional information Additional information: 32-year-old female presents to the emergency department for right lower quadrant pain. Patient reports that she has a history of endometriosis and is planning on having hysterectomy in a couple months with a new surgeon she found that [facility] who specializes in endometrial excision surgery. Patient is on chronic Dilaudid takes 4 mg as needed for pain and reports that home it has not been working. She reports having an temperature of 100.0 Fahrenheit at home and is worried about a fever she went to her primary care provider where they attempted to do a Toradol injection without any relief. She does not have any dysuria, no CVA tenderness, reports this does feel similar to previous endometriosis flares. 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 : Other HEENT: Chronic vision loss Psych: ADD/ADHD, Post traumatic stress disorder Musculoskeletal: Chronic back pain Derm: Eczema - Past Surgical History Past Surgical History: Yes General: Cholecystectomy, Appendectomy, Colonoscopy /COMMUTATOR OPERATOR: section, Other - Present Medications Home Medications: Ambulatory Orders Medication Instructions Recorded Confirmed Guanfacine HCl [Intuniv] 1 mg PO DAILY 01/28/23 01/28/23 HYDROmorphone [Dilaudid] 2 mg PO Q6H PRN #14 tablet 01/28/23 buPROPion [Wellbutrin Xl] 150 mg PO DAILY 01/28/23 01/28/23 - Allergies Allergies/Adverse Reactions: Allergies Allergy/AdvReac Type Severity Reaction Status Date / Time cephalexin [From Keflex] Allergy Emesis Verified 03/16/23 18:07 doxycycline Allergy Emesis Verified 03/16/23 18:07 codeine AdvReac Itching Verified 03/16/23 18:07 morphine AdvReac Itching Verified 03/16/23 18:07 - Social History Does the pt smoke?: No Smoking Status: Never smoker Does the pt drink ETOH?: No Does the pt have substance abuse?: No - Immunizations Immunizations are current?: Yes - POLST Patient has POLST: No PD ED PE NORMAL - Vitals Vital signs reviewed: Yes - General General: Alert and oriented X 3, Well developed/nourished - Respiratory Respiratory: No respiratory distress - Abdomen Abdomen: Normal bowel sounds, Soft (Tenderness to right lower quadrant) - Derm Derm: Normal color, No rash Results - Vitals Vitals: Vital Signs - 24 hr 03/16/23 03/16/23 03/16/23 18:02 20:06 22:06 Temperature 36.7 C Heart Rate 90 100 67 Respiratory 16 19 17 Rate Blood Pressure 130/94 H 130/79 139/78 H O2 Saturation 100 99 98 03/16/23 22:37 Temperature Heart Rate 67 Respiratory 17 Rate Blood Pressure 139/78 H O2 Saturation 98 Oxygen O2 Source Room air - Labs Labs: Laboratory Tests 03/16/23 03/16/23 03/16/23 18:17 18:17 21:04 WBC 5.6 RBC 4.06 L Hgb 12.7 Hct 38.2 MCV 94.1 MCH 31.3 H MCHC 33.2 RDW 12.0 Plt Count 297 MPV 9.0 Neut # (Auto) 4.0 Lymph # (Auto) 1.0 L [place] # (Auto) 0.4 Eos # (Auto) 0.0 Baso # (Auto) 0.0 Absolute Nucleated RBC 0.00 Nucleated RBC % 0.0 Sodium 140 Potassium 4.2 Chloride 104 Carbon Dioxide 28 Anion Gap 8.0 BUN 13 Creatinine 0.9 Estimated GFR (MDRD) 72 L Glucose 84 Calcium 9.8 Total Bilirubin 0.6 AST 13 ALT 10 Alkaline Phosphatase 51 Total Protein 7.5 Albumin 4.6 Globulin 2.9 Albumin/Globulin Ratio 1.6 Lipase 68 Urine Color YELLOW Urine Clarity CLEAR Urine pH 6.0 Ur Specific [place] 1.020 Urine Protein TRACE Urine Glucose (UA) NEGATIVE Urine Ketones 40 H Urine Occult Blood NEGATIVE Urine Nitrite NEGATIVE Urine Bilirubin NEGATIVE Urine Urobilinogen 1 (NORMAL) Ur Leukocyte Esterase NEGATIVE Ur Microscopic Review NOT INDICATED Urine Culture Comments NOT INDICATED Urine HCG, Qual NEGATIVE - Rads (name of study) Pelvic/transvaginal Doppler ultrasound Relevant Findings:: Final report received, EMP independent interpretation of test (no ovarian torsion, no ovarian cysts) PD Medical Decision Making - ED course ED course: 28-year-old female presents with right lower quadrant pain. Patient no longer has appendix. Transvaginal/pelvic Doppler ultrasound was complete for possible ovarian torsion or possible ovarian cyst or ruptured ovarian cyst and all were found to be negative. Patient remains hemodynamically stable no fever here in the emergency department. Patient was given 3 doses of IV 0.5 mg Dilaudid she requested the third dose to be intramuscular so that it would last longer and was asking for a higher dose.) The patient that she should continue with the 0.5 mg IV Dilaudid. Follow-up with primary care provider for ongoing chronic pain management and return precautions given. I believe that patient is experiencing an endometriosis flareup and she was encouraged to follow-up with surgeon at [facility] for hysterectomy or endometrial excision surgery as planned. Departure - Departure Disposition: 01 Home, Self Care Clinical Impression: Endometriosis Condition: Good Instructions: ED Endometriosis Comments: You have been evaluated in the emergency department for right lower quadrant pain. We have completed an ultrasound to rule out possible ovarian torsion and further evaluation of possible other ovarian abscesses which were not identified. I believe you are experiencing an endometriosis flare, please continue with your at home pain medications as prescribed, hot pads, and try warm baths. I hope you are able to get in with your surgeon soon for your surgery. Please come back to the emergency department if your having any worsening abdominal pain that you are experiencing right now for further evaluation, ongoing fevers greater than 101 Fahrenheit, or any other concerning symptoms. Forms: PCP List Discharge Date/Time: 03/16/23 22:38
[2023-03-16] MEDS ORDERED: HYDROmorphone 0.5 MG/0.5 ML SYRINGE IM STA (22:07)
[2023-03-16 22:42] VITALS: BP 139/78; O2SAT 98
--- NOTE | 2023-03-16 22:56 | Ultrasound Report ---
PROCEDURE: Pelvic w/Doppler Limited INDICATIONS: r/o ovarian torsion TECHNIQUE: Real-time transabdominal scanning was performed of the pelvic organs, with image documentation. Dopp ler interrogation was performed of the ovaries bilaterally. COMPARISON: CT abdomen and pelvis 01/10/2023.. FINDINGS: Uterus: Uterus is anteverted and normal in size at 7.4 x 4.7 x 3.8 cm. The myometrium is heterogene ous. The endometrium measures 7 mm in combined thickness. IUD is present. Ovaries: The right ovary measures 2.8 x 2.7 x 1.7 cm, with a calculated ovarian volume of 7 cc. The left ovary measures 2.8 x 2.6 x 2.2 cm, with a calculated ovarian volume of 8 cc. Appropriate blood flow to the ovaries with Doppler interrogation. Greater than 12 follicles can be seen in each ovar y. No adnexal masses are seen. No cystic lesions measuring greater than 3 cm. Other: No pathologic free abdominal or pelvic fluid. IMPRESSION: Technically difficult exam due to acoustic windows and bowel gas. No ovarian torsion demonstrated. Endometrium measures 7 mm. IUD in the pelvis. Reviewed by: Stanislav Ackerman MD on 03/16/2023 10:54 PM PST Approved by: Stanislav Ackerman MD on 03/16/2023 10:54 PM PST Station ID: [id number]
== END 2023-03-16 22:38 | disposition home or self-care (01) ==
LOC: ED 17:51
DX: N80.00 Endometriosis of the uterus, unspecified (principal); R09.89 Other specified symptoms and signs involving the circulatory and respiratory systems
CPT/HCPCS: 36415; 76856; 80053; 81003; 81025; 83690; 85025; 93976; 96372; 96374; 96376; 99284; J1170; 81001; 87086

== ENCOUNTER 2023-03-25 20:58 | Emergency (ER) | payer OTHER ==
--- NOTE | 2023-03-25 21:43 | XRAY Report ---
PROCEDURE: Hand 3+V LT INDICATIONS: Trauma TECHNIQUE: 3 views of the hand(s) acquired. COMPARISON: None. FINDINGS: Bones: No fractures or dislocations. No suspicious bony lesions. Soft tissues: No suspicious soft tissue calcifications or masses. IMPRESSION: No acute bony abnormality. Reviewed by: Jacob Stanley MD on 03/25/2023 9:41 PM PST Approved by: Jacob Stanley MD on 03/25/2023 9:41 PM [facility] Station ID: [id number]
--- NOTE | 2023-03-25 21:49 | ED Physician Documentation ---
PD HPI UPPER EXT INJURY - Stated complaint Stated Complaint: LT HAND INJ - Chief complaint Chief Complaint: Trauma Ext - History obtained from History obtained from: Patient - History of Present Illness Location: Left, Finger - Additonal information Additional information: 32-year-old female presents for evaluation of left hand injury earlier today. Patient was doing [employer] and excellently injured her hand. She states that she feels a "clicking" at the base of her left ring finger when she moves it. Has been taking Tylenol and icing it without relief of pain. Review of Systems Constitutional: denies: Fever, Chills Musculoskeletal: reports: Extremity pain, Joint pain. 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 : Other HEENT: Chronic vision loss Psych: ADD/ADHD, Post traumatic stress disorder Musculoskeletal: Chronic back pain Derm: Eczema - Past Surgical History Past Surgical History: Yes General: Cholecystectomy, Appendectomy, Colonoscopy /CAR LOADER: section, Other - Present Medications Home Medications: Ambulatory Orders Medication Instructions Recorded Confirmed Guanfacine HCl [Intuniv] 1 mg PO DAILY 01/28/23 03/25/23 HYDROmorphone [Dilaudid] 2 mg PO Q6H PRN #14 tablet 01/28/23 03/25/23 buPROPion [Wellbutrin Xl] 150 mg PO DAILY 01/28/23 03/25/23 - Allergies Allergies/Adverse Reactions: Allergies Allergy/AdvReac Type Severity Reaction Status Date / Time cephalexin [From Keflex] Allergy Emesis Verified 03/25/23 21:01 doxycycline Allergy Emesis Verified 03/25/23 21:01 codeine AdvReac Itching Verified 03/25/23 21:01 morphine AdvReac Itching Verified 03/25/23 21:01 - Social History Does the pt smoke?: No Smoking Status: Never smoker Does the pt drink ETOH?: No Does the pt have substance abuse?: No - Immunizations Immunizations are current?: Yes - POLST Patient has POLST: No PD ED PE NORMAL - Vitals Vital signs reviewed: Yes - General General: Alert and oriented X 3, No acute distress - Cardiac Cardiac: RRR - Respiratory Respiratory: No respiratory distress - Derm Derm: Normal color, Warm and dry, No rash - Extremities Extremities: Other (bruising at base of L ring finger. Full ROM, capillary refill <2 seconds) - Neuro Neuro: Alert and oriented X 3, start up specialist 2-12 intact, Normal speech Results - Vitals Vitals: Vital Signs - 24 hr 03/25/23 03/25/23 21:01 22:23 Temperature 36.8 C Heart Rate 60 59 L Respiratory 18 16 Rate Blood Pressure 132/76 H 112/63 O2 Saturation 98 59 L Oxygen O2 Source Room air PD Medical Decision Making - ED course Complexity details: reviewed results, re-evaluated patient, considered differential, d/w patient ED course: Left ring finger injury while playing [employer]. There is bruising at the base of her finger, but she has full range of motion. X-rays negative for acute findings. Patient counseled to take Tylenol and Motrin as needed for pain at home. Patient states that she has been having difficulties taking anti- inflammatories recently due to ongoing GI upset, and requested that a anti- inflammatory be administered here, and a shot of Toradol was provided. Patient declined a splint in the emergency department stating that she had 1 at home that she could use. She was advised to continue to use Tylenol as needed for pain and apply ice, and recommended keeping the limb elevated to decrease swelling and pain. Departure - Departure Disposition: 01 Home, Self Care Clinical Impression: Finger sprain Condition: Stable Instructions: ED Sprain Finger Comments: Continue to take Tylenol for pain at home. Apply ice and keep hand elevated to help decrease swelling. Wear the splint as needed for comfort. Forms: PCP List Discharge Date/Time: 03/25/23 22:25
[2023-03-25] MEDS ORDERED: KETOROLAC 30 MG/ML VIAL IM STA (21:54)
[2023-03-25 22:30] VITALS: BP 112/63; O2SAT 59
== END 2023-03-25 22:25 | disposition home or self-care (01) ==
LOC: ED 20:58
DX: S63.615A Unspecified sprain of left ring finger, initial encounter (principal); Y93.75 Activity, martial arts
CPT/HCPCS: 96372; 99283

== ENCOUNTER 2023-06-25 10:14 | Emergency (ER) | payer SELFPAY ==
[2023-06-25 10:27] VITALS: O2SAT 100
--- NOTE | 2023-06-25 11:11 | ED Physician Documentation ---
History of Present Illness - Stated complaint Stated Complaint: RT SIDE FACE PX/SWELLING - Chief complaint Chief Complaint: General - Additonal information Additional information: 32-year-old female with few days of worsening swelling and redness of her face. She was seen at [facility] emergency department yesterday she states and started on . Redness and swelling are about the same. No fevers or chills. 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 : Other HEENT: Chronic vision loss Psych: ADD/ADHD, Post traumatic stress disorder Musculoskeletal: Chronic back pain Derm: Eczema - Past Surgical History Past Surgical History: Yes General: Cholecystectomy, Appendectomy, Colonoscopy /CREAM HAULER: section, Other - Present Medications Home Medications: Ambulatory Orders Medication Instructions Recorded Confirmed Guanfacine HCl [Intuniv] 1 mg PO BID 01/28/23 06/25/23 buPROPion [Wellbutrin Xl] 400 mg PO DAILY 01/28/23 06/25/23 Amox/Clav 500/125 [Augmentin 1 tablet PO Q12H #14 tablet 06/25/23 500/125] HYDROmorphone [Dilaudid] 4 mg PO Q6H PRN 06/25/23 06/25/23 Sulfamethox/Trimeth 800/160 1 tablet PO BID 06/25/23 06/25/23 [Bactrim Ds] - Allergies Allergies/Adverse Reactions: Allergies Allergy/AdvReac Type Severity Reaction Status Date / Time cephalexin [From Keflex] Allergy Emesis Verified 06/25/23 10:20 doxycycline Allergy Emesis Verified 06/25/23 10:20 codeine AdvReac Itching Verified 06/25/23 10:20 morphine AdvReac Itching Verified 06/25/23 10:20 - Social History Does the pt smoke?: No Smoking Status: Never smoker Does the pt drink ETOH?: No Does the pt have substance abuse?: No - Immunizations Immunizations are current?: Yes - POLST Patient has POLST: No PD ED PE NORMAL - General General: Alert and oriented X 3 - HEENT HEENT: Other (She has right infraorbital swelling extending down into the cheek. Mild erythema and some crusting. Few open areas on her right cheek as well which she says are due to some acne products. Full painless range of motion of her eyes bilaterally.) - Cardiac Cardiac: RRR - Respiratory Respiratory: No respiratory distress, Clear bilaterally - Abdomen Abdomen: Normal bowel sounds - Neuro Neuro: Alert and oriented X 3 Results - Vitals Vitals: Vital Signs - 24 hr 06/25/23 06/25/23 10:21 12:26 Temperature 36.4 C L 36.5 C Heart Rate 89 88 Respiratory 16 16 Rate Blood Pressure 130/96 H 126/88 H O2 Saturation 100 100 Oxygen O2 Source Room air PD Medical Decision Making - ED course ED course: Patient with ongoing facial cellulitis. She was only given monotherapy with Septra, we will give her some IV Unasyn and broaden her antibiotics for Augmentin for home. She is given a dose of Toradol here request more narcotic pain medication I note that reviewing her katherine that she is on chronic pain management by her PCP and I requested that she get further narcotic pain meds f or her from her primary doctor. No sign of orbital cellulitis, stable for DC home Departure - Departure Disposition: Home, Self Care Clinical Impression: Facial cellulitis Instructions: ED Cellulitis Facial Prescriptions: Amox/Clav 500/125 [Augmentin 500/125] 1 tablet PO Q12H #14 tablet Comments: Please continue the Septra that you are given at [facility]. We gave you IV antibiotics here and We will add Augmentin to broaden the coverage for your antibiotics. Follow-up with primary care for ongoing pain management issues. Forms: PCP List
[2023-06-25] MEDS: KETOROLAC 15 MG/ML VIAL IVP STA (11:43)
[2023-06-25] MEDS: AMPICILLIN/SULBACTAM 1.5 GM in SODIUM CHLORIDE 0.9% MINIBAG 100 ML IV STA (11:43)
[2023-06-25 12:33] VITALS: BP 126/88
== END 2023-06-25 12:45 | disposition home or self-care (01) ==
LOC: ED 10:14
DX: L03.211 Cellulitis of face (principal); Z79.899 Other long term (current) drug therapy
CPT/HCPCS: 96365; 96375; 99283

== ENCOUNTER 2023-07-23 16:01 | Emergency (ER) | payer SELFPAY ==
[2023-07-23 16:10] VITALS: O2SAT 100
[2023-07-23 16:18] LABS: BASOPHILS % (AUTO) 0.3 %; EOSINOPHILS % (AUTO) 0.7 %; HCT - HEMATOCRIT 40.4 % (37.0-47.0); HGB - HEMOGLOBIN 12.7 g/dL (12.0-16.0); LYMPHOCYTES # (AUTO) 1.3 10^3/uL (1.5-3.5); LYMPHOCYTES % (AUTO) 22.1 %; MEAN CORPUSCULAR HEMOGLOBIN 31.1 pg (27.0-31.0); MEAN CORPUSCULAR HGB CONC 31.4 g/dL (32.0-36.0); MEAN CORPUSCULAR VOLUME 98.8 fL (81.0-99.0); MEAN PLATELET VOLUME 8.9 fL (7.9-10.8); MONOCYTES # (AUTO) 0.4 10^3/uL (0.0-1.0); MONOCYTES % (AUTO) 6.3 %; NEUTROPHILS # (AUTO) 4.2 10^3/uL (1.5-6.6); NEUTROPHILS % (AUTO) 70.1 %; PLT - PLATELET COUNT 290 10^3/uL (130-450); RED BLOOD COUNT 4.09 10^6/uL (4.20-5.40); RED CELL DISTRIBUTION WIDTH 13.1 % (12.0-15.0); WHITE BLOOD COUNT 5.9 x10^3/uL (4.8-10.8)
[2023-07-23 16:39] LABS: ALBUMIN 4.4 g/dL (3.2-5.5); ALBUMIN/GLOBULIN RATIO 1.6 (1.0-2.2); BILIRUBIN,TOTAL 0.8 mg/dL (0.2-1.0); CALCIUM 9.6 mg/dL (8.5-10.3); CREATININE 0.9 mg/dL (0.6-1.3); POTASSIUM 4.1 mmol/L (3.5-4.5); TOTAL PROTEIN 7.1 g/dL (6.4-8.9)
--- NOTE | 2023-07-23 20:25 | ED Physician Documentation ---
History of Present Illness - Stated complaint Stated Complaint: /NAUSEA - Chief complaint Chief Complaint: General - History obtained from History obtained from: Patient - Additonal information Additional information: The patient comes to the emergency department chief complaint of pelvic pain after having sexual intercourse yesterday and this morning. She states that after intercourse yesterday, she noticed onset of waves of deep pelvic pain but that these finally resolved and she was able to be fairly comfortable overnight. She also had some vaginal spotting at that time. This morning, she and her boyfriend had sex again and this time, she had stronger pains and return of spotting and felt like her IUD strings were longer than they normally are. She is concerned that her IUD has been dislodged and is causing the pain. The patient denies any unusual discharge otherwise. She is not aware of any symptoms that her boyfriend has. She states she has been nauseated and has vomited with the waves of pain. 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 : Other HEENT: Chronic vision loss Psych: ADD/ADHD, Post traumatic stress disorder Musculoskeletal: Chronic back pain Derm: Eczema - Past Surgical History Past Surgical History: Yes General: Cholecystectomy, Appendectomy, Colonoscopy /COMPUTER HELP DESK SPECIALIST: section, Other - Present Medications Home Medications: Ambulatory Orders Medication Instructions Recorded Confirmed Guanfacine HCl [Intuniv] 1 mg PO BID 01/28/23 06/25/23 buPROPion [Wellbutrin Xl] 400 mg PO DAILY 01/28/23 06/25/23 Amox/Clav 500/125 [Augmentin 1 tablet PO Q12H #14 tablet 06/25/23 500/125] HYDROmorphone [Dilaudid] 4 mg PO Q6H PRN 06/25/23 06/25/23 Sulfamethox/Trimeth 800/160 1 tablet PO BID 06/25/23 06/25/23 [Bactrim Ds] traMADol [Ultram] 50 mg PO Q4-6H PRN #5 tablet 07/23/23 - Allergies Allergies/Adverse Reactions: Allergies Allergy/AdvReac Type Severity Reaction Status Date / Time cephalexin [From Keflex] Allergy Emesis Verified 07/23/23 16:04 doxycycline Allergy Emesis Verified 07/23/23 16:04 codeine AdvReac Itching Verified 07/23/23 16:04 morphine AdvReac Itching Verified 07/23/23 16:04 - Social History Does the pt smoke?: No Smoking Status: Never smoker Does the pt drink ETOH?: No Does the pt have substance abuse?: No - Immunizations Immunizations are current?: Yes - POLST Patient has POLST: No PD ED PE NORMAL - Vitals Vital signs reviewed: Yes - General General: Alert and oriented X 3, No acute distress, Well developed/nourished - HEENT HEENT: Atraumatic, EOMI, Moist mucous membranes - Neck Neck: Supple, no meningeal sign - Cardiac Cardiac: RRR, No murmur - Respiratory Respiratory: No respiratory distress, Clear bilaterally - Abdomen Abdomen: Soft, Non distended, Other (mild suprapubic tenderness, no rebound/guarding) - Female Female : Metal Riveter present, Other (Normal female genitalia. Moderate discharge, nonmalodorous, blood-tinged. No CMT. IUD not visualized externally.) - Derm Derm: Normal color, Warm and dry, No rash - Extremities Extremities: No deformity - Neuro Neuro: Alert and oriented X 3 - Psych Psych: Normal mood, Normal affect Results - Vitals Vitals: Oxygen O2 Source Room air - Labs Labs: Laboratory Tests 07/23/23 07/23/23 07/23/23 16:14 16:14 20:48 WBC 5.9 RBC 4.09 L Hgb 12.7 Hct 40.4 MCV 98.8 MCH 31.1 H MCHC 31.4 L RDW 13.1 Plt Count 290 MPV 8.9 Neut # (Auto) 4.2 Lymph # (Auto) 1.3 L [place] # (Auto) 0.4 Eos # (Auto) 0.0 Baso # (Auto) 0.0 Absolute Nucleated RBC 0.00 Nucleated RBC % 0.0 Sodium 140 Potassium 4.1 Chloride 105 Carbon Dioxide 29 Anion Gap 6.0 BUN 19 Creatinine 0.9 Estimated GFR (MDRD) 72 L Glucose 120 H Calcium 9.6 Total Bilirubin 0.8 AST 15 ALT 11 Alkaline Phosphatase 48 Total Protein 7.1 Albumin 4.4 Globulin 2.7 Albumin/Globulin Ratio 1.6 Lipase 16 Urine Color YELLOW Urine Clarity CLEAR Urine pH 6.0 Ur Specific [place] 1.025 Urine Protein NEGATIVE Urine Glucose (UA) NEGATIVE Urine Ketones NEGATIVE Urine Occult Blood NEGATIVE Urine Nitrite NEGATIVE Urine Bilirubin NEGATIVE Urine Urobilinogen 0.2 (NORMAL) Ur Leukocyte Esterase NEGATIVE Ur Microscopic Review NOT INDICATED Urine Culture Comments NOT INDICATED Urine HCG, Qual NEGATIVE - Rads (name of study) Pelvic US Relevant Findings:: Final report received, See rad report (R ovarian cyst, IUD in good placement.) PD Medical Decision Making - ED course Complexity details: reviewed old records, reviewed results, re-evaluated patient, considered differential, d/w patient ED course: THe pt was treated symptomatically, and worked up with UA and US. IUD was found to be in good placement. UA was negative. The pt was found to have a large R ovarian cyst, which may be the source of the sx. We have discussed the need for follow-up for this issue. We have also discussed the usual indications for return. Departure - Departure Disposition: 01 Home, Self Care Clinical Impression: Pelvic pain in female Ovarian cyst Qualifiers: Laterality: right Qualified Code(s): N83.201 - Unspecified ovarian cyst, right side Condition: Stable Instructions: ED Cyst Ovarian Follow-Up: Immanuel Olson MD [Provider Admit Priv/Credential] - Prescriptions: traMADol [Ultram] 50 mg PO Q4-6H PRN #5 tablet PRN Reason: Analgesia Comments: Your ultrasound looks good as far as your IUD is concerned. Your right ovary does show a fairly good sized cyst, which could be the cause of the pain, given that you have had sex a couple of times in the last 24 hours and the jarring certainly causes traction on adjacent structures which could cause pain and some spasm of the uterus. Please follow-up with the gynecology specialist for further concerns and also, for further symptomatic management, should your symptoms continue. A prescription for pain medication has been electronically transmitted to the [facility] in [place]. Please pick this up tomorrow morning. You have been given sedating medication in the emergency department tonight and should not drive for 8 hours. Forms: PCP List Discharge Date/Time: 07/23/23 22:50
[2023-07-23] MEDS: HYDROmorphone 1 MG/ML CARPUJECT IM STA (20:39)
[2023-07-23] MEDS: KETOROLAC 60 MG/2 ML VIAL IM STA (20:42)
[2023-07-23 20:55] LABS: BILIRUBIN,URINE NEGATIVE (NEGATIVE); GLUCOSE, URINE (UA) NEGATIVE (NEGATIVE); KETONES,URINE (UA) NEGATIVE (NEGATIVE); LEUKOCYTE ESTERASE, URINE NEGATIVE (NEGATIVE); NITRITE,URINE NEGATIVE (NEGATIVE); OCCULT BLOOD,URINE NEGATIVE (NEGATIVE); PROTEIN,URINE NEGATIVE (NEGATIVE); UROBILINOGEN,URINE 0.2 (NORMAL) E.U./dL (NORMAL)
[2023-07-23 20:59] LABS: CLARITY,URINE CLEAR (CLEAR); HCG UR QUAL NEGATIVE
--- NOTE | 2023-07-23 21:04 | Ultrasound Report ---
PROCEDURE: Pelvic w/Transvag+Doppler Comp INDICATIONS: pelvic pain, vag bleed after sex, ?IUD prob TECHNIQUE: Real-time scanning was performed of the pelvic organs, with image documentation. Additional endovagi nal scanning was necessary due to incomplete visualization of the adnexal and endometrial structures by transabdominal scanning. Doppler interrogation was performed of the ovaries bilaterally. COMPARISON: Pelvic ultrasound 03/16/2023. FINDINGS: Transabdominal scanning only was performed. The patient declined transvaginal scanning. Uterus: Uterus is anteverted and normal in size at 3.7 x 5.0 x 11.2 cm. The myometrium is mildly he terogeneous. The endometrium measures 4.5 mm in combined thickness. A centrally positioned IUD is p resent. Ovaries: The right ovary measures 6.5 x 3.0 x 3.7 cm, with a calculated ovarian volume of 37.9 cc. This is predominantly secondary to a 3.6 x 3.1 x 3.2 cm right ovarian cyst. The left ovary measures 2 .3 x 1.9 x 2.2 cm, with a calculated ovarian volume of 5.0 cc. Appropriate blood flow to the ovaries with Doppler interrogation. Less than 12 follicles can be seen in each ovary. No adnexal masses a re seen. No cystic lesions measuring greater than 3 cm. Other: No pathologic free abdominal or pelvic fluid. IMPRESSION: No evidence of ovarian torsion bilaterally. Dominant left ovarian cyst measuring up to 3.6 cm in maxi mal dimension. Reviewed by: Clifford Spence MD on 07/23/2023 9:02 PM PDT Approved by: Cliffodr Spence MD on 07/23/2023 9:02 PM PDT Station ID: [id number]
[2023-07-23 21:27] VITALS: BP 148/112
[2023-07-23] MEDS: HYDROmorphone 0.5 MG/0.5 ML SYRINGE IM STA (21:49)
[2023-07-23] MEDS: HYDROcod/ACETAM 5/325 MG TABLET PO STA (21:49)
[2023-07-23] MEDS: HYDROcod/ACET 5/325 Prepack 4 PO STA (22:47)
== END 2023-07-23 22:50 | disposition home or self-care (01) ==
LOC: ED 16:01
DX: N83.201 Unspecified ovarian cyst, right side (principal); Z97.5 Presence of (intrauterine) contraceptive device; Z79.899 Other long term (current) drug therapy
CPT/HCPCS: 36415; 76830; 76856; 80053; 81003; 81025; 83690; 85025; 93975; 96372; 99284; A9270; J1170; 81001; 87086